=== PATIENT | male | born 1940 | race Caucasian/White ===

== ENCOUNTER → 2016-11-16 | Outpatient (CLI) | payer MEDICARE, OTHER ==
[~2016-11-16] MED LIST: AMLO5TAB2 PO; ATOR1TAB19 PO; CARV3.12 PO; CARV6.25 PO; CEFD300CAP PO; COLA100C PO; DRIS50002 PO; FINA5TAB2 PO; FLOM5CAP PO; GLYB5TA PO; JANU100T PO; LEVA250T PO; LISI-538 PO; MILKSUS PO; NORC5TAB PO; OMEP40CA2 PO; SENO8.6T2 PO; TRIA37.5 PO; TYLE325T5 PO; VITA200028 PO
== END ==
LOC: M LAB 16:29
PROVIDERS: ATTEND Nurse Practitioner Family
DX: E11.9 Type 2 diabetes mellitus without complications (principal)

== ENCOUNTER → 2016-11-16 | Outpatient (CLI) | payer MEDICARE, OTHER ==
--- NOTE | 2016-11-16 17:16 | REP ---
CT head without contrast: History: Normal pressure hydrocephalus. Comparison: 12/06/2015 Areas of decreased attenuation are present in the periventricular white matter. This represents small vessel ischemic disease. There is no intraparenchymal hemorrhage, mass or midline shift. A shunt is present in the left lateral ventricle. There is dilatation of the ventricular system consistent with mild hydrocephalus that is slightly decreased compared to the previous study. The cortical sulci are dilated consistent with mild volume loss. There is no extracerebral collection. Minimal mucosal thickening is present in the right ethmoid and the left sphenoid sinuses. IMPRESSION: 1. Small vessel ischemic disease. 2. Mild hydrocephalus is present that is slightly decreased compared to the previous study. A shunt is present in the left lateral ventricle. 3. Mild volume loss. Signed by Benito Sullivan MD 11/16/2016 05:26 P
== END ==
LOC: M RAD 16:43
PROVIDERS: ATTEND Psychiatry & Neurology Neurology
DX: I73.9 Peripheral vascular disease, unspecified (principal); G91.2 (Idiopathic) normal pressure hydrocephalus; R26.81 Unsteadiness on feet; E11.9 Type 2 diabetes mellitus without complications

== ENCOUNTER → 2017-04-27 | Outpatient (CLI) | payer MEDICARE, OTHER ==
[~2017-04-27] MED LIST changes: +ARIC1TAB2 PO; +ASPI325T PO; +CHLO25TA PO; +CLOP75TA2 PO; -COLA100C PO; +COLA100C5 PO; +ECOT81TA5 PO; +JARD1TAB3 PO; +LANTINJ4 SQ; +LEVA1TAB PO; -LEVA250T PO; +MEMA1TAB2 PO; +NORC1TAB4 PO; -NORC5TAB PO; -SENO8.6T2 PO; +SENO8.6T5 PO; +SPIR25TA2 PO
[2017-04-27 15:54] LABS: CALCIUM LEVEL 9.4 MG/DL (8.8-10.2); CREATININE FOR GFR 2.51 MG/DL (0.70-1.30); GLOMERULAR FILTRATION RATE 26.8 (>42); POTASSIUM SERUM 3.7 MEQ/L (3.5-5.1)
== END ==
LOC: M LAB 14:42
PROVIDERS: ATTEND Nurse Practitioner Family
DX: I11.9 Hypertensive heart disease without heart failure (principal)

== ENCOUNTER → 2017-04-27 | Outpatient (CLI) | payer MEDICARE, OTHER | LOC: M LAB 14:46 | PROVIDERS: ATTEND Nurse Practitioner Family | DX: E11.9 Type 2 diabetes mellitus without complications (principal) ==

== ENCOUNTER 2017-05-11 14:15 | Observation (INO) | payer MEDICARE, OTHER ==
[~2017-05-11] VITALS: Ht 177.8 cm; Wt 112.6 kg
[~2017-05-11 14:15] MED LIST changes: -ARIC1TAB2 PO; -ASPI325T PO; -CHLO25TA PO; -CLOP75TA2 PO; -ECOT81TA5 PO; -JARD1TAB3 PO; -LANTINJ4 SQ; -MEMA1TAB2 PO; -SPIR25TA2 PO
[2017-05-11] MEDS ORDERED: SPIR25TA2 PO (14:27)
[2017-05-11] MEDS ORDERED: JARD1TAB3 PO (14:27)
[2017-05-11] MEDS ORDERED: ARIC1TAB2 PO (14:27)
[2017-05-11] MEDS ORDERED: LANTINJ4 SQ (14:27)
[2017-05-11] MEDS ORDERED: MEMA1TAB2 PO (14:27)
[2017-05-11] MEDS ORDERED: NS 500 ML IV ONE (15:00)
--- NOTE | 2017-05-11 15:23 | REP ---
CT HEAD WITHOUT CONTRAST: HISTORY: Vertigo. COMPARISON: 11/16/2016 Areas of decreased attenuation are present in the periventricular white matter. This represents small vessel ischemic disease. There is no intraparenchymal hemorrhage, mass or midline shift. A shunt is present in the body of the left lateral ventricle. There is dilatation of the ventricular system consistent with mild hydrocephalus that is unchanged compared to the previous study. The cortical sulci are dilated consistent with mild volume loss. There is no extracerebral collection. Minimal mucosal thickening is present in the left sphenoid sinus. IMPRESSION: 1. Small vessel ischemic disease. 2. Mild hydrocephalus unchanged compared to the previous study. A shunt is present in the left lateral ventricle. 3. Mild volume loss. Signed by Benito Sullivan MD 05/11/2017 03:31 P
[2017-05-11 15:29] LABS: BASO # 0.1 K/mm3 (0.0-0.2); BASO % 0.7 % (0.0-1.0); EOS # 0.2 K/mm3 (0.0-0.50); EOS % 1.4 % (0.0-3.0); LARGE UNSTAINED CELL # 0.1 K/mm3 (0.0-0.4); MEAN CORPUSCULAR HEMOGLOBIN 28.2 pg (27.0-33.0); MEAN CORPUSCULAR HGB CONC 33.5 g/dl (32.0-36.5); MEAN CORPUSCULAR VOLUME 84.2 fl (80.0-96.0); MONO # 0.6 K/mm3 (0.0-0.8); MONO % 4.7 % (0.0-5.0); NEUTROPHILS # 9.7 K/mm3 (1.8-7.7); NEUTROPHILS % 77.2 % (36.0-66.0); PLATELET COUNT, AUTOMATED 242 k/mm3 (150-450); RED CELL DISTRIBUTION WIDTH 13.1 % (11.5-14.5); WHITE BLOOD COUNT 12.5 K/mm3 (4.0-10.0)
[2017-05-11 15:49] LABS: ALBUMIN 3.8 GM/DL (3.2-5.2); ALBUMIN/GLOBULIN RATIO 0.95 (1.00-1.93); ALKALINE PHOSPHATASE 87 U/L (45-117); ALT/SGPT 24 U/L (12-78); ANION GAP 10 MEQ/L (8-16); AST/SGOT 10 U/L (15-37); BILIRUBIN,DIRECT < 0.1 MG/DL (0.0-0.2); BILIRUBIN,TOTAL 0.4 MG/DL (0.2-1.0); BLOOD UREA NITROGEN 42 MG/DL (7-18); CALCIUM LEVEL 9.3 MG/DL (8.8-10.2); CARBON DIOXIDE LEVEL 27 MEQ/L (21-32); CHLORIDE LEVEL 103 MEQ/L (98-107); CREATININE FOR GFR 2.09 MG/DL (0.70-1.30); GLOMERULAR FILTRATION RATE 33.1 (>42); GLUCOSE, FASTING 246 MG/DL (83-110); POTASSIUM SERUM 3.7 MEQ/L (3.5-5.1); SODIUM LEVEL 140 MEQ/L (136-145); TOTAL PROTEIN 7.8 GM/DL (6.4-8.2)
--- NOTE | 2017-05-11 16:10 | REP ---
Shunt series: 05/11/2017 Comparison AP lateral skull, 02/28/2016, CT brain 05/11/2017, CT abdomen pelvis 11/03/2015. AP skull: There is a right-sided ventriculostomy catheter with tip near the midline on the right side. This is as seen on the automobile club membership sales agent view from the CT scan this afternoon. Visualized sinuses and mastoids are clear. The shunt tubing courses down the scalp along the right side of the neck. The chest shunt tubing coursing down the right side of the neck over the anterior right chest and extending over to the right upper abdomen. On this view, lungs are without acute findings. The heart is not enlarged for AP supine technique. No widened of the mediastinum or definite infiltrate or edema. Abdomen: Two supine views of the abdomen shows shunt tubing coursing overlying the right upper quadrant extending into the abdomen and curving back up from left to right ending just below the superior margin of the iliac crest on the right side. There are some degenerative changes in the spine and hips. Gas pattern nonspecific. Impression: 1. Intact CAMPAIGN MARKETING MANAGER shunt from the shunt tip in the lateral ventricles through the annie hole, along the neck and right chest wall and into the abdomen as described. Signed by Rafiq Ford MD 05/11/2017 07:08 P
[2017-05-11] MEDS ORDERED: GLUCAGON FOR INJ 1 MG VIAL (J1610) SC PRN (17:00)
[2017-05-11] MEDS ORDERED: DEXTROSE 50% 50 ML SYRINGE IV PRN (17:00)
[2017-05-11] MEDS ORDERED: GLUCOSE 4 GM CHEW TABLET PO PRN (17:00)
[2017-05-11] MEDS ORDERED: ASPI325T PO (17:17)
[2017-05-11] MEDS ORDERED: CHLO25TA PO (17:17)
--- NOTE | 2017-05-11 20:40 | REPUSA ---
CLINICAL HISTORY: TIA. TECHNIQUE: Realtime sonographic images were obtained in multiple projections. COMMENTS: Realtime examination demonstrates mild echogenic plaque at the bifurcation on the right and proximal right internal carotid artery. Mild echogenic plaque is also documented at the bifurcation on the left and proximal left internal ca rotid artery. Hemodynamic measurement shows no evidence of hemodynamically significant stenoses. The right ICA systolic/diastolic velocities are 93/23 cm/sec. The left ICA systolic/diastolic velocit ies are 78/15 cm/sec. The right IC/CC ratio is 1.0, the left IC/CC ratio is 0.73. External carotid arteries are unremarkable. Vertebral arteries are visualized and have normal antegra de flow. IMPRESSION: 1. Mild echogenic plaque formation at both carotid bifurcations with extension into the ICAs with est imated 0-39% stenosis. 2. No evidence of hemodynamically significant stenosis. Thank you for your kind referral of this patient.
--- NOTE | 2017-05-11 20:55 | REP ---
MRA BRAIN WITHOUT CONTRAST: HISTORY: Infarction. 3D time of flight MR angiography was performed at the level of the [place]. The examination was limited secondary to motion. There is no aneurysm or arteriovenous malformation. Mild atherosclerotic disease involves the cavernous and supraclinoid internal arteries, middle cerebral artery trifurcations and posterior cerebral arteries. There is origin of the posterior cerebral arteries. The basal artery is hyoplastic. Major intracranial vessels are patent. IMPRESSION: 1. There is no aneurysm or arteriovenous malformation. 2. Atherosclerotic disease as described above. Signed by Benito Sullivan MD 05/12/2017 08:22 A
--- NOTE | 2017-05-11 20:56 | REP ---
SKULL, FIVE VIEWS: HISTORY: Ventricular shunt. A ventricular shunt is present with the tip in the region of the bodies of the lateral ventricles. There is no shunt discontinuity. There is no skull lesion. IMPRESSION: There is no shunt discontinuity. Signed by Benito Sullivan MD 05/12/2017 08:07 A
[2017-05-11 21:16] VITALS: BP 173/74
--- NOTE | 2017-05-11 21:26 | REP ---
MR BRAIN WITHOUT CONTRAST: HISTORY: Vertigo. COMPARISON: 02/28/2016 The examination is limited secondary to artifact from a ventricular shunt. Artifact partially obscures the right frontal and parietal lobes. Areas of increased signal intensity on T2 weighted images are present in the periventricular and subcortical white matter. This represents small vessel ischemic disease. There is no intraparenchymal hemorrhage, infarct or mass. A shunt is present in the body of left lateral ventricle. There is dilatation of the ventricular system consistent with mild hydrocephalus. The cortical sulci is dilated consistent with mild volume loss. There are small chronic subdural fluid collections measuring 2.5 mm in width over the cerebral hemispheres. There is no midline shift. Mucosal thickening is present in the left sphenoid sinus. IMPRESSION: 1. Limited examination demonstrating no definite acute infarction. 2. Small vessel ischemic disease. 3. Mild volume loss. 4. Mild hydrocephalus unchanged compared to the previous study. 5. There are small 2.5 mm chronic subdural fluid collections over the cerebral hemispheres. Signed by Benito Sullivan MD 05/12/2017 08:12 A
[2017-05-11] MEDS: HumaLOG INSULIN (NovoLOG) PER UNIT SC SCH ×2 (21:30→21:40)
[2017-05-11] MEDS: LEVEMIR (INSULIN DETEMIR) 1 UNITS/0.01ML SQ SCH (21:41)
[2017-05-11] MEDS: FINASTERIDE 5 MG TAB PO SCH (21:45)
[2017-05-11] MEDS: ATORVASTATIN 10 MG TAB PO SCH (21:45)
[2017-05-11 22:00] VITALS: BP 168/80
[2017-05-12] VITALS (7 sets, daily range): BP systolic 135–172; BP diastolic 65–82
[2017-05-12 05:13] LABS: MEAN CORPUSCULAR HEMOGLOBIN 28.1 pg (27.0-33.0); MEAN CORPUSCULAR HGB CONC 33.4 g/dl (32.0-36.5); MEAN CORPUSCULAR VOLUME 84.1 fl (80.0-96.0); RED CELL DISTRIBUTION WIDTH 13.2 % (11.5-14.5)
[2017-05-12 05:39] LABS: CALCIUM LEVEL 9.1 MG/DL (8.8-10.2); CREATININE FOR GFR 1.83 MG/DL (0.70-1.30); GLOMERULAR FILTRATION RATE 38.6 (>42); POTASSIUM SERUM 3.1 MEQ/L (3.5-5.1)
[2017-05-12] MEDS ORDERED: POTASSIUM CHLORIDE 10 MEQ SR TABLET PO ONE (07:30)
[2017-05-12] MEDS: HumaLOG INSULIN (NovoLOG) PER UNIT SC SCH ×4 (08:31→21:35)
[2017-05-12] MEDS: LEVEMIR (INSULIN DETEMIR) 1 UNITS/0.01ML SQ SCH ×2 (08:31→21:35)
[2017-05-12] MEDS: MEMANTINE 5MG TABLET (NAMENDA) PO SCH ×2 (08:32→21:36)
[2017-05-12] MEDS: TAMSULOSIN 0.4 MG CAP PO SCH (08:33)
[2017-05-12] MEDS: amLODIPine 5 MG TAB PO SCH (08:33)
[2017-05-12] MEDS: CARVedilol 6.25 MG TAB PO SCH ×2 (08:33→21:37)
[2017-05-12] MEDS ORDERED: ASPIRIN 325 MG TAB PO SCH (09:00)
--- NOTE | 2017-05-12 09:08 | HPE ---
DATE OF ADMISSION: 05/11/2017 CHIEF COMPLAINT: 77-year-old gentleman complaining of vertigo. HISTORY OF PRESENT ILLNESS: This is a 77-year-old gentleman with significant history of ventriculoperitoneal (TASSEL SNIPPER) shunt due to history of dementia, chronic kidney disease, diabetes, benign prostatic hypertrophy (BPH), hyperlipidemia, hypertension and (GERD) gastroesophageal reflux disease who presents complaining of dizziness and visual blurriness that started around 12 pm today. The patient states that he has some nausea associated with this as well. The patient's symptoms resolved after coming to the emergency room. The patient denies any prodromal illness such as fever, chills, cough, sputum production, abdominal pain, diarrhea or dysuria. The patient also denies any precipitating factor that might have contributed to this as well such as chest pain, dizziness. The patient denies any change in habit. As per family, the patient had been doing well and was his regular self when all of a sudden, he developed some dizziness. The patient takes aspirin once a day and took his regular home regimen today. There was conversation with his body art technician who recommended holding his spironolactone, which did not go into effect due to the patient's history of dizziness and coming to the emergency room today. The patient was evaluated in the emergency room, had CT of the head which did not show any significant finding for any acute process but did show small vessel ischemic disease. Mild hydrocephalus unchanged compared to the previous study. A shunt is present in the left lateral ventricle. Mild volume loss. The patient also had a shunt study, which did not show any acute process. Dr. Alberto, the neurologist, was consulted who recommended MRI of the brain, but do to the patient's TASSEL SNIPPER shunt, Dr. Jackson, neural surgeon was consulted by the emergency room who recommended getting the shunt study. After conversation between the neurology and neurosurgery, it was planed for the patient to have an x-ray of his head to confirm the vent setting that was found on the previous record and proceed to MRI of the brain. Dr. Alberto recommended changing anticoagulant therapy and blood pressure medication adjustment accordingly to the MRI finding. The patient is resting comfortably in the emergency room without any complaints at this time. The patient states that his symptoms of dizziness and blurry vision has improved and almost resolved and back to his baseline. Confirmed by family members who are at the bedside. REVIEW OF SYSTEMS: 10-point review of system is negative other than those described in the history of present illness (HPI). PAST MEDICAL HISTORY: Significant for : Chronic kidney disease. Diabetes. Benign prostatic hypertrophy (BPH). Hyperlipidemia. Hypertension. Gastroesophageal reflux disease (GERD). PAST SURGICAL HISTORY: Included TASSEL SNIPPER shunt. ALLERGIES: The patient is allergic to ASPIRIN, bee venom, PENICILLIN - causes anaphylactic reaction. His medications from home are as follows: - amlodipine 5 mg daily - aspirin 325 by mouth daily, which he took today - atorvastatin 10 mg by mouth nightly - carvedilol 6.25 mg by mouth twice a day - chlorthalidone 25 mg by mouth daily - Aricept 10 mg nightly - Jardiance 25 mg by mouth daily - finasteride 5 mg by mouth nightly - Lantus 35 units subcu twice a day - loratadine 10 mg by mouth twice a day - spironolactone 12.5 mg by mouth daily - Flomax 0.4 mg by mouth daily - vitamin D 50,000 units by mouth weekly on Wednesday PHYSICAL EXAMINATION: VITAL SIGNS: Temperature 98.9, heart rate 84, respiratory rate 16, blood pressure 168/88, saturating 97% in room air. HEENT: Normocephalic. No trauma. Inspection of the eyes, nose, and throat is within normal. Pupils equal, round, and reactive to light and accommodation (PERRLA). Mucosa is moist. Neck is supple. No tracheal deviation. CARDIAC: S1, S2, regular rate and rhythm. Pulses present. LUNGS: Equal air entry. Did not hear any wheezes, rales, or rhonchi. ABDOMEN: Soft, nontender. Bowel sounds present. LOWER EXTREMITIES: No significant pitting edema. Capillary refill present in all four extremities. Skins is intact, warm to touch, afebrile. Patient is currently awake, alert, oriented times three. Cranial nerves grossly intact. Motor and sensory are intact. Normal mood and affect for current situation and family at the bedside. The patient did have complaint of dizziness and visual disturbance, which is blurriness of his vision associated with his vertigo symptoms initially. But at this point, the patient states that all of these symptoms have resolved. The patient is alert, awake, oriented, able to answer multiple questions without difficulty. Perform multiple takes without difficulty. Had normal gait. Normal visual field. At this time facial palsy is none. Upper and lowers remain no motor drift. No limb ataxia noted. Sensory is intact. Language: No aphasia. No dysarthria. Normal extension and inattention. DIAGNOSTIC STUDIES: The patient had shunt imaging, and as per radiology, showed intact TASSEL SNIPPER shunt from the shunt tip in the lateral ventricle through the bur hole along the neck and right chest wall and into the abdomen as described in the finding on the computer. Please refer to the shunt imaging for further detail. CT of the head, as per radiology shows small vessel ischemic disease. Mild hydrocephalus unchanged compared to the previous study. A shunt is present in the left lateral ventricle. Mild volume loss. Diagnostic studies that the patient has had: WBC 12.5, hemoglobin and hematocrit 17.8 and 33.1, platelet count is within normal. Complete metabolic profile is within normal except for creatinine of 2.09, BUN 42, glucose is 246, AST 10. Cardiac enzyme times two has been negative but CK did go from 3.3 to 3.7. Again troponin times two has been negative still. TSH is within normal. ASSESSMENT/PLAN: This is a pleasant 77-year-old gentleman with significant past medical history of chronic kidney disease, diabetes, BPH, hyperlipidemia, hypertension, GERD who has a history of TASSEL SNIPPER shunt secondary due to dementia history, who presented complaining of vertigo and blurry vision that started around 12 pm, resolved after being in the emergency room past the 3-4 hour window kiet. PROBLEMS: 1. Vertigo and visual disturbances suspected as transient ischemic attack (TIA) and to rule out central pathology. The patient will be placed on telemetry. Will get serial cardiac enzyme, echocardiogram and carotid Doppler. Dr. Alberto, the neurologist was consulted who recommends MRI and depending on the result, will adjust the anticoagulant therapy. In addition, adjust the blood pressure medicine accordingly. If the patient has an ischemic finding, stronger anticoagulant therapy including Plavix will be considered and will allow for permissive hypertension. But if the MRI is negative, please refer to Dr. Alberto's note for further recommendation and for blood pressure control as well. I have spoken to Dr. Jackson, the neurosurgeon, who requested TASSEL SNIPPER shunt study. But after speaking with Dr. Alberto directly, Dr. Alberto and Dr. Jackson did come up with a plan of getting an x-ray and followup MRI. Will defer further management of the TASSEL SNIPPER shunt and evaluation for TIA, CVA to neurosurgery and neurology respectively. Continue statin. 2. Diabetes: Fingerstick monitoring insulin coverage. 3. Chronic kidney disease. Will defer fluid and adjustment of blood pressure medicine to Dr. Alberto. At this time, will await MRI finding. Put a hold on renal toxic medication for now if possible. But creatinine seems to be stable at this time. Continue to monitor. 4. Benign prostatic hypertrophy: Resume Proscar, but will hold Flomax. 5. Hyperlipidemia: Resume statin. 6. Hypertension: Will defer to neurology. 7. History of gastroesophageal reflux disease (GERD): Currently not on any medication. Will hold off as necessary and treat symptomatically. If patient is to go on stronger anticoagulant therapy, GI treatment to be also considered as well. Will hold off until the MRI result and recommendation of the specialist. 8. Deep venous thrombosis prophylaxis.
--- NOTE | 2017-05-12 11:38 | IPNPDOC ---
Text Note Date of Service The patient was seen on 05/12/17. NOTE Subjective: Patient seen and examined at bedside. Patient is feeling well. Still have left sided lower extremity numbness from before. Admits to loss of peripheral vision since shun was placed in. Denies any further spinning sensation, dizziness, change of vision, weakness on one side of his body that is new, or any other change of senations. Denies any chest pain, sob, abdominal pain, nausea, vomiting, diarrhea, and constipation, blood in urine or stool. Denies any other current new complaints. Objective: Vitals: (See below) General: Elderly male sitting comfortably in chair, AAOx3, not in apparent distress, with head elevated at 30 degrees HEENT: Normal cephalic atraumatic, Extraocular motion intact, pupil equal round and reactive to light, ~mucosal membrane moist, neck supple, no neck lymphadenopathy Cardio: RRR, Normal S1, S2, No murmur/rubs/gallops Pulm: Clear to auscultations bilaterally, no wheezing, rales, or rhonchi. Abdomen: Obese, + bowel sounds, soft, none tender, none distended, no peritoneal signs, no ecchymosis, no masses that were palpable Ext: No edema, clubbing, or cynosis Skin: Warm and dry, purplish plaque on bilateral shins Neuro: Cranial Nerve 2 through 12 intact, No focal neurological deficit Labs ( See below) Most significantly: Images/Procedures: 05/11/17: Shunt Study: Intact ONLINE AFFILIATE MARKETING MANAGER shunt. Head CT without contrast: No acute findings. Brain MRI/MRA: No acute infarction. Small 2.5 mm chronic subdural fluid collection over cerebral hemispheres. No aneurysm or AV malformation. Skull X-Ray: No shunt discontinuity Vascular US of b/l carotid: Mild echogenic plaque formation at both bifurcation extension into ICA 0 to 39% stenosis. Assessment and Plan: 1. Vertigo with visual disturbances suspect TIA -c/s neurology, recommended to continue ASA 325 mg daily -c/s neurosurgery, stated no issues with ONLINE AFFILIATE MARKETING MANAGER shunt -Continue neurocheck q 4 hours -Cardiac telemetry -Follow up Echo result -PT/OT 2. Polycythemia -Ordered EPO, and DENIS mutation 3. Diabetes -Levemir 35 u sub bid -ISS, Finger sticks 4. CKD -At baseline 5. BPH -Continue Flomax, Proscar 6. HLD -Lipitor 7. HTN -Norvasc 5 mg daily, Coreg 6.25 mg bid, -Holding chlorthalidone 25 mg PO daily -Holding Spironolactone 12.5 mg daily 8. Hx of GERD -Not on any medication at home ~ DVT prophylaxis: Heparin 5000 u sc q 8H Fluid, Electrolytes, Nutrition: Diabetic diet with low salt Code: Not discussed. Disposition: Continue to monitor patient in PCU. Continue to follow neurology recommendations. VS,Fishbone, I+O VS, Fishbone, I+O Laboratory Tests 05/11/17 15:14 Red Blood Count 6.31 H, Mean Corpuscular Volume 84.2, Mean Corpuscular Hemoglobin 28.2, Mean Corpuscular Hemoglobin Concent 33.5, Red Cell Distribution Width 13.1, Neutrophils (%) (Auto) 77.2 H, Lymphocytes (%) (Auto) 15.0 L, Monocytes (%) (Auto) 4.7, Eosinophils (%) (Auto) 1.4, Basophils (%) ( Auto) 0.7, Neutrophils # (Auto) 9.7 H, Lymphocytes # (Auto) 2.0, Monocytes # ( Auto) 0.6, Eosinophils # (Auto) 0.2, Basophils # (Auto) 0.1 05/12/17 04:57 Red Blood Count 6.26 H, Mean Corpuscular Volume 84.1, Mean Corpuscular Hemoglobin 28.1, Mean Corpuscular Hemoglobin Concent 33.4, Red Cell Distribution Width 13.2, Calcium Level 9.1 Vital Signs Date Time Temp Pulse Resp B/P (MAP) Pulse Ox O2 Delivery O2 Flow Rate FiO2 05/12/17 08:33 78 140/80 05/12/17 08:00 97.2 20 96 Room Air I&O- Last 24 Hours up to 6 AM 05/12/17 06:00 Intake Total 40 ml Output Total 575 ml Balance -535 ml GME ATTESTATION GME ATTESTATION My preceptor for this patient encounter was physically present in the building during the encounter and was fully available. As needed, all aspects of the patient interview, examination, medical decision making process, and medical care plan development were reviewed and approved by the preceptor. Preceptor is aware and concurs with the plan as stated in the body of this note and will attest to such by his/her cosignature. ATTENDING NOTE I, Gonzalo Guardado, have both independently examined this patient as well as reviewed the documentation. I have discussed in detail with the resident the findings and plan of treatment as documented in the residents documentation. I will continue to follow the patient and offer further guidance to the patients care as necessary during this hospital stay. MAGY BAILEY DO May 12, 2017 11:38 GONZALO GUARDADO MD May 15, 2017 17:31
[2017-05-12] MEDS: HEPARIN SOD (PORCINE) 5000 UNITS/ML VIAL SQ SCH ×2 (13:26→21:35)
--- NOTE | 2017-05-12 14:05 | ECGEPIP ---
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
--- NOTE | 2017-05-12 16:02 | REP ---
AP AND LATERAL SKULL: HISTORY: Shunt setting. A shunt is present with its tip in the region of the bodies of the lateral ventricles. There is no shunt discontinuity. The shunt setting appears to be changed. IMPRESSION: There is no shunt discontinuity. The setting appears to be changed. Please consult neurosurgery to confirm the shunt setting. Signed by Benito Sullivan MD 05/12/2017 04:17 P
[2017-05-12] MEDS ORDERED: DONEPEZIL 5 MG TAB PO SCH (21:00)
[2017-05-12] MEDS: FINASTERIDE 5 MG TAB PO SCH (21:36)
[2017-05-12] MEDS: ATORVASTATIN 10 MG TAB PO SCH (21:37)
--- NOTE | 2017-05-12 21:57 | CR ---
DATE OF CONSULTATION: 05/12/2017 REASON FOR CONSULTATION: Assess for acute stroke. Mj Wright is a 77-year-old gentleman with past medical history significant for normal pressure hydrocephalus status post COUNCIL [employer] AGING DIRECTOR shunt placement, doing well until earlier today at noontime when he suddenly developed vertigo. The patient had an episode of vertigo. His blood pressure was elevated at 176/78, with a blood sugar of 202 when checked at his friend's house. The patient described vision loss as well. The patient's symptoms resolved by the time he took the aspirin. Head CT did not show any acute stroke. Emergency team did contact neurosurgery regional owner operator truck driver Dr. Jackson, who was consulted regarding whether the patient to have an MRI to assess for stroke. ER staff as advised to avoid an MRI and only obtain a head CT. After I was contacted and hearing the case, I did recommend the patient to receive an MRI to assess for any acute stroke given the sudden onset of the symptoms including vision loss suggesting central causes. The patient does take 325 mg of aspirin every day. He had taken it in the morning. MRI of the brain so far has been completed. It did not reveal any acute stroke. The patient continued to have right beating nystagmus in the emergency department though denied any visual field deficits. The patient's symptoms continued to improve. X-rays were completed of the skull prior to the MRI and after the MRI to assess for positioning of the shunt settings and it was read that the post MRI of the shunt settings have changed. Neurosurgery has already been contacted to be involved in the case to reprogram the patient's shunt. The patient denies any weakness or numbness throughout the body other than baseline symptoms. His gait is wide-based and he walks with use of the cane. He denies any dysarthria, aphasia or any nausea at the present time. He did experience mild nausea earlier in the day. PAST MEDICAL HISTORY: As per HPI. ALLERGIES: PENICILLIN; hives. CURRENT MEDICATIONS: - Carvedilol 6.25 mg by mouth twice a day - triamterene 37.5 mg by mouth daily - Januvia 100 mg daily - atorvastatin 10 mg by mouth at bedtime - finasteride 5 mg by mouth at bedtime - tamsulosin 0.4 mg one to two tablet daily - amlodipine 5 mg daily - vitamin D 1.25 mg by mouth weekly - glyburide 5 mg by mouth daily - omeprazole 40 mg by mouth every day - Aricept 10 mg at bedtime - Namenda 10 mg by mouth twice a day - aspirin 325 mg daily ALLERGIES: PENICILLIN; hives. REVIEW OF SYSTEMS: 14-point review of systems obtained and is negative except as per HPI. SOCIAL HISTORY: The patient denies any current use of tobacco, alcohol or illicit drugs. FAMILY HISTORY: Noncontributory. PHYSICAL EXAMINATION: Blood pressure is 168/88, pulse rate 84, respiratory rate is 16, temperature is 98.9 degrees Fahrenheit, 97% oxygen saturation on room air. The patient is alert, oriented to person, place and time. Speech language comprehension, and repetition are intact. Pupils are 3 mm round and reactive to light. Extraocular movements reveal right-sided nystagmus. Sensation V1, V2, V3 is intact to light touch. No facial asymmetry activation. Palate elevates symmetrical. Tongue is midline. Hearing is subjectively equal to finger rub. There is no pronator drift. Strength is 5/5 including bilateral deltoids, biceps, triceps, handgrip, iliopsoas, quadriceps and tibialis. Deep tendon reflexes are decreased throughout. Romberg testing is negative. Coordination: Normal [id number] without any signs of ataxia, dysmetria, visual field are full to confrontation. Sensory is intact to light touch in all four extremities. ASSESSMENT: 77-year-old right-handed male with history of dementia as well as normal pressure hydrocephalus status post COUNCIL ON AGING DIRECTOR shunt with sudden onset of vertigo and vision loss. The patient is suspected to have a TIA in the setting of normal MRI. The patient will be started on Plavix 75 mg by mouth daily with aspirin 81 mg by mouth daily x5 days then discontinuation of aspirin, continue on Plavix 75 mg daily. After the patient's MRI the patient will have reprogramming of the shunt by a neurosurgeon, Dr. Jackson. The patient will require PT/OT while in the hospital. The patient may require outpatient vestibular rehabilitation if his symptoms persist, although the patient is feeling much better throughout the hospital stay. The patient can followup with the [facility] neurology outpatient clinic as scheduled in 4-6 weeks.
[2017-05-13] VITALS: BP 141/84
[2017-05-13 04:00] VITALS: BP 172/78
[2017-05-13 05:34] LABS: MEAN CORPUSCULAR HEMOGLOBIN 28.6 pg (27.0-33.0); MEAN CORPUSCULAR HGB CONC 34.4 g/dl (32.0-36.5); MEAN CORPUSCULAR VOLUME 82.9 fl (80.0-96.0); RED CELL DISTRIBUTION WIDTH 13.3 % (11.5-14.5); WHITE BLOOD COUNT 11.6 K/mm3 (4.0-10.0)
[2017-05-13 05:48] LABS: CALCIUM LEVEL 9.3 MG/DL (8.8-10.2); CREATININE FOR GFR 1.85 MG/DL (0.70-1.30); GLOMERULAR FILTRATION RATE 38.1 (>42); POTASSIUM SERUM 3.6 MEQ/L (3.5-5.1)
[2017-05-13] MEDS: HEPARIN SOD (PORCINE) 5000 UNITS/ML VIAL SQ SCH ×2 (06:30→14:00)
[2017-05-13] MEDS: HumaLOG INSULIN (NovoLOG) PER UNIT SC SCH ×2 (07:30→11:56)
[2017-05-13 08:00] VITALS: BP 141/65
[2017-05-13 08:07] LABS: ERYTHROPOIETIN 4.4 mIU/mL (2.6-18.5)
[2017-05-13] MEDS ORDERED: ASPIRIN 81 MG ENTERIC TAB PO SCH ×2 (09:00→10:34)
[2017-05-13] MEDS ORDERED: ASPIRIN 325 MG TAB PO SCH (09:00)
[2017-05-13] MEDS ORDERED: CLOPIDOGREL 75 MG TAB PO SCH (09:00)
[2017-05-13] MEDS ORDERED: CLOP75TA2 PO (09:01)
[2017-05-13] MEDS ORDERED: ECOT81TA5 PO (09:01)
[2017-05-13] MEDS: LEVEMIR (INSULIN DETEMIR) 1 UNITS/0.01ML SQ SCH (10:00)
[2017-05-13] MEDS: CARVedilol 6.25 MG TAB PO SCH (10:00)
[2017-05-13] MEDS: MEMANTINE 5MG TABLET (NAMENDA) PO SCH (10:01)
[2017-05-13] MEDS: TAMSULOSIN 0.4 MG CAP PO SCH (10:01)
[2017-05-13] MEDS: amLODIPine 5 MG TAB PO SCH (10:03)
--- NOTE | 2017-05-13 12:27 | DSES ---
DATE OF ADMISSION: 05/11/2017 DATE OF DISCHARGE: 05/13/2017 Time patient was seen was this morning at 8:13. ADMISSION DIAGNOSES: 1. Vertigo and visual disturbances suspected for transient ischemic attack (TIA). Also rule out central pathology. 2. Diabetic. 3. Chronic kidney disease. 4. Benign prostatic hypertrophy (BPH). 5. Hyperlipidemia. 6. Hypertension. 7. History of gastroesophageal reflux disease. DISCHARGE DIAGNOSES: Including 1. Vertigo and visual disturbances suspected for transient ischemic attack (TIA) versus ventriculoperitoneal (HIGHWAY MAINTENANCE SUPERVISOR) shunt malfunctioning versus normal pressure hydrocephalus. 2. Polycythemia. 3. Insulins dependent type 2 diabetes. 4. Chronic kidney disease. 5. Benign prostatic hypertrophy (BPH). 6. Hyperlipidemia, 7. Hypertension. 8. Gastroesophageal reflux disease (GERD). CONSULTANTS: Dr. Alberto from neurology and Dr. Jackson from neurosurgery. PROCEDURES AND IMAGING: On 05/11/2017, the patient had a shunt study which showed intact HIGHWAY MAINTENANCE SUPERVISOR shunt from the shunt tip in the lateral ventricle through the bur hole along the neck and right chest wall into the abdomen as described. Also CT of the head without contrast showed small vessel ischemic disease, mild hydrocephalus unchanged compared to previous study. A shunt is present in the left lateral ventricle. Mild volume loss. An MRI of the brain without contrast showed a limited examination demonstrating no definite acute infarction. Small vessel ischemic disease, mild volume loss, mild hydrocephalus unchanged compared to previous study. There are small 2.5 mm chronic subdural fluid collections over the cerebral hemispheres. The skull x-ray shows no shunt discontinuity. Doppler duplex of the carotids shows mild echogenic plaque formation at both carotid bifurcation with extension into the ICA with estimated 0-39% stenosis. No evidence of hemodynamic significant stenosis. MRA of the brain shows no aneurysm or arteriovenous malformation. Atherosclerotic disease was noted however. On 05/12/2017, the patient had a repeat skull x-ray that showed no shunt discontinuity. The setting appears to be changed for the shunt. Labs that are pending including JAK2 mutation. HISTORY OF PRESENT ILLNESS: 77-year-old gentleman with significant history of HIGHWAY MAINTENANCE SUPERVISOR shunt due to history of dementia from hydrocephalus, chronic kidney disease, diabetes, BPH, hyperlipidemia, hypertension, gastroesophageal reflux disease, complaining of dizziness and visual blurriness that started around 12 pm on the day of admission. The patient stated he has been feeling some nausea. His symptoms resolved after coming to the emergency room. He denied any prodromal illness such as fever, chills, coughs, sputum production, abdominal pain, diarrhea, dysuria. The patient also denied any precipitating factor that might have contributed to this as well as chest pain, dizziness. The patient denies any change in habits. As per family, the patient had been doing well and was his regular self when all of a sudden, the patient developed some dizziness. The patient takes aspirin once a day and took his regular home regimen today. There was conversation with his cancer center director who recommended holding spironolactone, which did not go into effect due to patient's history of dizziness coming to the emergency room today. The patient was evaluated in the emergency room. Had a CT of the head which did not show any significant acute findings. Mild hydrocephalus was unchanged. Shunt was present in the left lateral ventricle. The patient also had a shunt study which did not show any acute process. Dr Alberto, the neurologist was consulted who recommended MRI of the brain. Dr. Jackson, neurosurgeon was also consulted. Recommended a shunt study. After conversation between neurology and neurosurgery, it was planned for patient to have an x-ray of the head done to confirm the shunt setting that was found in the report of a previous MRI of the brain. Dr. Alberto recommended change anticoagulant therapy and blood pressure medication adjustment according to MRI finding. The patient was resting comfortably in the emergency room without any complaint at the time the admitting physician saw him. The patient stated his symptoms of dizziness and blurriness was improved at that time and almost resolved and back to his baseline. Also confirmed by a family member who was at the bedside. HOSPITAL COURSE: As stated in the history of present illness (HPI), Dr. Alberto and Dr. Jackson were consulted and recommended a shunt study and MRI of the brain which did not produce significant difference compared to the previous studies. Over the next 2 says, the patient's condition remained the same. The patient was back to baseline. The patient did not feel any additional change of sensations or any weakness or any dizziness. However, Dr. Alberto recommended statin to be changed by Dr. Jackson before the patient goes home. Echocardiogram was done on the day of discharge which should be followed up as an outpatient and the patient should continue aspirin for 5 more days and take it along with Plavix 75 mg by mouth daily. The patient also expressed that he does not want to stay in the hospital any longer. Discharged to home with services. DISCHARGE CONDITION: Stable Discharge medications including new medication: - aspirin 81 mg one tablet by mouth daily for 4 more days - Plavix 75 mg one tablet by mouth daily Continue home medications including: - amlodipine 5 mg by mouth daily - atorvastatin 10 mg one tablet by mouth nightly - carvedilol 6.25 mg one tablet by mouth twice a day - chlorthalidone 25 mg by mouth daily - donepezil 10 mg by mouth nightly - Jardiance 25 mg one tablet by mouth daily - finasteride 5 mg one tablet by mouth nightly - Lantus insulin 35 unit subcutaneously twice a day - memantine hydrochloride 10 mg one tablet by mouth twice a day - spironolactone 12.5 mg one tablet by mouth daily - tamsulosin 0.4 mg one tablet by mouth daily - vitamin D 50,000 units by mouth weekly Stopping medications include aspirin 325 mg one tablet by mouth daily FOLLOWUP: The patient should followup with patient's primary care provider, Anel Chan on 05/19/2017 and neurology, Dr. Alberto on 05/15/2017. Also neurosurgery, Dr. Jackson within 1 month. Additional instructions: If the patient experiences additional dizziness that has been persistent or any weakness on one side of his body, or any other change in sensations, the patient should call primary care provider or go to the emergency room. The patient has been discussed with the attending doctor, Dr. Starks. My preceptor for this patient encounter was Dr. Gonzalo Starks. The preceptor was physically present in the building during the encounter and was fully available. As needed, all aspects of the patient interview, examination, medical decision making process, and medical care plan development were reviewed and approved by the preceptor. The preceptor is aware and concurs with the plan as stated in the body of this note and will attest to such by his/her cosignature. Edited: [facility] 05/14/2017 1601 I, Gonzalo Starks, have both independently examined this patient as well as reviewed the documentation. I have discussed in detail with the resident the findings and plan of treatment as documented in the residents documentation. I will continue to follow the patient and offer further guidance to the patients care as necessary during this hospital stay. LORENZA
--- NOTE | 2017-05-13 19:48 | ECHO ---
DATE OF PROCEDURE: 05/13/2017 AGE: 77 GENDER: Male HEIGHT: 70 inches. WEIGHT: 255 pounds. BODY SURFACE AREA 2.32 m2. INPATIENT: ICU room 3206 REFERRING PHYSICIAN: Dr. Erin Lerma INDICATION: Transient ischemic attack (TIA)? Cardiac source of embolic material. MEASUREMENTS: 2-D Measurements: RV - 4.2 cm LV - 4.2 cm Septum - 1.4 cm Posterior wall - 1.4 cm Aortic root - 3.0 cm LA - 4.5 cm LVEF - 75% Doppler Measurements: AV - 2.0 m/s LVOT - 1.2 m/s LVOT diameter - 2.3 cm MV-E 94, A - 160, E/A ratio 0.6 Early mitral deceleration time 327 ms E prime 5.8, A prime 10, E/E prime ratio 16.4 PV - 1.0 m/s Pulmonary artery acceleration time - 106 ms RVSP - 36 mmHg IVC - 1.7 cm COMMENTS: Normal sinus rhythm with first-degree AV block and right bundle branch block. Mild to moderately dilated left atrium but normal left ventricular size. Right heart chamber sizes were upper limits of normal. Left ventricle (LV) wall thickness was mild to moderately increased symmetrically. On real-time imaging from the parasternal and apical projections wall motion was symmetrical and hyperkinetic. Severe mitral annular calcification with slightly thickened mitral leaflet edges but adequate cusp separation and leaflet excursion and no posterior systolic buckling. Three equal size aortic cusps with mildly thickened cusp edges but adequate cusp separation. Normal aortic root size. No obvious pedunculated mass. No mural thrombus. No pericardial effusion. Color flow Doppler study taken from the parasternal and apical projection showed trace aortic, mild mitral and mild tricuspid insufficiency. Guided continuous wave Doppler of his aortic valve and pulsed Doppler study of his LV outflow tract showed a slightly increased peak systolic velocity but increased LV outflow tract velocity as well with mean gradient of only 9 mmHg and dimensionless index of 0.6 - against any degree of LV outflow tract obstruction. Pulsed and continuous wave Doppler of his LV inflow tract taken from the apical four-chamber projection showed normal diastolic filling velocities against mitral stenosis. There was more prominent late diastolic / atrial dependent filling pattern. His early mitral deceleration time was prolonged. Tissue Doppler of his mitral annulus also confirmed degree of LV diastolic dysfunction. Estimated mean left atrial pressure using pulsed and tissue Doppler of his mitral annulus was at least mildly increased. Pulsed and continuous wave Doppler of his pulmonary trunk showed a normal peak systolic velocity against RV outflow tract obstruction. His pulmonary artery acceleration time was mildly abbreviated consistent with a mildly elevated pulmonary vascular resistance. Guided continuous wave Doppler of his tricuspid valve allowed our estimation of his right ventricular systolic pressure (at least mildly increased). Normal IVC size with reduced respiratory collapse suggestive a slightly elevated central venous pressure of 10 - 15 mmHg. CONCLUSIONS: Moderate aortic valvular sclerosis with trace insufficiency. Could not visualize a pedunculated vegetation but a small sessile vegetation could not be ruled out. Severe mitral annular calcification without inflow tract obstruction and only mild insufficiency. Moderate concentric left ventricle hypertrophy with hyperkinetic wall motion. Mild to moderately dilated left atrium with Doppler evidence of an impairment of LV diastolic function and at least mildly elevated mean left atrial pressure. Right heart chamber sizes upper limits of normal with normal wall motion but Doppler evidence of least mild pulmonary hypertension. Normal IVC size was slightly reduced respiratory collapse. If a cardiac source of embolic material is seriously suspect we would recommend complete blood count, sedimentation rate and two sets of blood cultures by at least 12 hours along with a transesophageal echocardiogram.
[2017-05-24 09:37] LABS: JAK2 MUTATIONS FOR PATH SENDOU See Pathology Report
== END 2017-05-13 15:11 | disposition home or self-care (01) ==
LOC: M ED 14:15 → M ED INP 19:03 → M ICU 20:57
PROVIDERS: ADMIT Internal Medicine; ATTEND Internal Medicine
DX: G45.9 Transient cerebral ischemic attack, unspecified (principal); R42 Dizziness and giddiness; D75.1 Secondary polycythemia; E11.9 Type 2 diabetes mellitus without complications; Z79.4 Long term (current) use of insulin; N18.9 Chronic kidney disease, unspecified; N40.0 Benign prostatic hyperplasia without lower urinary tract symptoms; E78.4 Other hyperlipidemia; I10 Essential (primary) hypertension; K21.9 Gastro-esophageal reflux disease without esophagitis; Z79.02 Long term (current) use of antithrombotics/antiplatelets; Z79.899 Other long term (current) drug therapy; Z88.0 Allergy status to penicillin; Z98.2 Presence of cerebrospinal fluid drainage device; Z91.030 Bee allergy status
CPT/HCPCS: 36415; 70250; 70260; 70450; 70544; 70551; 75809; 80048; 80076; 82140; 82550; 82553; 82668; 84443; 84484; 85025; 85027; 88300; 93005; 93041; 93306; 93880; 94760; 97161; 99285; G0378; G8978; G8979; G8980

== ENCOUNTER → 2017-05-27 | Outpatient (REF) | payer MEDICARE ==
[~2017-05-27] MED LIST changes: +ARIC1TAB2 PO; +ASPI325T PO; +CHLO25TA PO; +CLOP75TA2 PO; +ECOT81TA5 PO; +JARD1TAB3 PO; +LANTINJ4 SQ; +MEMA1TAB2 PO; +SPIR25TA2 PO
[2017-05-27 14:13] LABS: MEAN CORPUSCULAR VOLUME 82.5 fl (80.0-96.0); RED CELL DISTRIBUTION WIDTH 13.3 % (11.5-14.5); WHITE BLOOD COUNT 11.2 K/mm3 (4.0-10.0)
[2017-05-27 14:28] LABS: CALCIUM LEVEL 9.1 MG/DL (8.8-10.2); CREATININE FOR GFR 1.95 MG/DL (0.70-1.30); GLOMERULAR FILTRATION RATE 35.9 (>42); POTASSIUM SERUM 3.5 MEQ/L (3.5-5.1)
== END ==
LOC: M LAB REF 13:59
PROVIDERS: ATTEND Nurse Practitioner Family
DX: I12.9 Hypertensive chronic kidney disease with stage 1 through stage 4 chronic kidney disease, or unspecified chronic kidney disease (principal); N18.9 Chronic kidney disease, unspecified; Z86.73 Personal history of transient ischemic attack (TIA), and cerebral infarction without residual deficits

== ENCOUNTER → 2017-07-26 | Outpatient (CLI) | payer MEDICARE ==
[2017-07-26 16:01] LABS: MEAN CORPUSCULAR HEMOGLOBIN 27.5 pg (27.0-33.0); MEAN CORPUSCULAR VOLUME 83.1 fl (80.0-96.0); RED CELL DISTRIBUTION WIDTH 14.6 % (11.5-14.5); WHITE BLOOD COUNT 9.9 10^3/uL (4.0-10.0)
[2017-07-26 18:08] LABS: BLOOD UREA NITROGEN 44 MG/DL (7-18); CARBON DIOXIDE LEVEL 27 MEQ/L (21-32); CHLORIDE LEVEL 104 MEQ/L (98-107); CREATININE FOR GFR 1.98 MG/DL (0.70-1.30); GLUCOSE, FASTING 142 MG/DL (83-110); PHOSPHORUS LEVEL 3.4 MG/DL (2.5-4.9); POTASSIUM SERUM 3.8 MEQ/L (3.5-5.1); SODIUM LEVEL 141 MEQ/L (136-145)
[2017-07-26 18:23] LABS: ALBUMIN 3.8 GM/DL (3.2-5.2)
[2017-07-26 22:17] LABS: ANION GAP 10 MEQ/L (8-16)
== END ==
LOC: M LAB 15:21
PROVIDERS: ATTEND Nurse Practitioner Family
DX: I11.9 Hypertensive heart disease without heart failure (principal)

== ENCOUNTER → 2017-07-26 | Outpatient (CLI) | payer MEDICARE ==
[2017-07-26 16:02] LABS: BASO # 0.1 10^3/uL (0.0-0.2); BASO % 0.9 % (0.0-1.0); EOS # 0.3 10^3/uL (0.0-0.50); EOS % 3.3 % (0.0-3.0); IMMATURE GRANULOCYTE % 0.4 % (0-0); LYMPH # 2.2 10^3/uL (1.5-4.5); LYMPH % 22.3 % (24.0-44.0); MEAN CORPUSCULAR HEMOGLOBIN 27.3 pg (27.0-33.0); MEAN CORPUSCULAR HGB CONC 32.7 g/dl (32.0-36.5); MEAN CORPUSCULAR VOLUME 83.3 fl (80.0-96.0); MONO % 10.1 % (0.0-5.0); NEUTROPHILS # 6.2 10^3/uL (1.8-7.7); RED CELL DISTRIBUTION WIDTH 14.6 % (11.5-14.5); WHITE BLOOD COUNT 9.9 10^3/uL (4.0-10.0)
[2017-07-26 18:09] LABS: ALKALINE PHOSPHATASE 76 U/L (45-117); ALT/SGPT 28 U/L (12-78); AST/SGOT 11 U/L (15-37); BILIRUBIN,TOTAL 0.4 MG/DL (0.2-1.0); BLOOD UREA NITROGEN 44 MG/DL (7-18); CALCIUM LEVEL 8.8 MG/DL (8.8-10.2); CARBON DIOXIDE LEVEL 27 MEQ/L (21-32); CHLORIDE LEVEL 105 MEQ/L (98-107); CHOLESTEROL LEVEL 225 MG/DL (<200); CREATININE FOR GFR 1.99 MG/DL (0.70-1.30); GLUCOSE, FASTING 135 MG/DL (83-110); GLUCOSE,RANDOM 135 MG/DL (LESS THAN 200); POTASSIUM SERUM 3.8 MEQ/L (3.5-5.1); SODIUM LEVEL 141 MEQ/L (136-145); TOTAL PROTEIN 7.5 GM/DL (6.4-8.2); TRIGLYCERIDES LEVEL 187 MG/DL (<150)
[2017-07-26 18:22] LABS: ALBUMIN 3.9 GM/DL (3.2-5.2); ALBUMIN/GLOBULIN RATIO 1.08 (1.00-1.93)
[2017-07-26 22:16] LABS: ANION GAP 9 MEQ/L (8-16)
[2017-07-29 14:20] LABS: F8 ACTIVITY FOR F8 PANEL 73 % (57-163); F8 ACTIVITY vWB FOR F8 PANEL 53 % (50-200); F8 ANTIGEN FOR F8 PANEL 118 % (50-200); INTERPRETATION: Note (.)
== END ==
LOC: M LAB 15:18
PROVIDERS: ATTEND Physician Assistant Medical
DX: G45.9 Transient cerebral ischemic attack, unspecified (principal); I11.9 Hypertensive heart disease without heart failure; E55.9 Vitamin D deficiency, unspecified; I25.10 Atherosclerotic heart disease of native coronary artery without angina pectoris; E11.9 Type 2 diabetes mellitus without complications

== ENCOUNTER → 2017-09-13 | Outpatient (REF) | payer MEDICARE | LOC: M LAB REF 14:03 | PROVIDERS: ATTEND Internal Medicine Medical Oncology | DX: D75.1 Secondary polycythemia (principal) ==

== ENCOUNTER → 2017-10-21 | Outpatient (CLI) | payer MEDICARE ==
[2017-10-21 16:07] LABS: BASO # 0.2 10^3/uL (0.0-0.2); BASO % 1.1 % (0.0-1.0); EOS # 0.4 10^3/uL (0.0-0.50); EOS % 2.7 % (0.0-3.0); HEMATOCRIT 55.3 % (42.0-52.0); HEMOGLOBIN 18.2 g/dl (14.0-18.0); IMMATURE GRANULOCYTE # 0.1 10^3/uL (0-0); IMMATURE GRANULOCYTE % 0.5 % (0-0); LYMPH # 2.8 10^3/uL (1.5-4.5); LYMPH % 21.4 % (24.0-44.0); MEAN CORPUSCULAR HEMOGLOBIN 27.1 pg (27.0-33.0); MEAN CORPUSCULAR HGB CONC 32.9 g/dl (32.0-36.5); MEAN CORPUSCULAR VOLUME 82.4 fl (80.0-96.0); MONO # 1.2 10^3/uL (0.0-0.8); MONO % 9.3 % (0.0-5.0); NEUTROPHILS # 8.5 10^3/uL (1.8-7.7); PLATELET COUNT, AUTOMATED 304 10^3/uL (150-450); RED BLOOD COUNT 6.71 10^6/uL (4.30-6.10); RED CELL DISTRIBUTION WIDTH 14.6 % (11.5-14.5); WHITE BLOOD COUNT 13.1 10^3/uL (4.0-10.0)
[2017-10-21 16:15] LABS: SUSPECT SAMPLE POS FLAG
[2017-10-21 18:14] LABS: TOTAL 25(OH) VITAMIN D 38.7 NG/ML (30.0-100.0)
[2017-10-21 18:20] LABS: ESTIMATED AVERAGE GLUCOSE 183 MG/DL (60-110)
[2017-10-21 18:38] LABS: ALBUMIN/GLOBULIN RATIO 1.08 (1.00-1.93); ALKALINE PHOSPHATASE 96 U/L (45-117); ALT/SGPT 29 U/L (12-78); ANION GAP 7 MEQ/L (8-16); AST/SGOT 16 U/L (7-37); BILIRUBIN,TOTAL 0.6 MG/DL (0.2-1.0); BLOOD UREA NITROGEN 29 MG/DL (7-18); CALCIUM LEVEL 9.6 MG/DL (8.8-10.2); CARBON DIOXIDE LEVEL 31 MEQ/L (21-32); CHLORIDE LEVEL 103 MEQ/L (98-107); CHOLESTEROL LEVEL 178 MG/DL (<200); CHOLESTEROL RISK RATIO 4.944 (<5); CREATININE FOR GFR 1.85 MG/DL (0.70-1.30); GLOMERULAR FILTRATION RATE 38.1 (>42); GLUCOSE, FASTING 102 MG/DL (83-110); HDL CHOLESTEROL 36 MG/DL (>40); LDL CHOLESTEROL 92.6 MG/DL (<100); NON-HDL-C 142 MG/DL; POTASSIUM SERUM 3.8 MEQ/L (3.5-5.1); SODIUM LEVEL 141 MEQ/L (136-145); TOTAL PROTEIN 7.7 GM/DL (6.4-8.2); TRIGLYCERIDES LEVEL 247 MG/DL (<150)
[2017-10-26 14:11] LABS: PROTEIN C FUNCTIONAL ACTIVITY 129 % (73-180)
[2017-10-26 14:11] LABS: F8 ACTIVITY FOR F8 PANEL 136 % (57-163); F8 ACTIVITY vWB FOR F8 PANEL 120 % (50-200); F8 ANTIGEN FOR F8 PANEL 202 % (50-200); INTERPRETATION: Note (.); PROTEIN S FUNCTIONAL ACTIVITY 100 % (63-140)
== END ==
LOC: M LAB 15:23
DX: G45.9 Transient cerebral ischemic attack, unspecified (principal); E11.9 Type 2 diabetes mellitus without complications
CPT/HCPCS: 84443

== ENCOUNTER → 2017-12-28 | Outpatient (CLI) | payer MEDICARE ==
[2017-12-28 11:46] LABS: BASO # 0.1 10^3/uL (0.0-0.2); BASO % 1.1 % (0.0-1.0); EOS # 0.3 10^3/uL (0.0-0.50); EOS % 2.7 % (0.0-3.0); HEMATOCRIT 55.2 % (42.0-52.0); HEMOGLOBIN 18.4 g/dl (14.0-18.0); IMMATURE GRANULOCYTE % 0.5 % (0-3.0); LYMPH # 2.3 10^3/uL (1.5-4.5); LYMPH % 22.2 % (24.0-44.0); MEAN CORPUSCULAR HEMOGLOBIN 27.4 pg (27.0-33.0); MEAN CORPUSCULAR HGB CONC 33.3 g/dl (32.0-36.5); MEAN CORPUSCULAR VOLUME 82.3 fl (80.0-96.0); MONO % 9.7 % (0.0-5.0); NEUTROPHILS # 6.7 10^3/uL (1.8-7.7); NEUTROPHILS % 63.8 % (36.0-66.0); PLATELET COUNT, AUTOMATED 255 10^3/uL (150-450); RED BLOOD COUNT 6.71 10^6/uL (4.30-6.10); RED CELL DISTRIBUTION WIDTH 14.6 % (11.5-14.5); WHITE BLOOD COUNT 10.6 10^3/uL (4.0-10.0)
[2017-12-28 11:47] LABS: ADD MANUAL DIFFER NO; DIFF SLIDE NUMBER 203; SUSPECT SAMPLE POS FLAG
[2017-12-28 12:25] LABS: ALBUMIN 3.7 GM/DL (3.2-5.2); ALBUMIN/GLOBULIN RATIO 0.93 (1.00-1.93); ALKALINE PHOSPHATASE 79 U/L (45-117); ALT/SGPT 31 U/L (12-78); ANION GAP 10 MEQ/L (8-16); AST/SGOT 18 U/L (7-37); BILIRUBIN,TOTAL 0.7 MG/DL (0.2-1.0); BLOOD UREA NITROGEN 45 MG/DL (7-18); CALCIUM LEVEL 9.5 MG/DL (8.8-10.2); CARBON DIOXIDE LEVEL 30 MEQ/L (21-32); CHLORIDE LEVEL 104 MEQ/L (98-107); CREATININE FOR GFR 2.03 MG/DL (0.70-1.30); FREE T4 1.01 NG/DL (0.76-1.46); GLOMERULAR FILTRATION RATE 34.3 (>42); GLUCOSE, FASTING 122 MG/DL (70-100); POTASSIUM SERUM 4.2 MEQ/L (3.5-5.1); SODIUM LEVEL 144 MEQ/L (136-145); TOTAL PROTEIN 7.7 GM/DL (6.4-8.2)
[2017-12-28 12:42] LABS: ESTIMATED AVERAGE GLUCOSE 192 MG/DL (60-110); HEMOGLOBIN A1c 8.3 %
== END ==
LOC: M ADAMS 09:48
DX: N18.9 Chronic kidney disease, unspecified (principal); E11.69 Type 2 diabetes mellitus with other specified complication; E66.9 Obesity, unspecified
CPT/HCPCS: 84443

== ENCOUNTER → 2018-03-15 | Outpatient (REF) | payer MEDICARE ==
[2018-03-15 14:09] LABS: ESTIMATED AVERAGE GLUCOSE 180 MG/DL (60-110); HEMOGLOBIN A1c 7.9 %
== END ==
LOC: M LABDRWAD 09:20
DX: E11.69 Type 2 diabetes mellitus with other specified complication (principal)
CPT/HCPCS: 83036

== ENCOUNTER → 2018-08-11 | Outpatient (REF) | payer MEDICARE ==
[2018-08-11 13:55] LABS: ESTIMATED AVERAGE GLUCOSE 148 MG/DL (60-110); HEMOGLOBIN A1c 6.8 %
== END ==
LOC: M SFHCADAM 09:05
DX: E11.69 Type 2 diabetes mellitus with other specified complication (principal)
CPT/HCPCS: 83036

== ENCOUNTER → 2018-10-06 | Outpatient (CLI) | payer MEDICARE ==
[~2018-10-06] MED LIST changes: -AMLO5TAB2 PO; +AMLO5TAB6 PO; -DRIS50002 PO; +DRIS50003 PO; +FLOM0.4C39 PO; -FLOM5CAP PO; -LEVA1TAB PO; +LEVA250T13 PO; +MILK120011 PO; -MILKSUS PO; +SPIR-10 PO; -SPIR25TA2 PO
--- NOTE | 2018-10-06 13:14 | REP ---
BILATERAL LOWER EXTREMITY DUPLEX DOPPLER VENOUS ULTRASOUND WITH EVALUATION FOR VENOUS REFLUX: Real-time compression and duplex Doppler interrogation of the bilateral lower extremity deep venous systems is performed. Bilaterally, common femoral, superficial femoral and popliteal veins are full compressible with transducer pressure and demonstrate normal spontaneous and phasic flow without evidence of deep venous thrombosis. Evaluation for venous reflux is performed bilaterally. There is no evidence of reflux in any of the deep veins of the right lower extremity. There is no reflux in any portion of the right greater saphenous vein which measures 5 mm in diameter throughout its course from the saphenofemoral junction to the knee. There is no reflux in the lesser saphenous vein which measures 3 mm. There is also no evidence of reflux in any of the deep veins of the left lower extremity. There is no reflux in any portion of the left greater saphenous vein which measures 4 mm in diameter and no reflux in the lesser saphenous vein which measures 3 mm. IMPRESSION: No evidence of venous reflux bilaterally. Electronically Signed by Carlos Alves MD 10/06/2018 01:37 P
== END ==
LOC: M RAD 10:23
PROVIDERS: ATTEND Family Medicine
DX: R60.9 Edema, unspecified (principal)

== ENCOUNTER 2018-11-11 13:21 | Inpatient (IN) | payer MEDICARE ==
[2018-11-11] VITALS (14 sets, daily range): BP systolic 116–177; BP diastolic 57–110
[~2018-11-11] VITALS: Ht 177.8 cm; Wt 118.6 kg
[2018-11-11 14:09] LABS: BASO # 0.1 10^3/uL (0.0-0.2); BASO % 0.3 % (0.0-1.0); EOS # 0.2 10^3/uL (0.0-0.50); EOS % 0.9 % (0.0-3.0); HEMATOCRIT 45.9 % (42.0-52.0); HEMOGLOBIN 15.1 g/dl (13.5-17.5); LYMPH # 1.6 10^3/uL (1.5-4.5); LYMPH % 9.9 % (24.0-44.0); MEAN CORPUSCULAR HEMOGLOBIN 27.3 pg (27.0-33.0); MEAN CORPUSCULAR HGB CONC 32.9 g/dl (32.0-36.5); MEAN CORPUSCULAR VOLUME 82.9 fl (80.0-96.0); MONO # 1.9 10^3/uL (0.0-0.8); MONO % 11.3 % (0.0-5.0); NEUTROPHILS # 12.6 10^3/uL (1.8-7.7); NEUTROPHILS % 76.8 % (36.0-66.0); PLATELET COUNT, AUTOMATED 262 10^3/uL (150-450); RED BLOOD COUNT 5.54 10^6/uL (4.30-6.10); WHITE BLOOD COUNT 16.4 10^3/uL (4.0-10.0)
[2018-11-11 14:20] LABS: INR 1.07
--- NOTE | 2018-11-11 14:24 | REP ---
Clinical: Trauma. Comparison: 05/11/2017 . Findings: A ventriculoperitoneal shunt is identified via the right frontal approach extending into the lateral ventricle. The bilateral ventricles appear dilated but symmetric and stable compared to prior examination. Age-related atrophy and microvascular ischemic changes are appreciated. Alves-white differentiation is maintained. There is no evidence for acute intracranial hemorrhage, mass/mass effect, pathology or infarction. No extra-axial fluid collection. Calvarium is without acute injury. Sinuses are clear/stable with right maxillary mucocele identified. Impression: No acute intracranial hemorrhage, infarction, or mass/mass effect. Ventriculoperitoneal shunt and bilateral ventricles remain stable. Electronically Signed by Calvin Catherine MD 11/11/2018 02:16 P
--- NOTE | 2018-11-11 14:25 | REP ---
Clinical: Chest pain . Comparison: 11/03/2015 . Findings: The mediastinum and cardiac silhouette are stable and within normal limits for portable technique. The lung ramirez are clear without acute consolidation, effusion, or pneumothorax. Skeletal structures are intact. Impression: No acute cardiopulmonary process appreciated. Electronically Signed by Calvin Catherine MD 11/11/2018 02:17 P
[2018-11-11 14:40] LABS: ALBUMIN 3.4 GM/DL (3.2-5.2); BILIRUBIN,DIRECT 0.2 MG/DL (0.0-0.2); BILIRUBIN,TOTAL 0.6 MG/DL (0.2-1.0); CALCIUM LEVEL 8.2 MG/DL (8.8-10.2); CREATININE FOR GFR 6.58 MG/DL (0.70-1.30); FREE T4 1.11 NG/DL (0.76-1.46); GLOMERULAR FILTRATION RATE 8.8 (>42); MAGNESIUM LEVEL 3.1 MG/DL (1.8-2.4); MB/CK RELATIVE INDEX 5.36 (< OR =4); POTASSIUM SERUM 5.6 MEQ/L (3.5-5.1); THYROID STIMULATING HORMONE 2.46 uIU/ML (0.358-3.740); TROPONIN I 0.06 NG/ML (< 0.10)
[2018-11-11] MEDS ORDERED: ADACEL/BOOSTRIX VACCINE (DIPHTH/PERTUSS/ACELL/TETANUS)0.5ML SYR (90715) IM ONE (14:45)
[2018-11-11] MEDS ORDERED: CALCIUM CHLORIDE 10% 1 GM/10 ML SYR IV STA (14:50)
[2018-11-11] MEDS ORDERED: SODIUM BICARBONATE 8.4% INJ 50 ML SYRINGE IV STA (14:55)
[2018-11-11] MEDS ORDERED: DEXTROSE 50% 50 ML SYRINGE IV STA (14:55)
[2018-11-11] MEDS ORDERED: NS 1,000 ML IV ONE (15:00)
[2018-11-11] MEDS ORDERED: HumuLIN R (REGULAR) INSULIN (NovoLIN R) **100U/ML** PER UNIT IV ONE (15:00)
[2018-11-11 15:15] LABS: PHOSPHORUS LEVEL 8.8 MG/DL (2.5-4.9)
[2018-11-11] MEDS ORDERED: AMLO10TA5 PO (15:24)
[2018-11-11] MEDS ORDERED: ASPI1TAB PO (15:24)
[2018-11-11] MEDS ORDERED: ATOR40TA75 PO (15:24)
[2018-11-11 15:30] LABS: OSMOLALITY URINE 371 MOSM/KG (500-800)
[2018-11-11] MEDS ORDERED: LISI10TA4 PO (15:31)
[2018-11-11] MEDS ORDERED: AMIL25TA PO (15:31)
[2018-11-11] MEDS ORDERED: POTA10TA67 PO (15:31)
[2018-11-11 15:56] LABS: POTASSIUM RANDOM URINE 37.3 MEQ/L
--- NOTE | 2018-11-11 16:07 | CR ---
DATE OF CONSULTATION: 11/11/2018 REFERRING PHYSICIAN: Dr. Shayy Peralta REASON FOR CONSULTATION: Complete heart block. HISTORY OF PRESENT ILLNESS: Mr. Mj Wright Jr., is a pleasant 78-year-old man with hypercholesterolemia, obesity, type 2 diabetes, dementia, and systemic hypertension who was brought to the emergency room today because of recurrent brief episodes of unresponsiveness and some recent falls. He was found to be hyperkalemic and to have sinus rhythm with complete heart block with a right bundle branch block type morphology. It also showed hyperacute T waves consistent with hyperkalemia. It also shows a left anterior fascicular block. Patient was a poor historian because of dementia. He reports dyspnea with low levels of activity. No chest pain or chest discomfort. He is aware that he has had recent falls. He is not sure if he has actually blacked out or not. No palpitations. No claudication. ADVERSE DRUG REACTIONS: Bee venom, PENICILLINS. MEDICATIONS PRIOR TO ADMISSION: - amlodipine 10 mg daily - carvedilol 6.25 mg twice a day - chlorthalidone 25 mg daily - Jardiance 25 mg daily - tamsulosin 0.4 mg times two tablets daily - finasteride 5 mg at bedtime - amiloride one tablet daily - donepezil 10 mg at bedtime - memantine 10 mg times two daily - atorvastatin 40 mg at bedtime - potassium chloride sprinkle two tablets daily - Lantus SoloStar insulin 60-80 units daily - aspirin 325 mg daily OTHER PAST MEDICAL AND SURGICAL HISTORY: 1. Systemic hypertension. 2. Chronic kidney disease (followed by Dr. Madison Peterson) 3. Dementia. 4. Polycythemia. 5. Type 2 diabetes. 6. History of transient ischemic attacks (TIA) May 2017. 7. Normal pressure hydrocephalus status post shunt. 8. Peripheral edema. PAST SURGICAL HISTORY: 1. Ventriculoperitoneal (FLATBED OWNER OPERATOR) shunt for hydrocephalus. 2. Bilateral cataract surgeries (June 2017 and July 2017). SOCIAL HISTORY: Prior smoker; quit in 1975. No alcohol. 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 REVIEW OF SYSTEMS: As per history of present illness (HPI) above. Difficult to acquire review of systems due to dementia (patient is a poor historian). PHYSICAL EXAMINATION: A pleasant, morbidly obese man who is not in any respiratory or psychologic distress. Blood pressure (BP) 141/57 supine, pulse 40 (complete heart block), respiratory rate 20, oxygen saturation 98% on the bedside monitor. No conjunctival pallor, scleral icterus, or xanthomas. Edentulous. Oral mucosa is moist and without pallor or cyanosis. Jugular venous pulsations were at 3 cm. Trachea midline. No palpable thyroid. No clubbing, nailbed stenosis, or splinter hemorrhages. No skin lesions, skin pallor, or icterus. Oriented to person and place but not to time. Mood and affect were normal. Curvature of spine normal. Gait not appropriate to test at this time. Gross motor strength and tone appeared normal. No muscle atrophy, fasciculations, or tremors. Respiratory expansion effort was good. No crackles or wheezes. No palpable apex beat. No parasternal lifts, heaves, thrills, or palpable heart sounds. First heart sound was variable intensity. Normal S2. No S3 or S4 or murmurs. No pericardial friction rubs. Carotids were normal in volume and contour and without bruits. No palpable abdominal aorta but difficult to palpate due to abdominal obesity. No abdominal bruits. Femoral pulses difficult to palpable due to obesity. Pedal pulses normal. Bilateral pitting edema of 5 mm was present at mid and distal tibial levels bilaterally. No varicose veins. Abdomen was obese, soft, nontender with normal bowel sounds. No hepatosplenomegaly or other organomegaly. Liver span difficult to assess due to abdominal obesity. Stool for occult blood not presently indicated. INVESTIGATIONS: Electrocardiogram 11/11/2018 at 1447 hours shows underling sinus rhythm with complete heart block and right bundle branch block with left anterior fascicular block and tall T waves (consider hyperkalemia). QRS duration 149 msec. I have independently visualized the patient's portable anterior-posterior (AP) sitting chest x-ray acquired 11/11/2018. It shows cardiomegaly despite the portable technique. Mild pulmonary vascular redistribution. Some fluid in the right minor fissure. No apparent pleural effusions. No alveolar edema. Suboptimal inspiration. Laboratory work 11/11/2018 was reviewed. WBC 16.4, hemoglobin 15.1, hematocrit 45.9, platelets 262. PT/INR 1.07. Sodium 128, potassium 5.6, chloride 98, CO2 of 12, anion gap 18, BUN 144, creatinine 6.57, estimated GFR 8.8, glucose 99, calcium 8.2, phosphorus pending, magnesium 3.1. Bilirubin normal, direct bilirubin normal, AST normal, ALT normal, alkaline phosphatase normal, CPK 267, CPK-MB 14.0, percent CPK-MB 5.36, troponin I 0.06, NT-proBNP 9834, total protein 7.0, albumin 3.4. Lipase normal. TSH 2.460, free T4 of 1.11. ASSESSMENT AND RECOMMENDATIONS: 1. Complete heart block. This patient has a few reversible conditions that may resolve the complete heart block, but only time will tell once these have been reversed. The reversible factors that may contribute to this patient's complete heart block include carvedilol, Aricept, and hyperkalemia. The hyperkalemia is in the process of being corrected. He does have right bundle branch block with left anterior fascicular block. I suspect he may well require a permanent pacemaker, but I think it is quite reasonable to correct the situation with the acute renal failure and hyperkalemia and to stop the Aricept and beta barbi and continue to observe him on telemetry as long as he remains hemodynamically stable. In case he does need a pacemaker, I will also recommend to hold the Plavix for now. 2. Right bundle branch block with left anterior fascicular block. Discussion as per complete heart block above. 3. Systemic hypertension. As mentioned above, I recommend holding the beta barbi because of the complete heart block. Decision regarding hemodialysis will be made by nephrology. He does have events of total body sodium overload. Recommend holding amlodipine for now. 4. Hypercholesterolemia. Recommend a low-fat, low-cholesterol diet and continue his usual dose of statin therapy. 5. Heart failure, unspecified. Patient appears to be fluid overloaded. He has vascular congestion on his chest x-ray. I will leave it to nephrology to decide on diuretics versus hemodialysis. I will order an echocardiogram Doppler.
[2018-11-11] MEDS ORDERED: SODIUM BICARBONATE 100 MEQ in D5W 1,000 ML IV SCH (16:30)
[2018-11-11] MEDS ORDERED: ISOVUE-300 61% 50ML VIAL (Q9967) As Ordered ONE (16:34)
[2018-11-11] MEDS ORDERED: MUPIROCIN 2% OINT 22 GM TUBE As Ordered ONE (16:34)
[2018-11-11] MEDS ORDERED: LIDOCAINE 1% SDV INJ 30 ML VIAL As Ordered ONE (16:34)
[2018-11-11] MEDS ORDERED: VANCOMYCIN 1000 MG/20 ML VIAL (J3370) As Ordered ONE ×2 (16:35→16:57)
[2018-11-11] MEDS ORDERED: NS 1,000 ML IV SCH (16:36)
[2018-11-11] MEDS ORDERED: ONDANSETRON 4MG/2ML VIAL (J2405) As Ordered ONE (16:38)
[2018-11-11] MEDS ORDERED: dexameTHASONE 4 MG/ML 1ML VIAL (J1100) As Ordered ONE (16:38)
[2018-11-11] MEDS ORDERED: LIDOCAINE 2% INJ 100 MG/5 ML SDV (FOR ANES.) As Ordered ONE (16:38)
[2018-11-11] MEDS ORDERED: MIDAZOLAM INJ 2 MG/2 ML VIAL (J2250) As Ordered ONE (16:39)
[2018-11-11] MEDS ORDERED: PROPOFOL 200 MG/20 ML VIAL As Ordered ONE (16:39)
[2018-11-11] MEDS ORDERED: fentaNYL 100 MCG/2 ML INJECTION (J3010) As Ordered ONE (16:39)
--- NOTE | 2018-11-11 18:05 | HPE ---
DATE OF ADMISSION: 11/11/2018 This is a 78-year-old male with a past medical history of dementia, status-post FOOD SAFETY DIRECTOR shunt, chronic kidney disease 3A, history of diabetes, benign prostatic hypertrophy, hyperlipidemia, hypertension, GERD who presents to the emergency room after having recurrence of syncopal events over the last couple of days. The patient was found to be in 3rd degree AV block and went into asystole with approximately 6 seconds and minor seizure activity. Then he spontaneously went into first degree AV block at approximately 80 beats per minute and he is awake, alert and oriented times one. He denies any chest pain or shortness of breath. No palpitations. Dr. He our dispatcher refinery was consulted by the ER attending and he saw the patient at bedside and will be taking the patient for emergent pacemaker placement. History taken of the patient was mildly difficult because of his underlying dementia. PAST MEDICAL HISTORY: Chronic kidney disease stage 3A, diabetes, hypertension, hyperlipidemia, BPH, GERD, dementia, status-post FOOD SAFETY DIRECTOR shunt. ALLERGIES: Aspirin and penicillin. FAMILY HISTORY: Noncontributory. SOCIAL HISTORY: Patient denies tobacco, alcohol or illicit drugs. MEDICATIONS AT HOME: Amiloride 2.5 mg orally daily, amlodipine 10 mg orally daily, aspirin 81 mg orally daily, atorvastatin 40 mg orally at bedtime, Coreg 6.25 mg orally twice daily, chlorthalidone 25 mg orally daily, donepezil 10 mg orally at bedtime, Jardiance 25 mg orally daily, finasteride 5 mg orally at bedtime, and insulin glargine 46 units subcu twice a day, lisinopril 10 mg orally daily, memantine 10 mg orally twice daily, potassium chloride 10 mEq orally twice daily, tamsulosin 0.4 mg orally twice daily. REVIEW OF SYSTEMS: Negative for all 10 major systems except for what has been mentioned in the HPI. VITALS: Blood pressure 128/59, heart rate 40 and regular, respiratory rate 18, Oxygen saturation is 97% on room air. Head is atraumatic normocephalic. Neck is supple. No JVD. Lungs are clear to auscultation. S1, S2 audible. No murmurs appreciated. Abdomen soft and positive bowel sounds and no pedal edema. Neurological examination, patient is awake and oriented times one. LABS: Sodium 128, potassium 5.6, chloride 98, CO2 12, anion gap 18, BUN 144, creatinine 6.58, glucose 99, troponin 0.06, TSH 2.46, WBC 16.4, hemoglobin 15.1, hematocrit 45.9, platelets are 262,000. Urinalysis is positive for UTI. IMPRESSION: 1. Syncope. 2. Third degree AV block. 3. Acute kidney injury. 4. Hyponatremia. 5. UTI. PLAN: Patient is to be admitted to the intensive care unit, prior to the intensive care unit he is being taken to the operating room for pacemaker placement by Dr. He. I am going to stop his Coreg for now and we will defer this to cardiology discretion when to either restart or change it after the pacemaker is placed. As far as his KOBE is concerned, it could be multifactorial. Patient is on multiple diuretics and because of his dementia it is difficult to ascertain if he has been taking adequate by mouth intake. He appears dry. We will continue IV fluid NS at 100 an hour and I am holding his Amiloride, chlorthalidone, and lisinopril as well as his potassium chloride. Patient's hyponatremia is likely hypovolemic. We will continue IV normal saline at 100 an hour. We will sodium trends and I will start the patient on IV Rocephin for his UTI and we will follow culture and sensitivity. We will continue following his care in the intensive care unit. TOTAL CRITICAL CARE TIME: 45 minutes.
--- NOTE | 2018-11-11 19:02 | REP ---
Clinical: Pacemaker placement. Technique: Intraoperative fluoroscopic imaging. Findings: Seven intraoperative fluoroscopic images demonstrate satisfactory dual lead pacemaker placement with leads overlying the right atrium and right ventricle. Total fluoroscopic time 7 minutes 15 seconds. Impression: Status post dual lead pacemaker in satisfactory position. Electronically Signed by Calvin Catherine MD 11/11/2018 06:53 P
--- NOTE | 2018-11-11 19:47 | REP ---
Clinical: Status post pacemaker. Comparison: 11/11/2018 at 01:45 p.m. Findings: Mediastinum and cardiac silhouette are stable. Pacemaker identified in satisfactory position. Pulmonary vascular congestion and interstitial edema cannot be excluded. No obvious effusion. No pneumothorax. Skeletal structures are intact. The ventriculoperitoneal shunt along the right side of the neck and chest identified. Impression: Pulmonary vascular congestion cannot be excluded. No effusion. No pneumothorax. Electronically Signed by Calvin Catherine MD 11/11/2018 07:39 P
[2018-11-11] MEDS ORDERED: cefTRIAXone SOD 1 GM in D5W MINI-BAG PLUS 50 ML IV SCH (20:00)
[2018-11-11] MEDS ORDERED: ACETAMINOPHEN TAB 650MG DOSE (2X325MG) PO PRN (20:15)
[2018-11-11] MEDS ORDERED: fentaNYL 100 MCG/2 ML INJECTION (J3010) IV PRN (20:15)
[2018-11-11] MEDS ORDERED: HYDROMORPHONE HCL 0.5 MG/ 0.5 ML SYRINGE (J1170 PER 1) IV PRN (20:15)
[2018-11-11] MEDS ORDERED: ONDANSETRON 4MG/2ML VIAL (J2405) IV PRN (20:15)
[2018-11-11 20:19] LABS: VENOUS BASE EXCESS -10.1 (-2.0-2.0); VENOUS HCO3 15.6 MEQ/L (23.0-27.0); VENOUS O2 SATURATION 99.1 % (60.0-80.0); VENOUS PARTIAL PRESSURE CO2 34.6 mmHg (38.0-50.0); VENOUS PARTIAL PRESSURE O2 182.1 mmHg (30.0-50.0); VENOUS PH 7.273 UNITS (7.330-7.430); VENOUS STANDARD HCO3 16.6 MEQ/L; VENOUS TOTAL CO2 16.7 MEQ/L (24.0-28.0)
--- NOTE | 2018-11-11 20:19 | RO ---
DATE OF PROCEDURE: 11/11/2018 PREOPERATIVE DIAGNOSIS: Complete heart block. POSTOPERATIVE DIAGNOSIS: Complete heart block. FINDINGS: Complete heart block. PROCEDURE PERFORMED: Implantation of a [employer] medical dual chamber pacemaker. SURGEON: Henry eH MD PRODUCTION LINE OPERATOR: None. ANESTHESIA: Lidocaine 1% local/monitored anesthetic care. SPECIMENS: None. ESTIMATED BLOOD LOSS: Less than 10 mL. No blood products replaced. No drains. No complications. PROCEDURE DESCRIPTION: Patient was prepped and draped over the left pectoral region. 3M Ioban film was applied. Lidocaine 1% was used for local anesthetic. I used a micropuncture needle by percutaneous technique over the left pectoral region aiming below the clavicle and towards the suprasternal notch and was successful at getting venous access. This was then guidewire exchanged for a guidewire that came with one of the 8-Montserratian sheaths. Next, the incision approximately 2.5-3 inches in length was made 1 cm below the skin entrance of the guidewire using a PEAK PlasmaBlade. The PEAK PlasmaBlade was used to get through the fatty layer and through the fibrous Gillian's fascia. The pacemaker pocket was then formed in a caudal direction using blunt dissection using two fingers to separate the prepectoral fascia from the pectoral fascia. Next, the guidewire was pulled through the skin into the incision site. Next, several attempts were made to get in to the left subclavian vein using micropuncture needle placed at the level of the pectoral muscle and more lateral to the guidewire entry site of the first guidewire at the level of the pectoral muscle. This was difficult and ultimately unsuccessful even with a single contrast injection (20 mL of a mixture of 3 parts contrast to 1 part normal saline). The subclavian venogram was of very poor quality and was not helpful. I then decided to switch the technique to a shared guidewire technique. The second guidewire was placed down the 8-Montserratian sheath along with the first guidewire. The guidewires were obtained and the 8-Montserratian sheath was removed. Next, the introducer was placed back in to the 8-Montserratian sheath then placed over one of the guidewires and advanced into the left subclavian vein. Next, the ventricular lead was placed into the 8-Montserratian sheath and advanced into the right ventricle near the apex and was secured with a total of 11 turns. This position was found to be electrically and anatomically satisfactory and no diaphragm stimulation occurred with 10 volts high output pacing. Next, another 8-Montserratian sheath with introducer was placed over the other guidewire and advanced into the vein. This was used for vein access for the right atrial lead. The atrial lead was placed in to right atria appendage where it was secured with a total of 10 turns. This position was found to be electrically and anatomically satisfactory. No diaphragm stimulation could be palpated on either side with 10 volts of high output pacing. Both the atrial and ventricular leads were secured to the pectoral muscle using the supply tie-down sleeve using two individual sutures consisting of #0 Ethibond to secure the pectoral muscle for each of the tie-down sleeves. Another #0 Ethibond suture was placed to the pectoral muscle to serve as the tie-down for the pacemaker pulse generator. I took a mean size Tyrx envelope and cut it into four pieces which were placed in to the pacemaker pocket. The terminal pins of the ventricular and the atrial leads were placed into their respective ports in the header of the pacemaker pulse generator and each one was secured by tightening the setscrews with the hex screwdriver. The pacemaker pulse generator was place into the pacemaker pocket along with the extra lead material which was coiled beneath it. Pacemaker on top, excess lead material below. The pacemaker pulse generator was then secured to the pectoral muscle with the previously placed #0 Ethibond suture. The deep layer was closed using continuous suture consisting of #2-0 Vicryl. A few additional #3-0 Vicryls were used to approximate the more superficial layer. The skin was closed using marco antonio. Patient tolerated the procedure well without any immediate complications. The pacemaker pulse generator implanted was a [employer] [facility], model #SP2253 with serial #[id number]. The right ventricle lead implanted was a [employer], model #YTK0600C/58 serial #[id number]. Final testing in the operating room for the right ventricle lead showed a capture threshold of 0.6 volts at 0.4 ms with R wave amplitude of 9.7 mV and lead impedance of 638 ohms with these measurements in bipolar configuration. The right atrial lead implanted was a [employer], model #UHN4927B/52 with serial #[id number]. Final testing in bipolar configuration in the operating room for the right atrial lead showed capture threshold of 0.8 volts at 0.4 ms with P wave amplitude of 3.58 mV and lead impedance of 474 ohms.
[2018-11-11 20:50] LABS: ALBUMIN 3.2 GM/DL (3.2-5.2); CALCIUM LEVEL 8.1 MG/DL (8.8-10.2); CREATININE FOR GFR 5.92 MG/DL (0.70-1.30); GLOMERULAR FILTRATION RATE 9.9 (>42); POTASSIUM SERUM 4.8 MEQ/L (3.5-5.1)
[2018-11-11] MEDS ORDERED: DONEPEZIL 5 MG TAB PO SCH (21:00)
[2018-11-11] MEDS ORDERED: GLUCOSE 4 GM CHEW TABLET PO PRN (21:15)
[2018-11-11] MEDS ORDERED: DEXTROSE 50% 50 ML SYRINGE IV PRN (21:15)
[2018-11-11] MEDS ORDERED: GLUCAGON FOR INJ 1 MG VIAL (J1610) SC PRN (21:15)
[2018-11-11] MEDS: TAMSULOSIN 0.4 MG CAP PO SCH (21:22)
[2018-11-11] MEDS: FINASTERIDE 5 MG TAB PO SCH (21:22)
[2018-11-11] MEDS: ATORVASTATIN 20 MG TAB PO SCH (21:22)
[2018-11-11] MEDS: HumaLOG INSULIN (NovoLOG) PER UNIT SC SCH (21:45)
[2018-11-11] MEDS ORDERED: SLF 3 ML SYR IV PRN (22:00)
--- NOTE | 2018-11-11 22:00 | ECHO ---
DATE OF PROCEDURE: 11/11/2018 REFERRING PHYSICIAN: Henry He MD INDICATION: Heart failure, unspecified. HEIGHT: 70 inches WEIGHT: 128 kg 2D MEASUREMENTS: Aortic annulus: 2.0 cm Left atrium: 5.1 cm Aortic root: 3.1 cm Ventricular septum: 1.20 cm Posterior wall: 1.18 cm Left ventricle diastole: 5.4 cm Inferior vena cava: 2.3 cm (more than 50% respiratory variation). DOPPLER MEASUREMENTS: Aortic valve velocity: 231 cm/s LVOT velocity: 161 cm/s LVOT VTI: 31.4 cm Trace mitral regurgitation. Mitral E velocity: 168 cm/s Mitral A velocity: 176 cm/s Very mild tricuspid regurgitation. Estimated right ventricle systolic pressure: 35-40 mmHg assuming a right atrial pressure of 5-10 mmHg. MITRAL ANNULAR TISSUE DOPPLER: E prime septal: 6.5 cm/s E prime lateral: 6.2 cm/s DESCRIPTION: Rhythm was sinus with first degree AV block and right bundle branch block morphology. This was a moderately technically difficult echocardiogram. This was a 2D, M-mode, color flow Doppler and pulse wave Doppler examination that included mitral annular tissue Doppler. CONCLUSIONS: 1. Left ventricle wall thickness and aorta upper limits of normal. No regional wall motion abnormalities of the left ventricle. Hyperdynamic left ventricle (LV) systolic function. Left ventricular ejection fraction (LVEF) 70-75% by visual estimate. Grade 1 LV diastolic dysfunction (impaired relaxation filling pattern). 2. Moderate left atrial dilatation. 3. Moderate mitral annular calcification. Trace mitral regurgitation. No mitral stenosis. 4. Mild aortic valve sclerosis of a three-cuspid aortic valve. No aortic regurgitation. 5. No pericardial effusion. 6. Suggestive of mild elevation of estimated right ventricle systolic pressure (35-40 mmHg). Normal right ventricle size and systolic function. 7. Moderately technically difficult echocardiogram.
[2018-11-11] MEDS: SLF 3 ML SYR IV SCH (22:28)
[2018-11-11] MEDS ORDERED: ACETAMINOPH W/CODEINE #3 TAB UD PO PRN (22:30)
[2018-11-12] VITALS (19 sets, daily range): BP systolic 106–164; BP diastolic 53–77
[2018-11-12 04:58] LABS: CALCIUM LEVEL 8.7 MG/DL (8.8-10.2); CREATININE FOR GFR 5.14 MG/DL (0.70-1.30); GLOMERULAR FILTRATION RATE 11.7 (>42); POTASSIUM SERUM 5.6 MEQ/L (3.5-5.1)
[2018-11-12 05:24] LABS: BASO % 0.2 % (0.0-1.0); EOS % 0.2 % (0.0-3.0); HEMATOCRIT 47.9 % (42.0-52.0); LYMPH # 0.5 10^3/uL (1.5-4.5); LYMPH % 4.4 % (24.0-44.0); MEAN CORPUSCULAR HEMOGLOBIN 27.3 pg (27.0-33.0); MEAN CORPUSCULAR HGB CONC 33.4 g/dl (32.0-36.5); MEAN CORPUSCULAR VOLUME 81.7 fl (80.0-96.0); MONO # 0.4 10^3/uL (0.0-0.8); MONO % 2.9 % (0.0-5.0); NEUTROPHILS # 11.4 10^3/uL (1.8-7.7); NEUTROPHILS % 92.1 % (36.0-66.0); PLATELET COUNT, AUTOMATED 268 10^3/uL (150-450); RED BLOOD COUNT 5.86 10^6/uL (4.30-6.10); WHITE BLOOD COUNT 12.4 10^3/uL (4.0-10.0)
[2018-11-12] MEDS: SLF 3 ML SYR IV SCH ×3 (06:08→21:09)
[2018-11-12] MEDS: HumaLOG INSULIN (NovoLOG) PER UNIT SC SCH ×4 (07:30→21:00)
--- NOTE | 2018-11-12 08:43 | ECGEPIP ---
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
[2018-11-12] MEDS: ASPIRIN 81 MG ENTERIC TAB PO SCH (09:00)
[2018-11-12] MEDS: amLODIPine 10 MG TAB PO SCH (09:05)
[2018-11-12] MEDS: TAMSULOSIN 0.4 MG CAP PO SCH ×2 (09:05→21:04)
--- NOTE | 2018-11-12 09:06 | REP ---
Clinical: Acute renal failure. Technique: Axial noncontrast images from the lung bases to the pubic symphysis coronal and sagittal re-formations. Comparison: 11/11/2015. Findings: Kidneys demonstrate stable moderate hydroureteronephrosis without evidence for nephroureterolithiasis or obstructing ureteral calculi. Stable bilateral hypodensities consistent with cysts measuring 2.4 cm on the left and 1.8 cm on the right. Mild chronic perinephric stranding is appreciated. Graf catheter identified in collapsed bladder. The prostate gland is incompletely evaluated. Liver, spleen, pancreas, gallbladder, and bilateral adrenal glands are normal / stable for noncontrast evaluation. The enteric system is without obstruction or acute inflammatory process. Sigmoid diverticula noted without acute diverticulitis. Pelvis demonstrates Graf catheter in collapsed bladder. Prostate gland is grossly unremarkable. No ascites. No free air. No adenopathy. Abdominal aorta without aneurysm. Musculoskeletal structures demonstrate degenerative changes without focal osseous abnormality. Lung bases demonstrate minimal posterior basilar dependent changes. Impression: 1. Chronic moderate hydronephrosis noted bilaterally without nephroureterolithiasis or obstructing calculus. Stable bilateral renal cysts. 2. Sigmoid diverticula without acute diverticulitis. 3. No further acute abdominopelvic pathology appreciated. Electronically Signed by Calvin Catherine MD 11/12/2018 08:57 A
--- NOTE | 2018-11-12 09:46 | IPNPDOC ---
Subjective Date Seen The patient was seen on 11/12/18. Subjective Chief Complaint/HPI Patient was examined at bedside. He stated that he is feeling much better compared to yesterday. Stated that nothing is bothering him. Denies any chest pain, palpitation, SOB, nausea, vomiting, lightheadedness, dizziness, fever, chills, or weakness. He reported that he has chronic urinary incontinence and wears a pull-up at home. Reported that no dysuria or frequency noted at home. General: Denies: Chills Constitutional: Denies: Chills, Fever Pulmonary: Denies: Dyspnea Cardiovascular: Denies: Chest Pain, Palpitations Gastrointestinal: Denies: Nausea, Vomiting, Abdominal Pain, Diarrhea, Constipation Genitourinary: Reports: Incontinence; Denies: Dysuria Psych: Reports: Mood Normal Objective Physical Examination General Exam: Positive: Alert, Cooperative, No Acute Distress Eye Exam: Positive: Conjunctiva & lids normal, EOMI; Negative: Sclera icteric ENT Exam: Positive: Atraumatic, Mucous membr. moist/pink Neck Exam: Positive: Supple; Negative: JVD Chest Exam: Positive: Clear to auscultation, Normal air movement; Negative: Rales, Rhonchi, Wheezing Heart Exam: Positive: Rate Normal, Regular Rhythm, Other (Pacemaker sound aus) Abdomen Exam: Positive: Normal bowel sounds, Soft; Negative: Tenderness Extremity Exam: Negative: Edema, Swelling Skin Exam: Positive: Nl turgor and temperature, Other skin issue (b/l lower extrermity appears to be mildly dry) Neuro Exam: Positive: Normal Speech, Strength at 5/5 X4 ext, Cranial Nerves 3- 12 NL Psych Exam: Positive: Mental status NL, Mood NL, Memory Intact, Oriented x 3, Other (Memory and mental status grossly intact) Other physical findings burns catheter in place Assessment /Plan Problems (1) Third degree AV block Status: Acute Problem Specific Plan: Consult Specialist Problem Text: Third degree AV block. Asystole for 6 sec. several syncope episode as well as minor seizure episode likely 2/2 to ischemic from third degree Av block. S/p pacemaker placement. Now RRR. Pt asymptomatic. Cont to monitor pt on tele (2) Acute kidney injury superimposed on CKD Status: Acute Response to Treatment: Improving Problem Specific Plan: Monitor Clinically, Repeat Labs Problem Text: PMH of CKD. Creatinine 5.14 today with baseline creat at 2, improving. Hyponatremia resolved. Hyperkalemia at 5.6 with hyperphosphoretemia at 8.0. Pt has PMH of nonspecific urinary incontinence. Based on what patient describes, likely overflow incontinence 2/2 BPH. Cont Finasteride and Flomax. CT abd showed b/l chronic moderate hydronephrosis likely 2/2 to urinary retention. Cont burns catheter. Pt tolerating PO oral fluid well thus will not start IVF at this time as part of KOBE may be contributed to renal ischemia from AV block. Nephrology is following, and we appreciate their input. Cont to follow up renal profile. Cont I&O (3) Diabetes mellitus Status: Chronic Problem Text: PMH of DM type 2. Hold home medication Jardiance and insulin Glargine. Insulin sliding scale. Pt had few episodes of hypoglycemia with trough to the 40s. Most recent POC 90s. Hypoglycemia protocol. Consider starting D5 if pt continues to have episodes of hypoglycemia. POC as scheduled; cont to monitor pt (4) Hypertension Status: Chronic Response to Treatment: Stable Problem Text: Most recent recorded BMP 1202/80s, stable. Hold home nephrotoxic BP meds. Cont Norvasc, vital signs as scheduled (5) BPH (benign prostatic hyperplasia) Status: Chronic Problem Specific Plan: Monitor Clinically Problem Text: BPH on Tamsulosin and Finasterid. Cont to monitor pt. Urinary retention; pt stated that he has uncontrolled urination at home and wears a pull-up at home. Stated that he has not been able to urinate since admission. CT abdomen showed b/l chronic mod hydronephrosis. Cont to monitor (6) Hyperkalemia Status: Acute Problem Specific Plan: Consult Specialist, Repeat Labs Problem Text: K elevated at 5.6. Likely 2/2 to KOBE on CKD. Pt's phsphorous also elevated. Pt tolerating PO oral fluid well thus will not start IVF at this time as part of KOBE may be contributed to renal ischemia from AV block. Cont to monitor and f/u with renal profile. Nephrology is following (7) Hydrocephalus in adult Status: Chronic Response to Treatment: Stable Problem Text: PMH of hydrocephalus. Sp LEAD GENERATION SPECIALIST shunt. Stable (8) UTI (urinary tract infection) Status: Acute Problem Specific Plan: Monitor Clinically Problem Text: Pt denies dysuria or urgency when he was still able to initiate urination. Urine Cx pending. On IV Rocephin 1g. Leukocytosis w/o fever. Cont to monitor and may change abx treatment based on urine cx Plan/VTE VTE Prophylaxis Ordered?: Yes (TEDS and SCD) Plan/Urinary Catheter Urinary Catheter: Place Burns Plan Diet: Continue Current Activity: Continue Current Therapy: PT Diagnostics: Check Labs, Repeat Labs in AM, Obtain Cultures VS, I&O, 24H, Fishbone Vital Signs/I&O Vital Signs Date Time Temp Pulse Resp B/P (MAP) Pulse Ox O2 Delivery O2 Flow Rate FiO2 11/12/18 09:05 83 128/61 11/12/18 04:00 99.0 22 96 3.0 11/11/18 20:25 Nasal Cannula I&O- Last 24 Hours up to 6 AM 11/12/18 06:00 Intake Total 1100 ml Output Total 5385 ml Balance -4285 ml Laboratory Data 24H LABS Laboratory Tests 2 11/11/18 13:33: Immature Granulocyte % (Auto) 0.8, White Blood Count 16.4H, Red Blood Count 5.54, Hemoglobin 15.1, Hematocrit 45.9, Mean Corpuscular Volume 82.9, Mean Corpuscular Hemoglobin 27.3, Mean Corpuscular Hemoglobin Concent 32.9, Red Cell Distribution Width 14.9H, Platelet Count 262, Neutrophils (%) (Auto) 76.8H, Lymphocytes (%) (Auto) 9.9L, Monocytes (%) (Auto) 11.3H, Eosinophils (%) (Auto) 0.9, Basophils (%) (Auto) 0.3, Neutrophils # (Auto) 12.6H, Lymphocytes # (Auto) 1.6, Monocytes # (Auto) 1.9H, Eosinophils # (Auto) 0.2, Basophils # (Auto) 0.1, Nucleated Red Blood Cells % (auto) 0.0, Prothrombin Time 14.0, Prothromb Time International Ratio 1.07, Anion Gap 18H, Glomerular Filtration Rate 8.8L, Osmolality 320H, Calcium Level 8.2L, Phosphorus Level 8.8H, Magnesium Level 3.1H, Aspartate Amino Transf (AST/SGOT) 22, Alanine Aminotransferase (ALT/SGPT) 50, Alkaline Phosphatase 80, Total Bilirubin 0.6, Direct Bilirubin 0.2, Total Creatine Kinase 267, Creatine Kinase MB 14.0H, Creatine Kinase MB Relative Index 5.36H, Troponin I 0.06, JL-Jst-M-Type Natriuretic Peptide 9834H, Total Protein 7.0, Albumin 3.4, Albumin/Globulin Ratio 0.94L, Lipase 102, Thyroid Stimulating Hormone (TSH) 2.460, Free Thyroxine 1.11 11/11/18 13:34: Bedside Glucose (Misc Panel) 100 11/11/18 15:21: Urine Color YELLOW, Urine Appearance HAZY, Urine pH 5.0, Urine Specific [place] 1.013, Urine Protein NEGATIVE, Urine Glucose (UA) 1+H, Urine Ketones NEGATIVE, Urine Blood 1+H, Urine Nitrite NEGATIVE, Urine Bilirubin NEGATIVE, Urine Urobilinogen 0.2, Urine Leukocyte Esterase 3+H, Urine WBC (Auto) 16H, Urine RBC (Auto) 8H, Urine Hyaline Casts (Auto) 0, Urine Bacteria (Auto) 1+H, Urine Squamous Epithelial Cells 0, Urine Sperm (Auto) , Urine Random Osmolality 371L, Urine Random Creatinine 234.0, Urine Random Sodium 47, Urine Random Potassium 37.3 11/11/18 20:10: Anion Gap 14, Glomerular Filtration Rate 9.9L, Calcium Level 8.1L, Phosphorus Level 8.0H, Albumin 3.2, Blood Gas Bicarbonate Standard 16.6, Venous Blood pH 7.273L, Venous Blood Partial Pressure CO2 34.6L, Venous Blood Partial Pressure O2 182.1H, Venous Blood Total Carbon Dioxide 16.7L, Venous Blood HCO3 15.6L, Venous Blood Oxygen Saturation 99.1H, Venous Blood Base Excess -10.1L, Blood Urea Nitrogen 137H, Creatinine 5.92H, Sodium Level 133L, Potassium Level 4.8, Chloride Level 102, Carbon Dioxide Level 17L 11/11/18 21:00: Bedside Glucose (Misc Panel) 51L 11/11/18 22:19: Bedside Glucose (Misc Panel) 63L 11/11/18 23:56: Bedside Glucose (Misc Panel) 92 11/12/18 04:05: Immature Granulocyte % (Auto) 0.2, White Blood Count 12.4H, Red Blood Count 5.86, Hemoglobin 16.0, Hematocrit 47.9, Mean Corpuscular Volume 81.7, Mean Corpuscular Hemoglobin 27.3, Mean Corpuscular Hemoglobin Concent 33.4, Red Cell Distribution Width 14.8H, Platelet Count 268, Neutrophils (%) (Auto) 92.1H, Lymphocytes (%) (Auto) 4.4L, Monocytes (%) (Auto) 2.9, Eosinophils (%) (Auto) 0.2, Basophils (%) (Auto) 0.2, Neutrophils # (Auto) 11.4H, Lymphocytes # (Auto) 0.5L, Monocytes # (Auto) 0.4, Eosinophils # (Auto) 0.0, Basophils # (Auto) 0.0, Nucleated Red Blood Cells % (auto) 0.0, Anion Gap 13, Glomerular Filtration Rate 11.7L, Blood Urea Nitrogen 130H, Creatinine 5.14H, Sodium Level 137, Potassium Level 5.6H, Chloride Level 108H, Carbon Dioxide Level 16L, Calcium Level 8.7L CBC/BMP Laboratory Tests 11/11/18 13:33 Red Blood Count 5.54, Mean Corpuscular Volume 82.9, Mean Corpuscular Hemoglobin 27.3, Mean Corpuscular Hemoglobin Concent 32.9, Red Cell Distribution Width 14.9 H, Neutrophils (%) (Auto) 76.8 H, Lymphocytes (%) (Auto) 9.9 L, Monocytes (%) (Auto) 11.3 H, Eosinophils (%) (Auto) 0.9, Basophils (%) (Auto) 0.3, Neutrophils # (Auto) 12.6 H, Lymphocytes # (Auto) 1.6, Monocytes # (Auto) 1.9 H, Eosinophils # (Auto) 0.2, Basophils # (Auto) 0.1 11/11/18 20:10 Anion Gap 14 11/12/18 04:05 Red Blood Count 5.86, Mean Corpuscular Volume 81.7, Mean Corpuscular Hemoglobin 27.3, Mean Corpuscular Hemoglobin Concent 33.4, Red Cell Distribution Width 14.8 H, Neutrophils (%) (Auto) 92.1 H, Lymphocytes (%) (Auto) 4.4 L, Monocytes (%) (Auto) 2.9, Eosinophils (%) (Auto) 0.2, Basophils (%) (Auto) 0.2, Neutrophils # (Auto) 11.4 H, Lymphocytes # (Auto) 0.5 L, Monocytes # (Auto) 0.4, Eosinophils # (Auto) 0.0, Basophils # (Auto) 0.0, Calcium Level 8.7 L Microbiology Microbiology 11/11/18 Urine Culture, Received Pending JOE GORE DO Nov 12, 2018 09:46
--- NOTE | 2018-11-12 12:37 | REP ---
Clinical: Pacemaker placement . Comparison: 11/11/2018 . Technique: PA and lateral. Findings: Mediastinum and cardiac silhouette are normal. Dual lead pacemaker in stable satisfactory position. The lung ramirez are clear and without acute consolidation, effusion, or pneumothorax. The skeletal structures are intact and normal. Impression: 1. No acute cardiopulmonary process. Electronically Signed by Calvin Catherine MD 11/12/2018 12:29 P
[2018-11-12] MEDS: NS 0.45% 1,000 ML IV SCH (14:10)
--- NOTE | 2018-11-12 17:44 | ECGEPIP ---
Stationary ECG Study 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
[2018-11-12] MEDS: FINASTERIDE 5 MG TAB PO SCH (21:04)
[2018-11-12] MEDS: ATORVASTATIN 20 MG TAB PO SCH (21:04)
[2018-11-13] VITALS (8 sets, daily range): BP systolic 109–145; BP diastolic 53–72
[2018-11-13] MEDS: NS 0.45% 1,000 ML IV SCH ×3 (00:23→23:39)
[2018-11-13 05:00] LABS: HEMATOCRIT 42.3 % (42.0-52.0); HEMOGLOBIN 14.2 g/dl (13.5-17.5); MEAN CORPUSCULAR HEMOGLOBIN 27.5 pg (27.0-33.0); MEAN CORPUSCULAR HGB CONC 33.6 g/dl (32.0-36.5); MEAN CORPUSCULAR VOLUME 81.8 fl (80.0-96.0); PLATELET COUNT, AUTOMATED 249 10^3/uL (150-450); RED BLOOD COUNT 5.17 10^6/uL (4.30-6.10); WHITE BLOOD COUNT 15.1 10^3/uL (4.0-10.0)
[2018-11-13 05:19] LABS: ALBUMIN 2.9 GM/DL (3.2-5.2); CALCIUM LEVEL 8.3 MG/DL (8.8-10.2); CREATININE FOR GFR 3.99 MG/DL (0.70-1.30); GLOMERULAR FILTRATION RATE 15.7 (>42); PHOSPHORUS LEVEL 4.6 MG/DL (2.5-4.9); POTASSIUM SERUM 4.8 MEQ/L (3.5-5.1)
[2018-11-13] MEDS: SLF 3 ML SYR IV SCH ×3 (06:00→21:18)
[2018-11-13] MEDS: HumaLOG INSULIN (NovoLOG) PER UNIT SC SCH ×4 (07:30→20:37)
--- NOTE | 2018-11-13 08:37 | CR ---
DATE OF CONSULTATION: 11/12/2018 REQUESTING PHYSICIAN: Dr. Henry He. REASON FOR CONSULTATION: Management of acute kidney injury superimposed on chronic kidney disease and hypokalemia. CHIEF COMPLAINT: Recurrent syncopal episodes. HISTORY OF PRESENT ILLNESS: Mr. Mj Wright is a 78-year-old man with a past medical history of chronic kidney disease stage III with a baseline creatinine of around 2 as per previously labs. History of hypertension, diabetes mellitus type 2, multiple other comorbidities as mentioned below. He presented to the hospital yesterday with recurrent syncopal episodes and falls at home. He was found to be in third degree AV block yesterday. Patient also had acute renal failure on arrival with a creatinine of 6.5 with hypokalemia and potassium of 5.8. His case was initially discussed by the emergency room physician with the nephrology service yesterday. The decision was made to start the patient on IV bicarbonate fluid. The patient was emergently taken to the operating room (OR) for placement of a pacemaker. He got the left anterior chest wall pacemaker placed by cardiology. The nephrology service was called for further help in the management of this patient with acute renal failure superimposed on chronic kidney disease stage III. I saw and evaluated the patient this morning. The patient reports that he is feeling much better today. He also got a Graf catheter placed because of chronic urinary retention. He is in a polyuric phase at this point. He has made more than 3 liters of urine yesterday. His renal function is improving. PAST MEDICAL HISTORY: Chronic kidney disease stage III. Diabetes mellitus type 2. Hypertension. Hyperlipidemia. Benign prostate hypertrophy (BPH). Chronic urinary retention and hydronephrosis. History of dementia. Status post ventriculoperitoneal (HOT POND OPERATOR) shunt placement in the past. PAST SURGICAL HISTORY: History of HOT POND OPERATOR shunt placement in the past. Pacemaker placement, which was done yesterday. ALLERGIES: Patient is allergic to PENICILLIN and bee venom. FAMILY HISTORY: No significant family history of end-stage renal disease requiring hemodialysis. SOCIAL HISTORY: Patient is a former smoker. He denies any illicit drug abuse or alcohol abuse. REVIEW OF SYSTEMS: CONSTITUTIONAL: Patient reports that he was feeling very weak and tired before arrival but he feels better. EYES: He denies any blurry vision, double vision. ENT: Denies any dysphagia or odynophagia. CARDIOVASCULAR: He came in with third degree heart block but he denies any chest pain at this time. RESPIRATORY: He denies any shortness of breath, cough. GI: He denies any nausea or vomiting. GENITOURINARY: He reports chronic urinary retention and BPH. MUSCULOSKELETAL: He denies any muscle aches or pains. 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 PSYCH: He denies any depression or anxiety. SKIN: He denies any rashes. He does report some ulcerations in the lower extremity. HEMATOLOGICAL/ONCOLOGICAL: He denies any easy bleeding or bruising. ENDOCRINE: He reports history of type 2 diabetes. All other review of systems is negative. PHYSICAL EXAMINATION: GENERAL: Patient is awake, alert, oriented times three. VITAL SIGNS: Temperature is 99.1 degrees Fahrenheit, blood pressure 127/51, pulse 83, respiratory rate of 22, saturating 96%. HEAD/NECK: Extraocular muscles intact. Pupils equal, round, and reactive to light. Mucous membranes are moist. Neck is supple. There is no jugular venous distention (JVD). CARDIOVASCULAR: S1, S2, regular rate. Trace edema of the bilateral lower extremities. RESPIRATORY: Chest is clear to auscultation bilaterally. Bilaterally good air entry. No rales or rhonchi. ABDOMEN: Soft, obese. Positive bowel sounds. Nontender. No organomegaly. GENITOURINARY: Patient has an indwelling Graf catheter. At this point, urine in the bag is light yellow. MUSCULOSKELETAL: Chronic venous stasis changes of the bilateral lower extremities with trace edema. CENTRAL NERVOUS SYSTEM (LOG YARD DERRICK OPERATOR): No focal deficit. Power is 5/5 in bilateral upper extremities. PSYCHOLOGICAL: Normal mood and affect. LAB REVIEW: CBC showed WBC 12.4, hemoglobin 16, platelets 268. Urinalysis done in arrival showed 1+ glucose, 3+ leukocyte esterase, 16 WBC, 1+ bacteria. ABG done on arrival showed pH 7.27, pCO2 34, pO2 183, bicarbonate 15.6. BMP done on arrival showed sodium 128, potassium 5.6, chloride 98, bicarbonate 12, BUN 144, creatinine 6.5, calcium 8.2, phosphorus 8.8, magnesium 3.1. TSH 2.4, free T4 is 1.1. BMP done this morning shows sodium 137, potassium 5.6, chloride 108, bicarbonate 16, BUN 130, creatinine 5.1, calcium 8.7. Microbiology: Urine culture done on arrival is negative. Imaging: Chest x-ray done this morning showed no acute cardiopulmonary process. CT scan of the abdomen and pelvis was done without contrast on arrival which showed chronic moderate hydronephrosis noted bilaterally without nephroureterolithiasis or obstructing calculus. CURRENT INPATIENT MEDICATIONS: The patient's medications included IV Rocephin daily which was stopped this morning. I started him on half normal saline at 100 mL/h. He is on Tylenol as needed. He is on amlodipine 10 mg by mouth daily, aspirin 81 mg daily, Lipitor 40 mg nightly, Aricept 10 mg nightly has been stopped now. Finasteride 5 mg by mouth nightly. He is on insulin sliding scale. Flomax 0.4 mg by mouth twice a day. HOME MEDICATIONS: Include - amiloride 2.5 mg by mouth daily - amlodipine 10 mg daily - aspirin 81 mg daily - Lipitor 40 mg nightly - Coreg 6.25 mg twice a day - chlorthalidone 25 mg by mouth daily - Aricept 10 mg nightly - Jardiance 25 mg by mouth daily - finasteride 5 mg nightly - Lantus 48 units subcutaneously twice a day - lisinopril 10 mg daily - memantine 10 mg by mouth twice a day - potassium chloride 10 mg by mouth twice a day - Flomax 0.4 mg by mouth twice a day ASSESSMENT: 78-year-old male with acute kidney disease superimposed on chronic kidney disease stage III, third degree heart block, status post pacemaker, metabolic acidosis and hyperkalemia. PLAN: 1. Acute renal failure superimposed on chronic kidney disease stage III: It is secondary to multiple etiologies including use of diuretics and krissy inhibitor at home and complete heart block on arrival. However, patient is being hydrated at this point. Patient also had chronic bilateral hydronephrosis, which also might be contributing. He has a Graf catheter at this time. Patient is polyuric phase. I have started him on half normal saline at 100 mL/h. Patient is also able to hydrate himself. Continue to monitor improvement of renal function. Creatinines are slowly trending down. No need for renal placement therapy at this point. 2. Hyperkalemia: It is secondary to acute renal failure and use of amiloride and potassium chloride at home. Potassium level is improving. IV fluid hydration and delivery of sodium to the distal nephron is also expected to improve his potassium level. 3. Anion gap metabolic acidosis: This is secondary to acute renal failure. Patient was given IV bicarbonate. Currently his bicarbonate level is improving. No need of IV bicarbonate administration at this point. Metabolic acidosis is expected to improve with improvement in the renal function. 4. Third degree heart block: Patient got the pacemaker placement yesterday. Beta barbi and Aricept have been stopped by cardiology. 5. Hypertension: Blood pressure is acceptable at this point. Continue amlodipine 10 mg daily, Coreg has been stopped because of heart block. However, his heart is paced. I will restart if his blood pressures go up. 6. Chronic bilateral hydronephrosis: Patient has a Graf catheter at this point. He is in polyuria at this point. Continue current dose of Flomax. Restart the Proscar as well. IV antibiotics have been stopped because there is no evidence of urinary tract infection. 7. Diabetes mellitus type 2: Stop Jardiance at this point because of acute renal failure. Okay to continue insulin sliding scale. Patient can restart a long-acting insulin once he starts eating. Thank you for involving me in the care of this patient. I shall be happy to follow the patient along with you tomorrow morning. Total critical care time spent in the management of this patient in the intensive care unit (ICU) this morning was 1 hour. LORENZA
[2018-11-13] MEDS: ASPIRIN 81 MG ENTERIC TAB PO SCH (09:18)
[2018-11-13] MEDS: amLODIPine 10 MG TAB PO SCH (09:18)
[2018-11-13] MEDS: TAMSULOSIN 0.4 MG CAP PO SCH ×2 (09:19→20:45)
--- NOTE | 2018-11-13 20:22 | IPN ---
DATE: 11/13/2018 Mj is seen in intensive care unit (ICU). He is feeling well. His pacemaker is in and his renal function is improving. No chest pain. No shortness of breath. Discussed advanced directives today (see below). PHYSICAL EXAMINATION: Afebrile. 145/60. LUNGS: Clear. HEART: Regular rhythm. Chest wall is a little tender over the pacemaker. ABDOMEN: Soft, nontender. EXTREMITIES: No peripheral edema. LABORATORIES: BUN 4.8, creatinine is down to 3.99, white count is 15.1, hemoglobin 14.2. Blood sugars are under 200. Urine culture is negative. IMPRESSION: 1. Status post pacemaker, per cardiology. 2. Benign prostatic hypertrophy (BPH). On finasteride and tamsulosin, which he will continue. 3. Acute kidney failure superimposed on chronic kidney disease. Renal function is improving. Treatment as per nephrology. 4. Hypertension. Blood pressure is under adequate control on current amlodipine. 5. Diabetes. Jardiance and Glargine are on hold. He is currently on sliding scale of insulin. Note typographical error in nephrology's note where it was indicated that he would "discontinue" the Jardiance. 6. Question of urinary tract infection (UTI). Urine culture is negative. Ceftriaxone was discontinued. ADVANCED DIRECTIVES: Discussed advanced directives with the patient. He wants DO NOT RESUSCITATE, DO NOT INTUBATE status and no tube feedings. Antibiotic and IV fluids are acceptable. I asked to have a copy of this, which he signed, faxed to our office.
[2018-11-13] MEDS: FINASTERIDE 5 MG TAB PO SCH (20:45)
[2018-11-13] MEDS: ATORVASTATIN 20 MG TAB PO SCH (20:45)
[2018-11-13] MEDS: HEPARIN SOD (PORCINE) 5000 UNITS/ML VIAL SQ SCH (20:46)
[2018-11-13] MEDS ORDERED: CARVedilol 3.125 MG TAB PO SCH (21:00)
[2018-11-14] VITALS: BP 132/62
[2018-11-14 04:00] VITALS: BP 134/82
[2018-11-14] MEDS: SLF 3 ML SYR IV SCH ×3 (05:05→21:22)
[2018-11-14 06:23] LABS: HEMATOCRIT 43.2 % (42.0-52.0); HEMOGLOBIN 14.3 g/dl (13.5-17.5); MEAN CORPUSCULAR HEMOGLOBIN 27.4 pg (27.0-33.0); MEAN CORPUSCULAR HGB CONC 33.1 g/dl (32.0-36.5); MEAN CORPUSCULAR VOLUME 82.9 fl (80.0-96.0); PLATELET COUNT, AUTOMATED 243 10^3/uL (150-450); RED BLOOD COUNT 5.21 10^6/uL (4.30-6.10); WHITE BLOOD COUNT 13.5 10^3/uL (4.0-10.0)
[2018-11-14 07:04] LABS: ALBUMIN 2.9 GM/DL (3.2-5.2); CALCIUM LEVEL 8.2 MG/DL (8.8-10.2); CREATININE FOR GFR 2.77 MG/DL (0.70-1.30); GLOMERULAR FILTRATION RATE 23.9 (>42); PHOSPHORUS LEVEL 3.5 MG/DL (2.5-4.9); POTASSIUM SERUM 4.7 MEQ/L (3.5-5.1)
[2018-11-14 08:00] VITALS: BP 119/58
[2018-11-14] MEDS: ASPIRIN 81 MG ENTERIC TAB PO SCH (08:53)
[2018-11-14] MEDS: TAMSULOSIN 0.4 MG CAP PO SCH ×2 (08:53→21:07)
[2018-11-14] MEDS: HumaLOG INSULIN (NovoLOG) PER UNIT SC SCH ×4 (08:53→21:00)
[2018-11-14] MEDS: amLODIPine 10 MG TAB PO SCH (08:53)
[2018-11-14] MEDS: HEPARIN SOD (PORCINE) 5000 UNITS/ML VIAL SQ SCH ×2 (08:54→21:08)
[2018-11-14 12:00] VITALS: BP 136/59
--- NOTE | 2018-11-14 12:36 | IPN ---
DATE OF SERVICE: 11/13/2018 Mr. Mj Wright was seen earlier this afternoon. He was sitting in the chair in no acute distress at rest in intensive care unit (ICU)/critical care unit (CCU). He was initially admitted on 11/11/2018 with recurrent syncope and while in the emergency room (ER), he was found to be in a complete heart block and had an episode of asystole associated with seizures. A permanent pacemaker was implanted by Dr. He on 11/11/2018. Since then, the patient has been asymptomatic without any dizziness or syncope or near syncope. On presentation, he also was found to have deterioration of his kidney function with a BUN and creatinine of 144 and 6.58 respectively, serum potassium was 5.6. Today, his BUN is 116 with a creatinine of 3.99 and serum potassium is 4.8. He denies any chest pain or shortness of breath, palpitations. There is no report of orthopnea or bleeding. There is no report of cough or hematemesis. There is no nausea, vomiting, diarrhea, melena or hematemesis. There is no focal manifestation. He does complain of bruises and joint and muscle pain from his recurrent falls at home. On physical examination, the patient is alert and oriented, in no acute distress at rest and his vital signs revealed a blood pressure of 145/60 and earlier today, it was 132/61 with a pulse that varied between 77 and 85, respirations 18 to 20 and his maximum temperature is 99.6 degrees Fahrenheit last night with an oxygen saturation of 98% on room air. He has a negative fluid balance of 2 liters for 11/12/2018. So far today, he is in a negative fluid balance of 1.5 liters. HEENT: Examination of the head: Atraumatic. Neck is supple. LUNGS: The lungs are clear bilaterally on auscultation. HEART: The heart examination revealed a regular heart sound without gallops. The point of maximal impulse (PMI) is not displaced. There is no rub. There is a systolic murmur grade 1/6 at the base of the heart and some minimal radiation to the neck was noted. ABDOMEN: The abdomen is soft. EXTREMITIES: The extremities revealed trace ankle edema. NEUROLOGICAL: The neurological examination grossly was negative for focal deficits. LABORATORIES: A BMP done today revealed a sodium of 141, potassium 4.1, chloride 112, CO2 19, BUN 116, creatinine 3.99, GFR 15.7, fasting glucose 99 and calcium 8.3. A CBC revealed a white blood cell (WBC) of 15.1, hemoglobin 14.2, hematocrit 42.3 and platelets 249,000. Urinalysis on admission revealed a glucose of +1 as well as +3 leukocyte esterase and 16 WBCs and +1 bacteria. Urine culture revealed no growth. Chest x-ray on 11/12/2018 after his pacemaker implant revealed no manifestation of pneumothorax. No cardiomegaly. No pleural effusion or manifestation of heart failure. Abdominal and pelvic CT on 11/12/2018 revealed chronic moderate hydronephrosis bilaterally without nephrolithiasis. There is a stable bilateral renal cyst, sigmoid diverticula without diverticulitis. Telemetry was reviewed and revealed normal sinus rhythm. IMPRESSION: 1. Symptomatic complete heart block and an episode of asystole in this 78-year-old male with multiple risk factors. A dual-chamber [employer] permanent pacemaker was implanted on 11/11/2018 and the patient has been asymptomatic. Dr. eH was supposed to check the device yesterday but according to nursing staff, he has not been here to check it. He does not state any issues and the site of the implant did not reveal any bleeding and no significant swelling noted. His device will be checked tomorrow, 11/14/2018. He will be restarted on his beta-barbi but at a smaller dose. We will continue to monitor him in the intensive care unit (ICU)/critical care unit (CCU) until we check the device. The deterioration in his kidney function as well as the hyperkalemia and his medications may be a contributing factor to this event. 2. Acute on chronic kidney disease and this is improving with intravenous (IV) fluids. 3. History of hypertension. This is being addressed. 4. History of diabetes mellitus. He is being monitored. 5. Hyperlipidemia, on a statin. 6. History of dementia and ventriculoperitoneal (SPECIAL SERVICE OFFICER) shunt implanted. 7. History of chronic kidney disease. 8. History of benign prostatic hyperplasia (BPH). 9. Status post hyponatremia. 10. Status post hyperkalemia. It was a pleasure to participate in the care of Mr. Barker Wiliam Wright Jr. for his underlying cardiac condition. He appears to be stable and I will continue current management. He was restarted on a small dose of his carvedilol and also on deep vein thrombosis (DVT) prophylaxis with subcutaneous heparin. Tomorrow, he will be seen by Dr. Henry He.
--- NOTE | 2018-11-14 14:17 | IPN ---
DATE: 11/13/2018 SUBJECTIVE: The patient was seen and examined in the bedside this morning. The patient is afebrile and hemodynamically stable. His blood pressures are controlled. He is making a good amount of urine. He is actually in polyuric phase. Renal function is slowly improving. OBJECTIVE: VITAL SIGNS: Temperature 99.2 degrees Fahrenheit, blood pressure 145/60, pulse is 81, respiratory rate of 21, saturating 98% on room air. Intake and output: Urine output recorded as 4.7 liters yesterday, 3.6 liters so far today since overnight. Weight on the bed scale is 126.5 kg. PHYSICAL EXAMINATION: GENERAL: The patient is awake, alert and oriented times three. Obese, lying in bed, no apparent distress. HEAD AND NECK EXAM: Extraocular muscles are intact. Pupils are equal, round and reactive to light. Mucous membranes are moist. NECK: Supple. There is no jugular venous distention (JVD). CARDIOVASCULAR: S1, S2. Regular rate. Left sided pacemaker is noted, which had been done the day before yesterday. No edema of the bilateral lower extremities. RESPIRATORY: Chest is clear to auscultation bilaterally. Bilateral equal air entry. No rales or rhonchi. ABDOMEN: Soft, obese. Positive bowel sounds. Nontender. No organomegaly. GENITOURINARY: The patient has an indwelling Graf catheter at this time. MUSCULOSKELETAL: No clubbing or cyanosis. Pulses are 2+. CENTRAL NERVOUS SYSTEM (HANDBAG OPERATOR): No focal deficits. Power is 5/5 in all extremities. PSYCHIATRIC: Normal mood and affect. LABORATORY REVIEW: CBC showed a WBC of 15.1, hemoglobin is 14.2, platelets are 249. BMP showed sodium 141, potassium 4.8, chloride 112, bicarbonate 19, BUN 116, creatinine is 3.9, calcium 8.3, phosphorous is 4.6, albumin 2.9. CURRENT INPATIENT MEDICATIONS: The patient's medications were all reviewed by me. He was on half normal saline at 100 mL an hour, which yesterday morning I restarted his IV fluids because the patient is having more than a gallon of urine output in a day. His carvedilol was stopped. No other change in the medication today as compared with yesterday. ASSESSMENT AND PLAN: 1. Acute kidney injury superimposed on chronic kidney disease stage III. The patient was using diuretics and PRAVIN inhibitor at home. He came in with complete heart block and he also has a history of chronic urinary retention and bilateral hydronephrosis. The patient has an indwelling Graf catheter at this point. He is having polyuria at this point. Renal function is slowly improving. Continue the IV fluid hydration with half normal saline. No urgent need for renal replacement therapy. 2. Hyperkalemia. The patient's potassium is slowly improving with IV fluid hydration. 3. Anion gap metabolic acidosis. It is secondary to renal failure. His bicarbonate level is improving slowly with improvement in renal function. No need of IV bicarbonate administration. 4. Hypertension. Blood pressure is acceptable. Continue current dose of amlodipine 10 mg daily. Carvedilol was stopped on admission because of third degree heart block. 5. Chronic bilateral hydronephrosis. The patient has a Graf catheter at this point. Continue Flomax and Proscar. I will continue the Graf catheter at this point until the patient's polyuria improves. 6. Third degree heart block. The patient got the pacemaker placed by cardiology. Rest of the management as per cardiology recommendations. 7. Diabetes mellitus type 2. Jardiance was stopped on admission because of renal failure. Okay to continue sliding scale. Rest of the management is as per primary team.
--- NOTE | 2018-11-14 14:49 | NUR ---
Pt seen for bedside swallow evaluation d/t Pt report of difficulty swallowing on 11/12/18. Pt does not recall reporting this. Swallow function is adequate. No overt s/s of aspiration/penetration/difficulty chewing. Please continue regular solids and liquids. Follow up 1x Addendum: 11/15/18 at 1450 by SOFIA GOLDMAN [facility] Amended: Links added.
--- NOTE | 2018-11-14 15:18 | REP ---
Right knee: Four views. History: Knee pain. Findings: Four views of the right knee demonstrate nonarticular spurring on the superior pole patella at the quadriceps tendon insertion. There is also mild articular spurring on the superior pole of the patella. Bones, joints, and soft tissues are otherwise unremarkable. No erosive change or fracture is seen. Impression: Patellar spurring. No acute bony abnormality. Electronically Signed by Tyrese Yoon MD 11/14/2018 05:52 P
--- NOTE | 2018-11-14 15:19 | REP ---
LUMBAR SPINE, FIVE VIEWS: HISTORY: Knee pain. There is no acute fracture or subluxation. The lumbar intervertebral discs are decreased in height consistent with disc degeneration. Osteophyte are present throughout the lumbar spine. There is narrowing of the L4-5 and L5-S1 facet joints. IMPRESSION:Degenerative change as described above. Electronically Signed by Benito Sullivan MD 11/14/2018 03:22 P
[2018-11-14 16:00] VITALS: BP 159/72
--- NOTE | 2018-11-14 18:23 | IPNPDOC ---
Subjective Date Seen The patient was seen on 11/14/18. Subjective Chief Complaint/HPI heart block Events since last encounter Patient notes he has been walking with walker. Denies shortness of breath, chest pain. Notes some continued back and right knee pain, affecting his ability to ambulate effectively. Denies fevers, chills. Constitutional: Denies: Chills, Fever ENT: Denies: Head Aches Pulmonary: Denies: Dyspnea, Cough Cardiovascular: Denies: Chest Pain Gastrointestinal: Denies: Nausea, Vomiting, Abdominal Pain Objective Physical Examination General Exam: Positive: Alert, Cooperative, No Acute Distress Eye Exam: Positive: Conjunctiva & lids normal, EOMI; Negative: Sclera icteric ENT Exam: Positive: Atraumatic, Mucous membr. moist/pink Neck Exam: Positive: Supple; Negative: JVD Chest Exam: Positive: Clear to auscultation, Normal air movement; Negative: Rales, Rhonchi, Wheezing Heart Exam: Positive: Rate Normal, Regular Rhythm Abdomen Exam: Positive: Normal bowel sounds, Soft; Negative: Tenderness Extremity Exam: Negative: Edema, Swelling Skin Exam: Positive: Nl turgor and temperature, Other skin issue (b/l lower extrermity appears to be mildly dry) Neuro Exam: Positive: Normal Speech, Strength at 5/5 X4 ext Psych Exam: Positive: Mental status NL, Mood NL, Memory Intact, Oriented x 3 Assessment /Plan Problems (1) Third degree AV block Status: Acute Problem Specific Plan: Consult Specialist Problem Text: 2/4 Pacemaker placed. Patient asymptomatic at this time. Continue to hold potential bradycardia medications. Will need cardiac rehab. Continue to work with PT at this time. 11/12/18 Third degree AV block. Asystole for 6 sec. several syncope episode as well as minor seizure episode likely 2/2 to ischemic from third degree Av block. S/p pacemaker placement. Now RRR. Pt asymptomatic. Cont to monitor pt on tele (2) Acute kidney injury superimposed on CKD Status: Acute Response to Treatment: Improving Problem Specific Plan: Monitor Clinically, Repeat Labs Problem Text: 2/4 Nephrology consulted at this time. Appreciate their assistance in management of this patient. Creatinine continues to trend down. Patient continues to urinate with burns catheter. Repeat lab tomorrow. 2/2 PMH of CKD. Creatinine 5.14 today with baseline creat at 2, improving. Hyponatremia resolved. Hyperkalemia at 5.6 with hyperphosphoretemia at 8.0. Pt has PMH of nonspecific urinary incontinence. Based on what patient describes, likely overflow incontinence 2/2 BPH. Cont Finasteride and Flomax. CT abd showed b/l chronic moderate hydronephrosis likely 2/2 to urinary retention. Cont burns catheter. Pt tolerating PO oral fluid well thus will not start IVF at this time as part of KOBE may be contributed to renal ischemia from AV block. Nephrology is following, and we appreciate their input. Cont to follow up renal profile. Cont I&O (3) Low back pain Problem Text: Patient has had some low back pain since falls prior to admission. Has some discomfort to palpation, has been improving since admission. Ordering lumbosacral radiograph to evaluate for possible fracture. (4) Right knee pain Problem Text: Developed some pain after falls prior to admission. Ordering radiograph to evaluate for possible fracture. (5) Diabetes mellitus Status: Chronic Problem Text: 2/4 Continue insulin with sliding scale at this time. Monitor glucose. 2/2 PMH of DM type 2. Hold home medication Jardiance and insulin Glargine. Insulin sliding scale. Pt had few episodes of hypoglycemia with trough to the 40s. Most recent POC 90s. Hypoglycemia protocol. Consider starting D5 if pt continues to have episodes of hypoglycemia. POC as scheduled; cont to monitor pt (6) Hypertension Status: Chronic Response to Treatment: Stable Problem Text: Continue norvasc 10 mg daily. Hold renal affecting medications for decreased renal function. Monitor BP. (7) BPH (benign prostatic hyperplasia) Status: Chronic Problem Specific Plan: Monitor Clinically Problem Text: BPH on Tamsulosin and Finasterid. Cont to monitor pt. Urinary retention; pt stated that he has uncontrolled urination at home and wears a pull-up at home. Stated that he has not been able to urinate since admission. CT abdomen showed b/l chronic mod hydronephrosis. Cont to monitor (8) Hydrocephalus in adult Status: Chronic Response to Treatment: Stable Problem Text: PMH of hydrocephalus. Sp HOSE TESTER shunt. Stable (9) UTI (urinary tract infection) Status: Acute Problem Specific Plan: Monitor Clinically Problem Text: Urine culture negative. (10) Hyperkalemia Status: Resolved Problem Specific Plan: Consult Specialist, Repeat Labs Problem Text: Repeat lab tomorrow. Plan/VTE VTE Prophylaxis Ordered?: Yes (TEDS and SCD) Plan/Urinary Catheter Urinary Catheter: Place Burns Plan Diet: Continue Current Activity: Continue Current Therapy: PT Diagnostics: Check Labs, Repeat Labs in AM, Obtain Cultures VS, I&O, 24H, Fishbone Vital Signs/I&O Vital Signs Date Time Temp Pulse Resp B/P (MAP) Pulse Ox O2 Delivery O2 Flow Rate FiO2 11/14/18 16:00 97.9 78 20 159/72 (101) 98 11/12/18 04:00 3.0 11/11/18 20:25 Nasal Cannula I&O- Last 24 Hours up to 6 AM 11/14/18 06:00 Intake Total 1200 ml Output Total 5095 ml Balance -3895 ml Laboratory Data 24H LABS Laboratory Tests 2 11/13/18 18:08: Bedside Glucose (Misc Panel) 149H 11/13/18 20:37: Bedside Glucose (Misc Panel) 216H 11/14/18 06:03: Nucleated Red Blood Cells % (auto) 0.0, Blood Urea Nitrogen 88H, Creatinine 2.77H, Sodium Level 142, Potassium Level 4.7, Chloride Level 114H, Carbon Dioxide Level 19L, Anion Gap 9, Glomerular Filtration Rate 23.9L, Calcium Level 8.2L, Phosphorus Level 3.5#, Albumin 2.9L 11/14/18 12:02: Bedside Glucose (Misc Panel) 159H 11/14/18 16:16: Bedside Glucose (Misc Panel) 136H CBC/BMP Laboratory Tests 11/14/18 06:03 Red Blood Count 5.21, Mean Corpuscular Volume 82.9, Mean Corpuscular Hemoglobin 27.4, Mean Corpuscular Hemoglobin Concent 33.1, Red Cell Distribution Width 15.6 H, Anion Gap 9 Microbiology Microbiology 11/11/18 Urine Culture - Final, Complete GME ATTESTATION GME ATTESTATION My faculty preceptor for this patient encounter was physically present during the encounter and was fully available. All aspects of the patient interview, examination, medical decision making process, and medical care plan development were reviewed and approved by the faculty preceptor. The faculty preceptor is aware and concurs with the plan as stated in the body of this note and will attest to such by his/her cosignature. FAIZAN COLLAZO DO Nov 14, 2018 17:25
[2018-11-14 20:00] VITALS: BP 124/64
[2018-11-14] MEDS: ATORVASTATIN 20 MG TAB PO SCH (21:07)
[2018-11-14] MEDS: FINASTERIDE 5 MG TAB PO SCH (21:07)
[2018-11-15] VITALS (7 sets, daily range): BP systolic 135–162; BP diastolic 61–83
[2018-11-15] MEDS: SLF 3 ML SYR IV SCH ×3 (05:02→21:02)
[2018-11-15 06:02] LABS: HEMATOCRIT 43.8 % (42.0-52.0); HEMOGLOBIN 14.6 g/dl (13.5-17.5); MEAN CORPUSCULAR HEMOGLOBIN 27.7 pg (27.0-33.0); MEAN CORPUSCULAR HGB CONC 33.3 g/dl (32.0-36.5); MEAN CORPUSCULAR VOLUME 83.1 fl (80.0-96.0); PLATELET COUNT, AUTOMATED 248 10^3/uL (150-450); RED BLOOD COUNT 5.27 10^6/uL (4.30-6.10); WHITE BLOOD COUNT 12.6 10^3/uL (4.0-10.0)
[2018-11-15 06:24] LABS: ALBUMIN 3.1 GM/DL (3.2-5.2); CALCIUM LEVEL 8.7 MG/DL (8.8-10.2); CREATININE FOR GFR 2.33 MG/DL (0.70-1.30); GLOMERULAR FILTRATION RATE 29.1 (>42); PHOSPHORUS LEVEL 3.3 MG/DL (2.5-4.9); POTASSIUM SERUM 4.4 MEQ/L (3.5-5.1)
--- NOTE | 2018-11-15 08:24 | IPN ---
DATE OF SERVICE: 11/14/2018 SUBJECTIVE: The patient was seen and examined in the bedside today morning. At the bedside he has been transferred out of intensive care unit (ICU). He is afebrile. Hemodynamically stable. He still has a very good urine output. Renal function continues to improve. Creatinine is down to 2.7 now. OBJECTIVE: VITAL SIGNS: Temperature 98.3 degrees Fahrenheit, blood pressure 136/59, pulse is 92, respiratory rate of 20, saturating 96% on room air. Intake and output: Urine output recorded yesterday is 4 liters, urine output so far today since overnight is 4.7 liters. Weight in the bed scale is 123.5 kg. PHYSICAL EXAMINATION: GENERAL: The patient is awake, alert and oriented times three. Obese, sitting up in the bed, no apparent distress. HEAD AND NECK EXAM: Extraocular muscles are intact. Pupils are equal, round and reactive to light. Mucous membranes are moist. NECK: Supple. There is no jugular venous distention (JVD). CARDIOVASCULAR: S1, S2. Regular rate. Left sided pacemaker is noted. RESPIRATORY: Chest is clear to auscultation bilaterally. Bilateral equal air entry. No rales or rhonchi. ABDOMEN: Soft, obese. Positive bowel sounds. Nontender. No organomegaly. GENITOURINARY: The patient has an indwelling Graf catheter. Urine in the bag is clear. MUSCULOSKELETAL: No clubbing or cyanosis. Pulses are 2+. CENTRAL NERVOUS SYSTEM (SEED DISTRICT SALES MANAGER): No focal deficits. Power is 5/5 in all extremities. PSYCHIATRIC: Normal mood and affect. LABORATORY REVIEW: CBC showed a WBC of 13.5, hemoglobin is 14.3, platelets are 243. BMP showed sodium 142, potassium 4.7, chloride 114, bicarbonate 19, BUN 88, creatinine is 2.7, was 3.9 yesterday, calcium 8.2, phosphorous is 3.5, albumin is 2.9. CURRENT INPATIENT MEDICATIONS: The patient's medications were all reviewed by me. IV fluids have been stopped now. No other change in the medications today as compared with yesterday. ASSESSMENT AND PLAN: 1. Acute kidney injury superimposed on chronic kidney disease stage 3. Patient's renal function continues to improve. IV fluids have been stopped today now. Give patient free access to water. Patient is still in polyuric phase. Renal function continues to improve. 2. Anion gap metabolic acidosis. Patient's renal function is improving. Bicarbonate level is improving. No need of oral or IV bicarbonate administration at this time. 3. Hypertension. Blood pressure is acceptable. Continue current dose of amlodipine. 4. Chronic bilateral hydronephrosis. Continue Proscar and Flomax. Continue the Graf catheter at this point. Patient will need to followup at urology as outpatient for voiding trial. 5. Diabetes mellitus type 2. Continue insulin sliding scale. Avoid use of Jardiance at this time because of renal failure. 6. Third degree heart block, status post pacemaker placement. Coreg and Aricept were held on admission. Rest of the management is as per cardiology team.
[2018-11-15] MEDS: HumaLOG INSULIN (NovoLOG) PER UNIT SC SCH ×4 (08:41→21:00)
[2018-11-15] MEDS: ASPIRIN 81 MG ENTERIC TAB PO SCH (08:42)
[2018-11-15] MEDS: HEPARIN SOD (PORCINE) 5000 UNITS/ML VIAL SQ SCH ×2 (08:42→21:02)
[2018-11-15] MEDS: amLODIPine 10 MG TAB PO SCH (08:42)
[2018-11-15] MEDS: TAMSULOSIN 0.4 MG CAP PO SCH ×2 (08:42→21:02)
--- NOTE | 2018-11-15 12:25 | IPNPDOC ---
Subjective Date Seen The patient was seen on 11/15/18. Subjective Chief Complaint/HPI No complaints. Ambulated with Pt in hallway without dyspnea or CP Constitutional: Denies: Chills, Fever Pulmonary: Denies: Dyspnea, Cough Gastrointestinal: Denies: Nausea, Vomiting, Abdominal Pain, Diarrhea, Constipation Genitourinary: Reports: Other Symptoms (burns in opplace with clear yellow urine) Objective Physical Examination General Exam: Positive: Alert, No Acute Distress Eye Exam: Negative: Sclera icteric Neck Exam: Negative: JVD Chest Exam: Positive: Clear to auscultation, Normal air movement; Negative: Rales, Rhonchi, Wheezing Heart Exam: Positive: Rate Normal, Regular Rhythm Abdomen Exam: Positive: Normal bowel sounds, Soft; Negative: Tenderness Extremity Exam: Negative: Edema, Swelling Skin Exam: Positive: Other skin issue (b/l lower extrermity appears to be mildly dry) Neuro Exam: Positive: Normal Speech Psych Exam: Positive: Mental status NL, Mood NL, Memory Intact, Oriented x 3 Assessment /Plan Problems (1) Third degree AV block Status: Acute Problem Specific Plan: Consult Specialist Problem Text: 11/15 - s/p Pacemaker / Pacemaker placed. Patient asymptomatic at this time. Continue to hold potential bradycardia medications. Will need cardiac rehab. Continue to work with PT at this time. 11/12/18 Third degree AV block. Asystole for 6 sec. several syncope episode as well as minor seizure episode likely 2/2 to ischemic from third degree Av block. S/p pacemaker placement. Now RRR. Pt asymptomatic. Cont to monitor pt on tele (2) Acute kidney injury superimposed on CKD Status: Acute Response to Treatment: Improving Problem Specific Plan: Monitor Clinically, Repeat Labs Problem Text: 11/15 - improved with burns placement and holding PRAVIN and Chlort halidone 2/ Nephrology consulted at this time. Appreciate their assistance in management of this patient. Creatinine continues to trend down. Patient continues to urinate with burns catheter. Repeat lab tomorrow. 2/2 PMH of CKD. Creatinine 5.14 today with baseline creat at 2, improving. Hyponatremia resolved. Hyperkalemia at 5.6 with hyperphosphoretemia at 8.0. Pt has PMH of nonspecific urinary incontinence. Based on what patient describes, likely overflow incontinence 2/2 BPH. Cont Finasteride and Flomax. CT abd showed b/l chronic moderate hydronephrosis likely 2/2 to urinary retention. Cont burns catheter. Pt tolerating PO oral fluid well thus will not start IVF at this time as part of KOBE may be contributed to renal ischemia from AV block. Nephrology is following, and we appreciate their input. Cont to follow up renal profile. Cont I&O (3) Low back pain Problem Text: Patient has had some low back pain since falls prior to admission . Has some discomfort to palpation, has been improving since admission. Ordering lumbosacral radiograph to evaluate for possible fracture. (4) Right knee pain Problem Text: Developed some pain after falls prior to admission. Ordering radiograph to evaluate for possible fracture. (5) Diabetes mellitus Status: Chronic Problem Text: 2/4 Continue insulin with sliding scale at this time. Monitor glucose. 2/2 PMH of DM type 2. Hold home medication Jardiance and insulin Glargine. Ins ulin sliding scale. Pt had few episodes of hypoglycemia with trough to the 40s. Most recent POC 90s. Hypoglycemia protocol. Consider starting D5 if pt continues to have episodes of hypoglycemia. POC as scheduled; cont to monitor pt (6) Hypertension Status: Chronic Response to Treatment: Stable Problem Text: Continue norvasc 10 mg daily. Hold renal affecting medications for decreased renal function. Monitor BP. (7) BPH (benign prostatic hyperplasia) Status: Chronic Problem Specific Plan: Monitor Clinically Problem Text: BPH on Tamsulosin and Finasterid. Cont to monitor pt. Urinary retention; pt stated that he has uncontrolled urination at home and wears a pull-up at home. Stated that he has not been able to urinate since admission. CT abdomen showed b/l chronic mod hydronephrosis. Cont to monitor (8) Hydrocephalus in adult Status: Chronic Response to Treatment: Stable Problem Text: PMH of hydrocephalus. Sp MANAGER PROGRAMS shunt. Stable (9) UTI (urinary tract infection) Status: Acute Problem Specific Plan: Monitor Clinically Problem Text: Urine culture negative. (10) Hyperkalemia Status: Resolved Problem Specific Plan: Consult Specialist, Repeat Labs Problem Text: Repeat lab tomorrow. (11) Hydronephrosis Status: Chronic Response to Treatment: Stable Problem Text: burns placed on admission will need urology consult after discharge. Plan/VTE VTE Prophylaxis Ordered?: Yes (TEDS and SCD) Plan/Urinary Catheter Urinary Catheter: Place Burns Plan Diet: Continue Current Activity: Continue Current Therapy: PT, OT Diagnostics: Check Labs, Repeat Labs in AM, Obtain Cultures Disposition May be a candidate for ARU - I will consult today VS, I&O, 24H, [facility] Vital Signs/I&O Vital Signs Date Time Temp Pulse Resp B/P (MAP) Pulse Ox O2 Delivery O2 Flow Rate FiO2 11/15/18 08:42 81 158/74 11/15/18 08:00 98.1 20 98 11/12/18 04:00 3.0 11/11/18 20:25 Nasal Cannula I&O- Last 24 Hours up to 6 AM 11/15/18 06:00 Intake Total 1650 ml Output Total 4025 ml Balance -2375 ml Laboratory Data 24H LABS Laboratory Tests 2 11/14/18 16:16: Bedside Glucose (Misc Panel) 136H 11/14/18 21:03: Bedside Glucose (Misc Panel) 181H 11/15/18 05:45: Blood Urea Nitrogen 75H, Creatinine 2.33H, Sodium Level 143, Potassium Level 4.4, Chloride Level 114H, Carbon Dioxide Level 21, Anion Gap 8, Glomerular Filtration Rate 29.1L, Calcium Level 8.7L, Phosphorus Level 3.3, Albumin 3.1L 11/15/18 05:46: Nucleated Red Blood Cells % (auto) 0.0 CBC/BMP Laboratory Tests 11/15/18 05:45 Anion Gap 8 11/15/18 05:46 Red Blood Count 5.27, Mean Corpuscular Volume 83.1, Mean Corpuscular Hemoglobin 27.7, Mean Corpuscular Hemoglobin Concent 33.3, Red Cell Distribution Width 15.5 H Microbiology Microbiology 11/11/18 Urine Culture - Final, Complete VESTA MARMOLEJO PA-C Nov 15, 2018 12:25 Espinoza Woods MD Nov 15, 2018 14:51
[2018-11-15] MEDS: ATORVASTATIN 20 MG TAB PO SCH (21:02)
[2018-11-15] MEDS: FINASTERIDE 5 MG TAB PO SCH (21:02)
[2018-11-16 04:00] VITALS: BP 136/62
[2018-11-16] MEDS: SLF 3 ML SYR IV SCH ×3 (05:07→20:05)
[2018-11-16 06:11] LABS: HEMATOCRIT 48.1 % (42.0-52.0); HEMOGLOBIN 15.7 g/dl (13.5-17.5); MEAN CORPUSCULAR HEMOGLOBIN 27.5 pg (27.0-33.0); MEAN CORPUSCULAR HGB CONC 32.6 g/dl (32.0-36.5); MEAN CORPUSCULAR VOLUME 84.4 fl (80.0-96.0); PLATELET COUNT, AUTOMATED 245 10^3/uL (150-450); WHITE BLOOD COUNT 13.9 10^3/uL (4.0-10.0)
[2018-11-16 06:35] LABS: ALBUMIN 3.3 GM/DL (3.2-5.2); CALCIUM LEVEL 8.8 MG/DL (8.8-10.2); CREATININE FOR GFR 2.24 MG/DL (0.70-1.30); GLOMERULAR FILTRATION RATE 30.5 (>42); POTASSIUM SERUM 4.5 MEQ/L (3.5-5.1)
[2018-11-16 08:00] VITALS: BP 139/74
[2018-11-16] MEDS: HumaLOG INSULIN (NovoLOG) PER UNIT SC SCH ×4 (08:07→20:05)
[2018-11-16] MEDS: HEPARIN SOD (PORCINE) 5000 UNITS/ML VIAL SQ SCH ×2 (08:08→20:05)
[2018-11-16] MEDS: TAMSULOSIN 0.4 MG CAP PO SCH ×2 (08:08→20:04)
[2018-11-16] MEDS: ASPIRIN 81 MG ENTERIC TAB PO SCH (08:08)
[2018-11-16] MEDS: amLODIPine 10 MG TAB PO SCH (08:08)
--- NOTE | 2018-11-16 08:29 | ECGEPIP ---
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
--- NOTE | 2018-11-16 09:02 | IPN ---
DATE: 11/15/2018 SUBJECTIVE: The patient was seen and examined in the bedside today morning. He is afebrile. Hemodynamically stable. Renal function continues to improve. Creatinine is down to 2.3. He is getting physical therapy, and I was told by physical therapy that he is not cleared for discharge at this point. OBJECTIVE: VITAL SIGNS: Temperature 97.2 degrees Fahrenheit, blood pressure 147/70, pulse is 81, respiratory rate of 22, saturating 97% on room air. Intake and output: Urine output recorded yesterday as 5.8 liters, urine output so far today since overnight is 2.5 liters. Weight on the bed scale is 121 kg. PHYSICAL EXAMINATION: GENERAL: The patient is awake, alert and oriented times three. Sitting up in the bed, no apparent distress. HEAD AND NECK EXAM: Extraocular muscles are intact. Pupils are equal, round and reactive to light. Mucous membranes are moist. NECK: Supple. There is no jugular venous distention (JVD). CARDIOVASCULAR: S1, S2. Regular rate. Left sided pacemaker. Trace edema of the bilateral lower extremities. RESPIRATORY: Chest is clear to auscultation bilaterally. Bilateral equal air entry. No rales or rhonchi. ABDOMEN: Soft, obese. Positive bowel sounds. Nontender. No organomegaly. GENITOURINARY: He has an indwelling Graf catheter. MUSCULOSKELETAL: No clubbing or cyanosis. Pulses are 2+. 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 Power is 5/5 in all extremities. LABORATORY REVIEW: CBC showed a WBC of 12.6, hemoglobin is 14.6, platelets are 248. BMP showed sodium 143, potassium 4.4, chloride 114, bicarbonate 21, BUN 75, creatinine is 2.3, calcium 8.7, phosphorous is 3.3, albumin is 3.1. CURRENT INPATIENT MEDICATIONS: The patient's medications were all reviewed by me. There is no change in the medications today as compared with yesterday. ASSESSMENT AND PLAN: 1. Acute kidney injury superimposed on chronic kidney disease stage 3. Patient continues to have very good urine output. Renal function continues to improve. Creatinine is down to 2.3 on today's laboratories. Continue to encourage oral hydration. 2. Anion gap metabolic acidosis. This was secondary to renal failure. Bicarbonate level has nicely improved to 21 today. 3. Hypertension. Blood pressure is acceptable. Continue current dose of amlodipine. Avoid use of PRAVIN inhibitors or angiotensin receptor blockers. Coreg was held on admission because of third degree heart block. 4. Chronic bilateral hydronephrosis. Continue Proscar and Flomax. Continue indwelling Graf catheter. He will need to followup at urology as outpatient.
[2018-11-16 12:00] VITALS: BP 142/65
[2018-11-16] MEDS ORDERED: MIRALAX *UNIT DOSE* 17GM PACKET PO PRN (13:00)
[2018-11-16] MEDS ORDERED: BISACODYL 10 MG SUPP PR PRN (13:00)
[2018-11-16 16:00] VITALS: BP 139/65
--- NOTE | 2018-11-16 17:38 | IPNPDOC ---
Subjective Date Seen The patient was seen on 11/16/18. Subjective Chief Complaint/HPI NO new complaints Constitutional: Denies: Chills, Fever Pulmonary: Denies: Dyspnea, Cough Cardiovascular: Denies: Chest Pain, Palpitations Gastrointestinal: Denies: Nausea, Vomiting, Abdominal Pain, Diarrhea, Constipation Objective Physical Examination General Exam: Positive: Alert, No Acute Distress Eye Exam: Negative: Sclera icteric Neck Exam: Negative: JVD Chest Exam: Positive: Clear to auscultation, Normal air movement; Negative: Rales, Rhonchi, Wheezing Heart Exam: Positive: Rate Normal, Regular Rhythm Abdomen Exam: Positive: Normal bowel sounds, Soft; Negative: Tenderness Extremity Exam: Negative: Edema, Swelling Skin Exam: Positive: Other skin issue (b/l lower extrermity appears to be mildly dry) Neuro Exam: Positive: Normal Speech Psych Exam: Positive: Mental status NL, Mood NL, Memory Intact, Oriented x 3 Assessment /Plan Problems (1) Hydronephrosis Status: Chronic Response to Treatment: Stable Problem Text: burns placed on admission will need urology consult after dischar ge. (2) Third degree AV block Status: Acute Problem Specific Plan: Consult Specialist Problem Text: 11/15 - s/p Pacemaker / Pacemaker placed. Patient asymptomatic at this time. Continue to hold potential bradycardia medications. Will need cardiac rehab. Continue to work with PT at this time. 11/12/18 Third degree AV block. Asystole for 6 sec. several syncope episode as well as minor seizure episode likely / to ischemic from third degree Av block. S/p pacemaker placement. Now RRR. Pt asymptomatic. Cont to monitor pt on tele (3) Acute kidney injury superimposed on CKD Status: Acute Response to Treatment: Improving Problem Specific Plan: Monitor Clinically, Repeat Labs Problem Text: 11/16 - continues to improve - nephrology following 11/15 - improved with burns placement and holding PRAVIN and Chlorthalidone 11/14 Nephrology consulted at this time. Appreciate their assistance in management of this patient. Creatinine continues to trend down. Patient continues to urinate with burns catheter. Repeat lab tomorrow. 2 PMH of CKD. Creatinine 5.14 today with baseline creat at 2, improving. Hyponatremia resolved. Hyperkalemia at 5.6 with hyperphosphoretemia at 8.0. Pt has PMH of nonspecific urinary incontinence. Based on what patient describes, likely overflow incontinence 2/2 BPH. Cont Finasteride and Flomax. CT abd showed b/l chronic moderate hydronephrosis likely 2/2 to urinary retention. Cont burns catheter. Pt tolerating PO oral fluid well thus will not start IVF at this time as part of KOBE may be contributed to renal ischemia from AV block. Nephrology is following, and we appreciate their input. Cont to follow up renal profile. Cont I&O (4) Low back pain Problem Text: Patient has had some low back pain since falls prior to ad mission. Has some discomfort to palpation, has been improving since admission. Ordering lumbosacral radiograph to evaluate for possible fracture. (5) Right knee pain Problem Text: Developed some pain after falls prior to admission. Ordering radiograph to evaluate for possible fracture. (6) Diabetes mellitus Status: Chronic Problem Text: 2/4 Continue insulin with sliding scale at this time. Monitor glucose. 2/2 PMH of DM type 2. Hold home medication Jardiance and insulin Glargine. Insulin sliding scale. Pt had few episodes of hypoglycemia with trough to the 40s. Most recent POC 90s. Hypoglycemia protocol. Consider starting D5 if pt continues to have episodes of hypoglycemia. POC as scheduled; cont to monitor pt (7) Hypertension Status: Chronic Response to Treatment: Stable Problem Text: Continue norvasc 10 mg daily. Hold renal affecting medications for decreased renal function. Monitor BP. (8) BPH (benign prostatic hyperplasia) Status: Chronic Problem Specific Plan: Monitor Clinically Problem Text: BPH on Tamsulosin and Finasterid. Cont to monitor pt. Urinary retention; pt stated that he has uncontrolled urination at home and wears a pull-up at home. Stated that he has not been able to urinate since admission. CT abdomen showed b/l chronic mod hydronephrosis. Cont to monitor (9) Hydrocephalus in adult Status: Chronic Response to Treatment: Stable Problem Text: PMH of hydrocephalus. Sp CONTINUITY READER shunt. Stable (10) UTI (urinary tract infection) Status: Acute Problem Specific Plan: Monitor Clinically Problem Text: Urine culture negative. (11) Hyperkalemia Status: Resolved Problem Specific Plan: Consult Specialist, Repeat Labs Problem Text: Repeat lab tomorrow. Plan/VTE VTE Prophylaxis Ordered?: Yes (TEDS and SCD) Plan/Urinary Catheter Urinary Catheter: Place Burns Plan Diet: Continue Current Activity: Continue Current Therapy: PT, OT Diagnostics: Check Labs, Repeat Labs in AM, Obtain Cultures Disposition awaiting ARU eval - D/C to ARU vs home with services VS, [facility]&O[facility] Vital Signs/I&O Vital Signs Date Time Temp Pulse Resp B/P (MAP) Pulse Ox O2 Delivery O2 Flow Rate FiO2 11/16/18 16:00 97.6 89 17 139/65 (89) 96 11/12/18 04:00 3.0 11/11/18 20:25 Nasal Cannula I&O- Last 24 Hours up to 6 AM 11/16/18 06:00 Intake Total 960 ml Output Total 4100 ml Balance -3140 ml Laboratory Data 24H LABS Laboratory Tests 2 11/15/18 20:51: Bedside Glucose (Misc Panel) 156H 11/16/18 05:44: Nucleated Red Blood Cells % (auto) 0.0, Blood Urea Nitrogen 64H, Creatinine 2.24H, Sodium Level 139, Potassium Level 4.5, Chloride Level 110H, Carbon Dioxide Level 21, Anion Gap 8, Glomerular Filtration Rate 30.5L, Calcium Level 8.8, Phosphorus Level 3.0, Albumin 3.3 11/16/18 11:48: Bedside Glucose (Misc Panel) 158H 11/16/18 17:04: Bedside Glucose (Misc Panel) 170H CBC/BMP Laboratory Tests 11/16/18 05:44 Red Blood Count 5.70, Mean Corpuscular Volume 84.4, Mean Corpuscular Hemoglobin 27.5, Mean Corpuscular Hemoglobin Concent 32.6, Red Cell Distribution Width 15.1 H, Anion Gap 8 Microbiology Microbiology 11/11/18 Urine Culture - Final, Complete VESTA MARMOLEJO PA-C Nov 16, 2018 17:38
[2018-11-16 20:00] VITALS: BP 144/86
[2018-11-16] MEDS: ATORVASTATIN 20 MG TAB PO SCH (20:04)
[2018-11-16] MEDS: FINASTERIDE 5 MG TAB PO SCH (20:04)
[2018-11-17] VITALS: BP 149/76
[2018-11-17 04:00] VITALS: BP 143/93
[2018-11-17] MEDS: SLF 3 ML SYR IV SCH (05:39)
[2018-11-17 06:02] LABS: HEMATOCRIT 48.8 % (42.0-52.0); HEMOGLOBIN 15.5 g/dl (13.5-17.5); MEAN CORPUSCULAR HEMOGLOBIN 27.1 pg (27.0-33.0); MEAN CORPUSCULAR HGB CONC 31.8 g/dl (32.0-36.5); MEAN CORPUSCULAR VOLUME 85.2 fl (80.0-96.0); PLATELET COUNT, AUTOMATED 247 10^3/uL (150-450); RED BLOOD COUNT 5.73 10^6/uL (4.30-6.10); WHITE BLOOD COUNT 13.9 10^3/uL (4.0-10.0)
[2018-11-17 06:29] LABS: ALBUMIN 3.2 GM/DL (3.2-5.2); CALCIUM LEVEL 9.1 MG/DL (8.8-10.2); CREATININE FOR GFR 2.22 MG/DL (0.70-1.30); GLOMERULAR FILTRATION RATE 30.8 (>42); PHOSPHORUS LEVEL 3.1 MG/DL (2.5-4.9); POTASSIUM SERUM 4.2 MEQ/L (3.5-5.1)
[2018-11-17 08:00] VITALS: BP 139/66
[2018-11-17 09:14] VITALS: BP 139/66
[2018-11-17] MEDS: amLODIPine 10 MG TAB PO SCH (09:14)
[2018-11-17] MEDS: ASPIRIN 81 MG ENTERIC TAB PO SCH (09:14)
[2018-11-17] MEDS: TAMSULOSIN 0.4 MG CAP PO SCH (09:14)
[2018-11-17] MEDS: HumaLOG INSULIN (NovoLOG) PER UNIT SC SCH (09:15)
[2018-11-17] MEDS: HEPARIN SOD (PORCINE) 5000 UNITS/ML VIAL SQ SCH (09:15)
[2018-11-17] MEDS ORDERED: INSUHUMDS SC ×2 (10:07)
[2018-11-17] MEDS ORDERED: PEG1POW PO (10:07)
--- NOTE | 2018-11-17 10:24 | IPN ---
DATE OF SERVICE: 11/16/2018 SUBJECTIVE: The patient was seen and examined at the bedside today morning. The patient is afebrile and hemodynamically stable. He is still reporting that he is feeling weak. His renal function continues to improve. Creatinine is down to 2.2 today. OBJECTIVE: VITAL SIGNS: Temperature 97.4 degrees Fahrenheit, blood pressure 139/74, pulse is 96, respiratory rate of 18, saturating 98% on room air. INTAKE AND OUTPUT: Urine output recorded as 2.5 liters yesterday, 2.9 liters so far today since overnight. Weight on the bed scale is 120.3 kg. PHYSICAL EXAMINATION: GENERAL: The patient is awake, alert and oriented times three, sitting up in the bed, in no apparent distress. HEAD AND NECK EXAM: Extraocular muscles are intact. Pupils are equal, round and reactive to light. Mucous membranes are moist. NECK: Supple. There is no jugular venous distention (JVD). CARDIOVASCULAR: S1 and S2. Regular rate. Left sided pacemaker is noted. RESPIRATORY: Chest is clear to auscultation bilaterally. Bilateral equal air entry. No rales or rhonchi. ABDOMEN: Soft, obese. Positive bowel sounds. Nontender. MUSCULOSKELETAL: No clubbing or cyanosis. Pulses are 2+. GENITOURINARY: He has an indwelling Graf catheter. 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 Power is 5/5 in all extremities. LABORATORY REVIEW: CBC showed a WBC of 13.9, hemoglobin is 15.7. BMP showed sodium 139, potassium 4.5, chloride 110, bicarbonate 21, BUN 64, creatinine is 2.2 and it was 2.3 yesterday, calcium 8.8, phosphorous is 3. CURRENT INPATIENT MEDICATIONS: The patient's medications were all reviewed by me. There is no change in the medications today as compared with yesterday. ASSESSMENT AND PLAN: 1. Acute kidney renal failure superimposed on chronic kidney disease stage 3. Renal function continues to improve. Creatinine is down to 2.2. Volume status is optimized. 2. Hypertension. Blood pressure is controlled at this point. Continue current dose of amlodipine. Avoid use of PRAVIN inhibitors at this time. 3. Chronic bilateral hydronephrosis. Continue Proscar and Flomax at this point. Continue the indwelling Graf catheter. Voiding trial can be done after his renal function improves back to the baseline with a creatinine of 2.
--- NOTE | 2018-11-17 16:42 | DSES ---
DATE OF ADMISSION: 11/11/2018 DATE OF DISCHARGE: 11/17/2018 BRIEF HISTORY AND PHYSICAL: The patient is a 78-year-old patient of Dr. Grijalva, who was found to be in third-degree atrioventricular (AV) block and went into asystole with approximately 6 seconds and minor seizure activity, presented to the emergency room with recurrent syncopal events over the last couple of days. He spontaneously went into first-degree AV block with approximately 80 beats per minute. Was awake, alert, and oriented. Dr. He was consulted by the emergency room attending and was taken emergently for pacemaker placement. PAST MEDICAL HISTORY: Significant for: 1. Chronic kidney disease. 2. Diabetes. 3. Hypertension. 4. Hyperlipidemia. 5. BPH. 6. Gastroesophageal reflux disease. 7. Dementia. 8. Status post ventriculoperitoneal (CHEF FRENCH) shunt. PERTINENT LABORATORIES ON ADMISSION: White count 16, hemoglobin 15, platelets 262,000. Sodium 128, potassium 5.6, BUN 144, creatinine 6.58, glucose 99. Troponin 0.06. TSH 2.46. Chest x-ray showed no acute cardiopulmonary process. CT of the head showed no intracranial hemorrhage, infarct, or mass. CHEF FRENCH shunt in bilateral ventricles remained stable. CT of the abdomen and pelvis showed chronic moderate hydronephrosis bilaterally without nephro or urolithiasis or obstructing calculus. Stable bilateral renal cysts, sigmoid diverticula without acute diverticulitis. No further acute abdominal pelvic pathology appreciated. HOSPITAL COURSE: 1. The patient was admitted for complete heart block. Dr. He took him for pacemaker placement on 11/11/2018, and his recommendations are to avoid any reversible factors that may contribute to his complete heart block, including carvedilol, Aricept. His potassium was stopped due to the hyperkalemia. 2. Acute on chronic renal failure. The patient's angiotensin-converting enzyme (PRAVIN) inhibitor and chlorthalidone were held. He was given intravenous (IV) fluids. He had bilateral hydronephrosis, and so a Graf catheter was placed. His renal function has improved. At the time of discharge his BUN is 61, creatinine 2.2. His Graf catheter remains in place. We continue to encourage oral hydration, and his diuretics and PRAVIN inhibitor are on hold, and we should avoid use of PRAVIN and angiotensin receptor barbi (ARB) in the future. 3. Bilateral hydronephrosis. He remains on Proscar and Flomax as prior to admission. Graf catheter has been placed, and he will need a urologic evaluation. 4. Hypertension. His PRAVIN inhibitor and diuretics have all been held due to acute renal failure and hyperkalemia. Carvedilol was held due to third-degree heart block. His blood pressure shows fair control on amlodipine 10 mg daily. 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 5. Hyperkalemia on admission secondary to amiloride, potassium replacement, and acute renal failure with dehydration. Those were all held, including his PRAVIN inhibitor. His potassium has normalized, and he should not restart the potassium at this time. 6. Diabetes mellitus, type 2. He is normally on insulin and Jardiance, and those were all held on admission. He has been getting sliding-scale coverage. He will need to go back on his Lantus. The dose will need to be watched closely due to his renal function and adjust accordingly to achieve reasonable blood sugar control prior to discharge from the group home. 7. History of hydrocephalous. He has a CHEF FRENCH shunt. 8. Low back pain. He had multiple syncopal episodes prior to admission, so imaging, including right knee and back x-rays, were performed. He has some patellar spurring on the knee x-ray and degenerative changes on the lumbar x-rays but no fractures or compression fractures. He is on Tylenol for pain. DISPOSITION: He is stable for transfer to [facility] for subacute rehabilitation. Diet: No added salt. Activity as tolerated with a walker. He has a Graf catheter in place. MEDICATIONS: - sliding-scale insulin before meals and at bedtime - He will need his Lantus restarted and dose adjusted for blood sugar control in light of his renal insufficiency - MiraLax daily - amlodipine 10 mg daily - aspirin 81 mg daily - atorvastatin 40 mg daily - finasteride 5 mg at bedtime - memantine 10 mg twice a day - Flomax 0.4 mg twice a day His amiloride, carvedilol, chlorthalidone, Aricept, Jardiance, Lantus, lisinopril, and potassium are all on hold. Dr. He should follow his pacer and make the orders regarding staple removal and other pacer management. He has a Graf catheter and should have a urologic evaluation due to his BPH, hydronephrosis, and urinary retention, despite Proscar and Flomax. He will need his Lantus insulin restarted based on his blood sugars.
--- NOTE | 2018-11-18 08:59 | IPN ---
DATE OF SERVICE: 11/17/2018 SUBJECTIVE: Patient was seen and examined at the bedside today, morning. Patient is afebrile, hemodynamically stable. Renal function is improved to baseline. Creatinine is fluctuating at 2.2 now. Patient reports that he is getting ready to be discharged today. OBJECTIVE: VITAL SIGNS: Temperature is 98.3 degrees Fahrenheit. Blood pressure 139/66. Pulse is 90, respiratory rate of 18, saturating 97% on room air. INTAKE AND OUTPUT: Urine output recorded as 825 mL so far today, since overnight. Weight on the bed scale is 118.6 kg. PHYSICAL EXAMINATION: GENERAL: Patient is awake, alert, oriented times three, morbidly obese, sitting up in the bed, in no apparent distress. HEAD AND NECK EXAM: Extraocular muscles are intact. Pupils equally round and reactive to light. Mucous membranes are moist. NECK: Supple. There is no jugular venous distention (JVD). CARDIOVASCULAR: S1 and S2. Regular rate. Left-sided pacemaker is noted. No edema of the bilateral lower extremities. RESPIRATORY: Chest is clear to auscultation bilaterally. Bilateral equal air entry. No rales or rhonchi. ABDOMEN: Soft. Positive bowel sounds. Nontender. No organomegaly. GENITOURINARY: He has an indwelling Graf catheter. MUSCULOSKELETAL: No clubbing or cyanosis. 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 Power is 5/5 in bilateral upper extremities. LABORATORY REVIEW: CBC showed WBC 13.9, hemoglobin is 15.5, platelets are 247. BMP showed sodium 138, potassium 4.2, chloride 110, bicarbonate is 20, BUN 61, creatinine is 2.2, calcium 9.1, phosphorous is 3.1. CURRENT INPATIENT MEDICATIONS: Patient's medications were all reviewed by me. No change in the medications today as compared with yesterday. ASSESSMENT AND PLAN: 1. Acute renal failure superimposed on chronic kidney disease, stage III. Patient's renal function has improved close to the baseline. Creatinine is stable at 2.2 now. 2. Hypertension. Blood pressure is controlled. Continue current dose of amlodipine. Avoid use of angiotensin-converting enzyme (PRAVIN) inhibitors. 3. Chronic bilateral hydronephrosis. Patient has an indwelling Graf catheter. He can do the voiding trial as outpatient in urology office. Continue current dose of Proscar and Flomax. DISPOSITION: Patient is stable to be discharged from nephrology standpoint. He needs to followup with nephrology and urology as outpatient.
== END 2018-11-17 11:56 | DRG 242 ==
LOC: M ED 13:21 → EDBD 13:21 → M ED INP 16:03 → M ICU 20:38 → M PCU 11-13 17:31
PROVIDERS: ADMIT Internal Medicine Cardiovascular Disease; ATTEND Family Medicine
PROC: 02HK3JZ Insertion of Pacemaker Lead into Right Ventricle, Percutaneous Approach (ICD-10-PCS; 2018-11-11)
PROC: 02H63JZ Insertion of Pacemaker Lead into Right Atrium, Percutaneous Approach (ICD-10-PCS; 2018-11-11)
PROC: 0JH606Z Insertion of Pacemaker, Dual Chamber into Chest Subcutaneous Tissue and Fascia, Open Approach (ICD-10-PCS; principal; 2018-11-11 15:45)
DX: I44.2 Atrioventricular block, complete (principal); I46.2 Cardiac arrest due to underlying cardiac condition; E87.2 Acidosis; N17.9 Acute kidney failure, unspecified; E87.1 Hypo-osmolality and hyponatremia; N13.30 Unspecified hydronephrosis; G91.9 Hydrocephalus, unspecified; N39.0 Urinary tract infection, site not specified; N18.3 Chronic kidney disease, stage 3 (moderate); I12.9 Hypertensive chronic kidney disease with stage 1 through stage 4 chronic kidney disease, or unspecified chronic kidney disease; E87.5 Hyperkalemia; E11.9 Type 2 diabetes mellitus without complications; K21.9 Gastro-esophageal reflux disease without esophagitis; N40.0 Benign prostatic hyperplasia without lower urinary tract symptoms; F03.90 Unspecified dementia, unspecified severity, without behavioral disturbance, psychotic disturbance, mood disturbance, and anxiety; E86.0 Dehydration; Z98.2 Presence of cerebrospinal fluid drainage device; M51.86 Other intervertebral disc disorders, lumbar region; Z79.82 Long term (current) use of aspirin; Z79.899 Other long term (current) drug therapy; E78.5 Hyperlipidemia, unspecified; Z88.0 Allergy status to penicillin; Z91.038 Other insect allergy status

== ENCOUNTER → 2018-11-21 | Outpatient (REF) ==
[~2018-11-21] MED LIST changes: +AMIL25TA PO; +AMLO10TA5 PO; +ASPI1TAB PO; +ATOR40TA75 PO; +INSUHUMDS SC; +LISI10TA4 PO; +PEG1POW PO; +POTA10TA67 PO
[2018-11-21 08:20] LABS: ALBUMIN 3.4 GM/DL (3.2-5.2); CALCIUM LEVEL 9.2 MG/DL (8.8-10.2); CREATININE FOR GFR 2.26 MG/DL (0.70-1.30); GLOMERULAR FILTRATION RATE 30.2 (>42); PHOSPHORUS LEVEL 3.2 MG/DL (2.5-4.9); POTASSIUM SERUM 4.1 MEQ/L (3.5-5.1)
== END ==
LOC: SKLAB2 13:29
PROVIDERS: ATTEND Family Medicine
DX: R31.9 Hematuria, unspecified (principal); N40.1 Benign prostatic hyperplasia with lower urinary tract symptoms

== ENCOUNTER → 2018-11-28 | Outpatient (REF) ==
[2018-11-28 09:23] LABS: ALBUMIN 3.4 GM/DL (3.2-5.2); CREATININE FOR GFR 1.82 MG/DL (0.70-1.30); GLOMERULAR FILTRATION RATE 38.8 (>42); PHOSPHORUS LEVEL 2.7 MG/DL (2.5-4.9); POTASSIUM SERUM 3.9 MEQ/L (3.5-5.1)
== END ==
LOC: SKLAB2 07:00
PROVIDERS: ATTEND Family Medicine
DX: N40.1 Benign prostatic hyperplasia with lower urinary tract symptoms (principal)

== ENCOUNTER → 2018-12-05 | Outpatient (REF) ==
[2018-12-05 11:45] LABS: ALBUMIN 3.4 GM/DL (3.2-5.2); CALCIUM LEVEL 8.9 MG/DL (8.8-10.2); CREATININE FOR GFR 1.7 MG/DL (0.70-1.30); GLOMERULAR FILTRATION RATE 41.9 (>42); PHOSPHORUS LEVEL 2.6 MG/DL (2.5-4.9); POTASSIUM SERUM 4.4 MEQ/L (3.5-5.1)
== END ==
LOC: SKLAB2 09:05
PROVIDERS: ATTEND Family Medicine
DX: N40.1 Benign prostatic hyperplasia with lower urinary tract symptoms (principal)

== ENCOUNTER → 2018-12-12 | Outpatient (REF) ==
[2018-12-12 09:30] LABS: ALBUMIN 3.5 GM/DL (3.2-5.2); CALCIUM LEVEL 9.3 MG/DL (8.8-10.2); CREATININE FOR GFR 1.79 MG/DL (0.70-1.30); GLOMERULAR FILTRATION RATE 39.5 (>42); POTASSIUM SERUM 4.1 MEQ/L (3.5-5.1)
== END ==
LOC: SKLAB2 07:00
PROVIDERS: ATTEND Family Medicine
DX: N40.1 Benign prostatic hyperplasia with lower urinary tract symptoms (principal)

== ENCOUNTER → 2019-01-18 | Outpatient (CLI) | payer MEDICARE ==
[~2019-01-18] MED LIST changes: +ASPI-1 PO; -ASPI1TAB PO; -ASPI325T PO; +ASPI81TA26 PO; +CEFD300C41 PO; -CEFD300CAP PO; +GLYB-147 PO; -GLYB5TA PO; -NORC1TAB4 PO; +NORC1TAB7 PO
--- NOTE | 2019-01-18 16:56 | REP ---
URINARY BLADDER ULTRASOUND: Real-time sonographic evaluation of the urinary bladder was performed. Bladder is moderately distended measuring 11.8 x 7.0 x 6.3 cm. Total volume is 340 mL. Postvoid residual is 157 mL which is 46 percent of the original volume. Prostate is enlarged measuring 5.8 x 3.6 x 5.0 cm. There is mild diffuse thickening of the bladder wall with trabeculations. There is no definite bladder wall mass. No bladder calculus is seen. Electronically Signed by Carlos Alves MD 01/19/2019 08:34 P
== END ==
LOC: M RAD 13:34
PROVIDERS: ATTEND Family Medicine
DX: Z87.448 Personal history of other diseases of urinary system (principal); N32.89 Other specified disorders of bladder

== ENCOUNTER → 2019-02-15 | Outpatient (CLI) | payer MEDICARE ==
--- NOTE | 2019-02-15 15:51 | REP ---
RENAL AND BLADDER ULTRASOUND: Real-time sonographic evaluation of the kidneys performed. The right kidney is increased in echotexture with moderate to severe right hydronephrosis. It measures 13.9 x 11.2 x 5.9 cm. The left kidney is relatively normal in echotexture measuring 13.3 x 9.8 x 6.7 cm. There is moderate to severe left hydronephrosis as well. A cyst in the upper pole of the right kidney measures 2.3 x 1.7 x 2.4 cm. A cyst in the mid right kidney contains a septation measuring 2.1 x 1.4 x 1.7 cm. There appears to be a cyst in the upper pole of the left kidney 2 cm in diameter. Small echogenic foci in the left renal collecting system appeared to represent small calculi, largest measures 6 mm. The urinary bladder measures 13.2 x 8.2 x 6.4 cm for a total volume of 452 mL. Bladder wall is trabeculated and somewhat thickened with no discrete mass. Prostate is enlarged measuring 7.5 x 5.8 x 8.2 cm. There is a nodular contour of the superior aspect of the prostate impressing upon the base of the bladder. After attempts to void, the bladder volume increased to 463 mL. IMPRESSION: Moderate to severe bilateral hydronephrosis. Bilateral renal cysts. Subcentimeter intrarenal calculi left kidney. Enlarged prostate with diffuse trabeculation and thickening of the bladder wall. There is impression upon the base of the bladder by the enlarged nodular prostate gland. After attempts to void, bladder volume increased from about 452 mL to about 463 mL. Electronically Signed by Carlos Alves MD 02/15/2019 04:11 P
== END ==
LOC: M RAD 13:45
PROVIDERS: ATTEND Nurse Practitioner Family
DX: N13.30 Unspecified hydronephrosis (principal); Q61.02 Congenital multiple renal cysts; N40.1 Benign prostatic hyperplasia with lower urinary tract symptoms

== ENCOUNTER → 2019-03-21 | Outpatient (CLI) | payer MEDICARE ==
--- NOTE | 2019-03-21 17:21 | REP ---
Urinary tract sonography: History: Urinary retention. Comparison sonography is from February 15, 2019. Comparison CT study November 12, 2018. Sonographic findings: Scanning at the level of the urinary bladder demonstrates an empty urinary bladder containing a Graf catheter. Renal cortical echogenicity pattern is normal and renal contours are smooth bilaterally. There is quite mild bilateral hydronephrosis much improved from the prior scan. There is a cyst in the upper pole right kidney measuring 2.4 cm and another 1.5 cm in diameter. There is a cyst in the upper pole left kidney measuring 3.0 cm in greatest diameter. Right kidney measures 13.5 x 6.0 x 6.3 cm. Left renal dimensions are 13.9 x 4.5 x 5.6 cm. Impression: Mild, bilaterally improved hydronephrosis. Small bilateral renal cysts. Electronically Signed by Tyrese Yoon MD 03/21/2019 09:14 P
== END ==
LOC: M RAD 14:16
PROVIDERS: ATTEND Nurse Practitioner Family
DX: N28.1 Cyst of kidney, acquired (principal); N13.39 Other hydronephrosis

== ENCOUNTER → 2019-04-12 | Outpatient (CLI) | payer MEDICARE ==
--- NOTE | 2019-04-12 16:37 | REP ---
HISTORY: TIA. COMPARISON: Multiple, the latest 11/11/2018. 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 There is ventriculomegaly which is unchanged. The degree of sulcation is also unchanged. There are no acute extra-axial fluid collections. There is no shift of the midline structures. There is no change in the appearance of the deep cerebral white matter. There is no evidence of an acute intracranial hemorrhagic or nonhemorrhagic event. The posterior fossa is stable. There is no acute skull fracture. There is mucosal thickening in the sphenoid sinuses, status quo. IMPRESSION: No significant change from 11/11/2018. No evidence of acute intracranial pathology. Electronically Signed by David Gloria DO 04/24/2019 04:23 P
== END ==
LOC: M RAD 10:29
PROVIDERS: ATTEND Physician Assistant Medical
DX: G45.8 Other transient cerebral ischemic attacks and related syndromes (principal); F02.80 Dementia in other diseases classified elsewhere, unspecified severity, without behavioral disturbance, psychotic disturbance, mood disturbance, and anxiety; G91.2 (Idiopathic) normal pressure hydrocephalus

== ENCOUNTER → 2019-04-19 | Outpatient (REF) | payer MEDICARE ==
[~2019-04-19] MED LIST changes: +FURO40TA2 PO; +LATA0.0015 OU; +MULTCAP PO
[2019-04-19 19:53] LABS: HEMOGLOBIN A1c 7.9 %
== END ==
LOC: M SFHCADAM 15:09
PROVIDERS: ATTEND Physician Assistant Medical
DX: E11.69 Type 2 diabetes mellitus with other specified complication (principal)
CPT/HCPCS: 83036; G0463

== ENCOUNTER → 2019-05-04 | Outpatient (CLI) | payer MEDICARE ==
[~2019-05-04] MED LIST changes: -FURO40TA2 PO; -LATA0.0015 OU; -MULTCAP PO
--- NOTE | 2019-05-04 13:55 | REP ---
PA and lateral chest: Comparison is 11/12/2018. The lung ramirez are clear. The cardiac size is normal. The tahir, mediastinum, and skeletal structures are unremarkable. There is a dual-chamber pacemaker entering from left, unchanged. Impression: Negative PA and lateral chest. Electronically Signed by Carlos Boyle MD 05/04/2019 01:46 P
== END ==
LOC: M ADAMS 11:06
PROVIDERS: ATTEND Urology
DX: Z01.818 Encounter for other preprocedural examination (principal); N40.1 Benign prostatic hyperplasia with lower urinary tract symptoms; N39.0 Urinary tract infection, site not specified; Z95.0 Presence of cardiac pacemaker

== ENCOUNTER → 2019-05-04 | Outpatient (REF) | payer MEDICARE ==
[2019-05-04 14:41] LABS: HEMATOCRIT 54.1 % (42.0-52.0); HEMOGLOBIN 17.5 g/dl (13.5-17.5); MEAN CORPUSCULAR HEMOGLOBIN 27.1 pg (27.0-33.0); MEAN CORPUSCULAR HGB CONC 32.3 g/dl (32.0-36.5); MEAN CORPUSCULAR VOLUME 83.9 fl (80.0-96.0); PLATELET COUNT, AUTOMATED 247 10^3/uL (150-450); RED BLOOD COUNT 6.45 10^6/uL (4.30-6.10); WHITE BLOOD COUNT 11.8 10^3/uL (4.0-10.0)
[2019-05-04 14:57] LABS: INR 0.98; PROTHROMBIN TIME 12.7 SECONDS (11.8-14.0)
[2019-05-04 14:58] LABS: PARTIAL THROMBOPLASTIN TIME 27.5 SECONDS (25.0-38.4)
[2019-05-04 15:01] LABS: CALCIUM LEVEL 9.8 MG/DL (8.8-10.2); CREATININE FOR GFR 1.94 MG/DL (0.70-1.30); GLOMERULAR FILTRATION RATE 35.9 (>42); POTASSIUM SERUM 4.2 MEQ/L (3.5-5.1)
== END ==
LOC: M LABSMT 11:04 → M SFHCADAM 11:36
PROVIDERS: ATTEND Urology
DX: Z01.818 Encounter for other preprocedural examination (principal); N40.1 Benign prostatic hyperplasia with lower urinary tract symptoms; N39.0 Urinary tract infection, site not specified

== ENCOUNTER → 2019-05-18 | Outpatient (CLI) | payer MEDICARE ==
[~2019-05-18] MED LIST changes: +FURO40TA2 PO; +LATA0.0015 OU; +MEMA10TA19 PO; -MEMA1TAB2 PO; +MULTCAP PO; -OMEP40CA2 PO; +OMEP40CA97 PO; +SULF1TAB93 PO
--- NOTE | 2019-05-18 15:39 | REP ---
CT HEAD WITHOUT CONTRAST: HISTORY: TIA. COMPARISON: 04/12/2019 There is no intraparenchymal hemorrhage, mass or midline shift. There is mild dilatation of the ventricles that is unchanged compared to the previous study. A shunt is present in the body of the left lateral ventricle. The cortical sulci are dilated consistent with minimal __volume loss_. There is no extracerebral collection. Mucosal thickening is present in the left sphenoid sinus. IMPRESSION: 1. Minimal volume loss. 2. A shunt is present in the left lateral ventricle. There is mild dilatation of the ventricles unchanged compared to the previous study. Electronically Signed by Benito Sullivan MD 05/18/2019 04:39 P
--- NOTE | 2019-05-18 15:50 | REP ---
SHUNT SERIES, 11 VIEWS: HISTORY: Brain shunt. COMPARISON: 05/12/2017 A shunt is present with its tip in the region of the bodies of the lateral ventricles. The distal tip of the shunt is present in the left lateral abdomen. There is no definite shunt discontinuity. IMPRESSION: There is no shunt discontinuity. Electronically Signed by Benito Sullivan MD 05/18/2019 04:39 P
== END ==
LOC: M RAD 13:39
PROVIDERS: ATTEND Family Medicine
DX: Z98.2 Presence of cerebrospinal fluid drainage device (principal); Z86.73 Personal history of transient ischemic attack (TIA), and cerebral infarction without residual deficits

== ENCOUNTER → 2019-05-19 | Outpatient (REF) | payer MEDICARE ==
[~2019-05-19] MED LIST changes: -MEMA10TA19 PO; +MEMA1TAB2 PO; +OMEP40CA2 PO; -OMEP40CA97 PO; -SULF1TAB93 PO
== END ==
LOC: M SMT 13:31
PROVIDERS: ATTEND Urology
DX: Z01.818 Encounter for other preprocedural examination (principal); N40.1 Benign prostatic hyperplasia with lower urinary tract symptoms; N39.0 Urinary tract infection, site not specified

== ENCOUNTER → 2019-06-16 | Outpatient (REF) | payer MEDICARE ==
[~2019-06-16] MED LIST changes: +SULF1TAB93 PO
[2019-06-16 19:05] LABS: APPEARANCE, URINE TURBID (CLEAR); BACTERIA, URINE AUTO 3+ (NEGATIVE); BILIRUBIN, URINE AUTO NEGATIVE (NEGATIVE); BLOOD, URINE BLOOD 3+ (NEGATIVE); COLOR, URINE YELLOW (YELLOW); GLUCOSE, URINE (UA) AUTO 1+ mg/dL (NEGATIVE); KETONE, URINE AUTO NEGATIVE (NEGATIVE); LEUKOCYTE ESTERASE, URINE AUTO 3+ (NEGATIVE); NITRITE, URINE AUTO NEGATIVE (NEGATIVE); PROTEIN, URINE AUTO 2+ mg/dL (NEGATIVE); RBC, URINE AUTO TNTC /HPF (0-3); SPECIFIC GRAVITY URINE AUTO 1.015 (1.002-1.035); SQUAMOUS EPITHELIAL CELL UR AU 1 /HPF (0-6); UROBILINOGEN, URINE AUTO 0.2 mg/dL (0.0-2.0); WBC, URINE AUTO TNTC /HPF (0-3)
== END ==
LOC: M SMT 16:54
PROVIDERS: ATTEND Urology
DX: R33.9 Retention of urine, unspecified (principal)
CPT/HCPCS: 51703; 81001; 87088; 87186; G0463

== ENCOUNTER 2019-06-26 12:19 | Day surgery (SDC) | payer MEDICARE ==
[~2019-06-26] VITALS: Ht 177.8 cm; Wt 121.6 kg
[~2019-06-26 12:19] MED LIST changes: +LR 1,000 ML IV ONE; +LevoFLOXacin IV 500 MG in APPROPRIATE DILUENT 1 EA IV ONE; -SULF1TAB93 PO
[2019-06-26] MEDS ORDERED: SULF1TAB93 PO (13:01)
[2019-06-26] MEDS ORDERED: SUGAMMADEX SODIUM 500 MG/5 ML VIAL (BRIDION) As Ordered ONE (15:17)
[2019-06-26] MEDS ORDERED: METOCLOPRAMIDE INJ 10MG/2ML VIAL (J2765) As Ordered ONE (15:17)
[2019-06-26] MEDS ORDERED: MIDAZOLAM INJ 2 MG/2 ML VIAL (J2250) As Ordered ONE (15:17)
[2019-06-26] MEDS ORDERED: fentaNYL 100 MCG/2 ML INJECTION (J3010) As Ordered ONE ×3 (15:17→17:22)
[2019-06-26] MEDS ORDERED: LIDOCAINE 2% INJ 100 MG/5 ML SDV (FOR ANES.) As Ordered ONE (15:17)
[2019-06-26] MEDS ORDERED: PROPOFOL 200 MG/20 ML VIAL As Ordered ONE (15:17)
[2019-06-26] MEDS ORDERED: ONDANSETRON 4MG/2ML VIAL (J2405) As Ordered ONE (15:17)
[2019-06-26] MEDS ORDERED: dexameTHASONE 4 MG/ML 1ML VIAL (J1100) As Ordered ONE (15:17)
[2019-06-26] MEDS ORDERED: ROCURONIUM BROMIDE 50 MG/5 ML VIAL As Ordered ONE ×3 (15:17→17:16)
[2019-06-26] MEDS ORDERED: ACETAMINOPHEN 1000MG 100ML IV BTL (OFIRMEV) (J0131 PER 10MG) As Ordered ONE (15:34)
[2019-06-26] MEDS ORDERED: FUROSEMIDE 100 MG/10 ML VIAL (J1940) As Ordered ONE (17:19)
[2019-06-26] MEDS ORDERED: LR 1,000 ML IV SCH (18:15)
[2019-06-26] MEDS ORDERED: fentaNYL 100 MCG/2 ML INJECTION (J3010) IV PRN (18:15)
[2019-06-26] MEDS ORDERED: ONDANSETRON 4MG/2ML VIAL (J2405) IV PRN (18:15)
[2019-06-26] MEDS ORDERED: PERCOCET 5MG/325MG TAB PO PRN (18:15)
[2019-06-26] MEDS ORDERED: ACETAMINOPHEN TAB 650MG DOSE (2X325MG) PO PRN (18:15)
[2019-06-26 20:00] VITALS: BP 149/65
--- NOTE | 2019-06-27 12:31 | RO ---
DATE OF PROCEDURE: 06/26/2019 PREPROCEDURE DIAGNOSIS: Benign prostatic hyperplasia with urinary retention. POSTPROCEDURE DIAGNOSIS: Benign prostatic hyperplasia with urinary retention. PROCEDURE: Cystoscopy, button transurethral electrovaporization of the prostate. SURGEON: Josué Arnett MD DIRECTOR OF EDUCATION: None. ANESTHESIA: General. OPERATIVE INDICATIONS: This is a 79-year-old male with benign prostatic hyperplasia with urinary retention. He was brought to the operating room today for the above listed procedure. DESCRIPTION OF PROCEDURE: The patient was brought to the operating room where general anesthesia was induced. Prophylactic antibiotics were infused. He was then placed in the dorsal lithotomy position and prepped and draped in the usual sterile fashion. At this point, a resectoscope was inserted into the urethral meatus and advanced into the bladder using a visual digester operator. Once inside the bladder, of note, the patient had trilobar benign prostatic hyperplasia with a very large median lobe. I noted the location of both ureteral orifices, as well as the verumontanum. The ureteral orifices were not very close to the bladder neck. At this point, I began vaporizing hyperplastic tissue beginning on the median lobe and then circumferentially at the bladder neck. I vaporized hyperplastic tissue on both lateral lobes. I kept doing this until there was a clear channel established. Throughout the procedure. I made sure not to vaporize too close to the ureteral orifices or distal to the verumontanum. Once there was a clear channel, hemostasis was obtained using the coagulation current . Once satisfied with hemostasis, the resectoscope was removed and an #18 [place] Graf catheter was inserted into the bladder. The balloon was filled with 15 mL of sterile water and fluid drained light pink at the end of the procedure. The catheter was set to gravity drainage. This marked conclusion of the procedure. The patient was then taken out of dorsal lithotomy position, awakened from anesthesia and transported to the recovery room in stable condition. ESTIMATED BLOOD LOSS: 20 mL. COMPLICATIONS: None. SPECIMENS: None. PLAN: The patient will followup in the clinic in approximately 1 week for catheter removal and voiding trial. LORENZA
== END 2019-06-26 20:20 | disposition home or self-care (01) ==
LOC: M SDC 12:19
PROVIDERS: ATTEND Urology
DX: N40.1 Benign prostatic hyperplasia with lower urinary tract symptoms (principal); I10 Essential (primary) hypertension; E11.9 Type 2 diabetes mellitus without complications; E78.5 Hyperlipidemia, unspecified; Z79.4 Long term (current) use of insulin; Z91.030 Bee allergy status; Z88.0 Allergy status to penicillin; Z86.73 Personal history of transient ischemic attack (TIA), and cerebral infarction without residual deficits; Z79.82 Long term (current) use of aspirin; Z79.899 Other long term (current) drug therapy
CPT/HCPCS: 52601; J0131; J1100; J1940; J1956; J2250; J2405; J2765; J3010

== ENCOUNTER → 2019-07-18 | Outpatient (REF) | payer MEDICARE ==
[~2019-07-18] MED LIST changes: -LR 1,000 ML IV ONE; -LevoFLOXacin IV 500 MG in APPROPRIATE DILUENT 1 EA IV ONE; -OMEP40CA2 PO; +OMEP40CA97 PO; +SULF1TAB93 PO
[2019-07-18 13:55] LABS: AMORPHOUS SEDIMENT SMALL (NEGATIVE); APPEARANCE, URINE HAZY (CLEAR); BACTERIA, URINE AUTO 1+ (NEGATIVE); BILIRUBIN, URINE AUTO NEGATIVE (NEGATIVE); BLOOD, URINE BLOOD 3+ (NEGATIVE); COLOR, URINE YELLOW (YELLOW); GLUCOSE, URINE (UA) AUTO 2+ mg/dL (NEGATIVE); KETONE, URINE AUTO NEGATIVE (NEGATIVE); LEUKOCYTE ESTERASE, URINE AUTO 3+ (NEGATIVE); MUCUS, URINE SMALL (NEGATIVE); NITRITE, URINE AUTO NEGATIVE (NEGATIVE); PROTEIN, URINE AUTO 1+ mg/dL (NEGATIVE); RBC, URINE AUTO 62 /HPF (0-3); SPECIFIC GRAVITY URINE AUTO 1.009 (1.002-1.035); SQUAMOUS EPITHELIAL CELL UR AU 0 /HPF (0-6); UROBILINOGEN, URINE AUTO 0.2 mg/dL (0.0-2.0); WBC, URINE AUTO TNTC /HPF (0-3)
== END ==
LOC: M SMT 13:08
PROVIDERS: ATTEND Nurse Practitioner Family
DX: N40.1 Benign prostatic hyperplasia with lower urinary tract symptoms (principal)

== ENCOUNTER → 2019-07-19 | Outpatient (REF) | payer MEDICARE ==
[~2019-07-19] MED LIST changes: +OMEP40CA2 PO; -OMEP40CA97 PO
[2019-07-19 19:23] LABS: APPEARANCE, URINE CLOUDY (CLEAR); BACTERIA, URINE AUTO 1+ (NEGATIVE); BILIRUBIN, URINE AUTO NEGATIVE (NEGATIVE); BLOOD, URINE BLOOD 3+ (NEGATIVE); COLOR, URINE YELLOW (YELLOW); GLUCOSE, URINE (UA) AUTO 2+ mg/dL (NEGATIVE); KETONE, URINE AUTO NEGATIVE (NEGATIVE); LEUKOCYTE ESTERASE, URINE AUTO 3+ (NEGATIVE); MUCUS, URINE SMALL (NEGATIVE); NITRITE, URINE AUTO NEGATIVE (NEGATIVE); PROTEIN, URINE AUTO 1+ mg/dL (NEGATIVE); RBC, URINE AUTO 98 /HPF (0-3); SPECIFIC GRAVITY URINE AUTO 1.011 (1.002-1.035); SQUAMOUS EPITHELIAL CELL UR AU 0 /HPF (0-6); UROBILINOGEN, URINE AUTO 0.2 mg/dL (0.0-2.0); WBC, URINE AUTO TNTC /HPF (0-3)
== END ==
LOC: M SMT 16:50
PROVIDERS: ATTEND Nurse Practitioner Family
DX: R33.9 Retention of urine, unspecified (principal)

== ENCOUNTER → 2019-07-24 | Outpatient (REF) | payer MEDICARE ==
[~2019-07-24] MED LIST changes: -OMEP40CA2 PO; +OMEP40CA97 PO
[2019-07-24 18:23] LABS: APPEARANCE, URINE TURBID (CLEAR); BACTERIA, URINE AUTO NEGATIVE (NEGATIVE); BILIRUBIN, URINE AUTO NEGATIVE (NEGATIVE); BLOOD, URINE BLOOD 3+ (NEGATIVE); COLOR, URINE YELLOW (YELLOW); GLUCOSE, URINE (UA) AUTO 3+ mg/dL (NEGATIVE); KETONE, URINE AUTO NEGATIVE (NEGATIVE); LEUKOCYTE ESTERASE, URINE AUTO 3+ (NEGATIVE); MUCUS, URINE LARGE (NEGATIVE); NITRITE, URINE AUTO NEGATIVE (NEGATIVE); PROTEIN, URINE AUTO 2+ mg/dL (NEGATIVE); RBC, URINE AUTO TNTC /HPF (0-3); SPECIFIC GRAVITY URINE AUTO 1.014 (1.002-1.035); SQUAMOUS EPITHELIAL CELL UR AU 0 /HPF (0-6); UROBILINOGEN, URINE AUTO 0.2 mg/dL (0.0-2.0); WBC, URINE AUTO TNTC /HPF (0-3)
== END ==
LOC: M SMT 16:55
PROVIDERS: ATTEND Nurse Practitioner Family
DX: R32 Unspecified urinary incontinence (principal)

== ENCOUNTER → 2019-09-18 | Outpatient (REF) | payer MEDICARE ==
[~2019-09-18] MED LIST changes: +MEMA10TA19 PO; -MEMA1TAB2 PO
[2019-09-18 13:53] LABS: APPEARANCE, URINE CLOUDY (CLEAR); BACTERIA, URINE AUTO 3+ (NEGATIVE); BILIRUBIN, URINE AUTO NEGATIVE (NEGATIVE); BLOOD, URINE BLOOD 1+ (NEGATIVE); COLOR, URINE YELLOW (YELLOW); GLUCOSE, URINE (UA) AUTO 1+ mg/dL (NEGATIVE); KETONE, URINE AUTO NEGATIVE (NEGATIVE); LEUKOCYTE ESTERASE, URINE AUTO 3+ (NEGATIVE); MUCUS, URINE MODERATE (NEGATIVE); NITRITE, URINE AUTO NEGATIVE (NEGATIVE); PROTEIN, URINE AUTO 2+ mg/dL (NEGATIVE); RBC, URINE AUTO 13 /HPF (0-3); SPECIFIC GRAVITY URINE AUTO 1.016 (1.002-1.035); SQUAMOUS EPITHELIAL CELL UR AU 2 /HPF (0-6); UROBILINOGEN, URINE AUTO 0.2 mg/dL (0.0-2.0); WBC, URINE AUTO TNTC /HPF (0-3)
== END ==
LOC: M SMT 13:23
PROVIDERS: ATTEND Nurse Practitioner Family
DX: R32 Unspecified urinary incontinence (principal)
CPT/HCPCS: 51798; 81001; 87088; G0463

== ENCOUNTER → 2019-11-22 | Outpatient (REF) | payer MEDICARE ==
[2019-11-22 17:35] LABS: BASO # 0.1 10^3/uL (0.0-0.2); BASO % 0.7 % (0.0-1.0); EOS # 0.3 10^3/uL (0.0-0.5); EOS % 2.9 % (0.0-3.0); HEMATOCRIT 59.6 % (42.0-52.0); LYMPH # 2.6 10^3/uL (1.5-5.0); LYMPH % 23.4 % (24.0-44.0); MEAN CORPUSCULAR HEMOGLOBIN 26.5 pg (27.0-33.0); MEAN CORPUSCULAR HGB CONC 30.2 g/dl (32.0-36.5); MEAN CORPUSCULAR VOLUME 87.6 fl (80.0-96.0); MONO # 1.1 10^3/uL (0.0-0.8); MONO % 9.8 % (0.0-5.0); NEUTROPHILS % 62.8 % (36.0-66.0); PLATELET COUNT, AUTOMATED 225 10^3/uL (150-450); WHITE BLOOD COUNT 11.2 10^3/uL (4.0-10.0)
[2019-11-22 17:50] LABS: HEMOGLOBIN A1c 7.8 %
[2019-11-22 18:13] LABS: ALBUMIN 3.9 GM/DL (3.2-5.2); BILIRUBIN,TOTAL 0.3 MG/DL (0.2-1.0); CALCIUM LEVEL 9.6 MG/DL (8.8-10.2); CHOLESTEROL RISK RATIO 5.925 (<5); CREATININE FOR GFR 1.93 MG/DL (0.70-1.30); GLOMERULAR FILTRATION RATE 36.1 (>42); POTASSIUM SERUM 4.6 MEQ/L (3.5-5.1); THYROID STIMULATING HORMONE 2.34 uIU/ML (0.358-3.740); TOTAL PROTEIN 7.6 GM/DL (6.4-8.2)
[2019-11-22 18:36] LABS: CREATININE, URINE 79.7 MG/DL; MAU/CREAT RATIO 770.3 MCG/MG (0.0-30.0)
== END ==
LOC: M SFHCADAM 13:34
PROVIDERS: ATTEND Physician Assistant Medical
DX: I11.0 Hypertensive heart disease with heart failure (principal); I50.32 Chronic diastolic (congestive) heart failure; E11.22 Type 2 diabetes mellitus with diabetic chronic kidney disease

== ENCOUNTER → 2020-06-11 | Outpatient (REF) | payer MEDICARE ==
[~2020-06-11] MED LIST changes: -AMLO10TA5 PO; +AMLO1TAB24 PO; +AMLO1TAB25 PO; -AMLO5TAB6 PO
[2020-06-11 16:27] LABS: BILIRUBIN,TOTAL 0.5 MG/DL (0.2-1.0); CHOLESTEROL RISK RATIO 4.472 (<5); GLOMERULAR FILTRATION RATE 34.6 (>42); POTASSIUM SERUM 4.5 MEQ/L (3.5-5.1); TOTAL PROTEIN 7.8 GM/DL (6.4-8.2)
[2020-06-11 16:40] LABS: BASO # 0.1 10^3/uL (0.0-0.2); BASO % 0.7 % (0.0-1.0); EOS # 0.2 10^3/uL (0.0-0.5); EOS % 2.4 % (0.0-3.0); HEMOGLOBIN 18.2 g/dl (13.5-17.5); LYMPH # 2.1 10^3/uL (1.5-5.0); MEAN CORPUSCULAR HEMOGLOBIN 27.9 pg (27.0-33.0); MEAN CORPUSCULAR HGB CONC 31.9 g/dl (32.0-36.5); MEAN CORPUSCULAR VOLUME 87.3 fl (80.0-96.0); MONO # 0.9 10^3/uL (0.0-0.8); MONO % 9.5 % (0.0-5.0); NEUTROPHILS # 6.1 10^3/uL (1.5-8.5); NEUTROPHILS % 64.9 % (36.0-66.0); PLATELET COUNT, AUTOMATED 255 10^3/uL (150-450); RED BLOOD COUNT 6.53 10^6/uL (4.30-6.10); WHITE BLOOD COUNT 9.4 10^3/uL (4.0-10.0)
[2020-06-11 16:42] LABS: HEMOGLOBIN A1c 8.2 %
[2020-06-11 16:58] LABS: CREATININE, URINE < 13.0 MG/DL; MALB URINE SIEMENS 93.6 MG/L
== END ==
LOC: M LABDRWAD 14:22
PROVIDERS: ATTEND Physician Assistant Medical
DX: E11.22 Type 2 diabetes mellitus with diabetic chronic kidney disease (principal); N18.3 Chronic kidney disease, stage 3 (moderate)

== ENCOUNTER → 2021-03-24 | Outpatient (REF) | payer MEDICARE ==
[~2021-03-24] MED LIST changes: +BACTDSTA PO; -LISI-538 PO; +LISI10TA22 PO; -LISI10TA4 PO; +LISI20TA33 PO; -PEG1POW PO; +POLY17PO18 PO; -SULF1TAB93 PO
[2021-03-24 19:07] LABS: BILIRUBIN,TOTAL 0.6 MG/DL (0.2-1.0); CALCIUM LEVEL 9.5 MG/DL (8.8-10.2); CREATININE FOR GFR 2.07 MG/DL (0.70-1.30); GLOMERULAR FILTRATION RATE 33.1 (>42); POTASSIUM SERUM 4.5 MEQ/L (3.5-5.1)
[2021-03-24 19:08] LABS: ALBUMIN 3.8 GM/DL (3.2-5.2); CHOLESTEROL RISK RATIO 4.451 (<5); TOTAL PROTEIN 7.5 GM/DL (6.4-8.2)
== END ==
LOC: M LABDRWAD 18:23
PROVIDERS: ATTEND Physician Assistant
DX: E78.2 Mixed hyperlipidemia (principal)

== ENCOUNTER → 2021-03-28 | Outpatient (REF) | payer MEDICARE ==
[~2021-03-28] MED LIST changes: +OMEP40CA4 PO; -OMEP40CA97 PO
[2021-03-28 19:51] LABS: HEMOGLOBIN A1c 7.4 %
[2021-03-28 20:13] LABS: BASO # 0.1 10^3/uL (0.0-0.2); BASO % 0.7 % (0.0-1.0); EOS # 0.2 10^3/uL (0.0-0.5); EOS % 2.1 % (0.0-3.0); HEMATOCRIT 55.5 % (42.0-52.0); LYMPH # 2.8 10^3/uL (1.5-5.0); LYMPH % 24.4 % (24.0-44.0); MEAN CORPUSCULAR HEMOGLOBIN 28.1 pg (27.0-33.0); MEAN CORPUSCULAR HGB CONC 32.4 g/dl (32.0-36.5); MEAN CORPUSCULAR VOLUME 86.6 fl (80.0-96.0); MONO % 8.9 % (2.0-8.0); NEUTROPHILS # 7.1 10^3/uL (1.5-8.5); NEUTROPHILS % 63.3 % (36.0-66.0); PLATELET COUNT, AUTOMATED 235 10^3/uL (150-450); RED BLOOD COUNT 6.41 10^6/uL (4.30-6.10); WHITE BLOOD COUNT 11.3 10^3/uL (4.0-10.0)
[2021-03-28 20:28] LABS: CREATININE, URINE 92.8 MG/DL; MAU/CREAT RATIO 418.1 MCG/MG (0.0-30.0)
== END ==
LOC: M SFHCADAM 13:25
PROVIDERS: ATTEND Physician Assistant Medical
DX: E66.01 Morbid (severe) obesity due to excess calories (principal); E11.22 Type 2 diabetes mellitus with diabetic chronic kidney disease; N18.30 Chronic kidney disease, stage 3 unspecified

== ENCOUNTER 2021-05-22 10:02 | Inpatient (IN) | payer MEDICARE ==
[~2021-05-22] VITALS: Ht 177.8 cm; Wt 111.5 kg
[~2021-05-22 10:02] MED LIST changes: -TRAV04OPD OU; -VITMTA PO
[2021-05-22] MEDS ORDERED: ACETAMINOPHEN 325 MG TAB PO ONE ×2 (10:35→23:45)
[2021-05-22 10:53] LABS: BASO # 0.1 10^3/uL (0.0-0.2); BASO % 0.4 % (0.0-1.0); EOS % 0.1 % (0.0-3.0); HEMATOCRIT 52.6 % (42.0-52.0); LYMPH # 0.8 10^3/uL (1.5-5.0); LYMPH % 4.6 % (24.0-44.0); MEAN CORPUSCULAR HEMOGLOBIN 27.6 pg (27.0-33.0); MEAN CORPUSCULAR HGB CONC 32.3 g/dl (32.0-36.5); MEAN CORPUSCULAR VOLUME 85.4 fl (80.0-96.0); MONO # 1.2 10^3/uL (0.0-0.8); MONO % 6.6 % (2.0-8.0); NEUTROPHILS # 15.4 10^3/uL (1.5-8.5); NEUTROPHILS % 87.9 % (36.0-66.0); PLATELET COUNT, AUTOMATED 181 10^3/uL (150-450); RED BLOOD COUNT 6.16 10^6/uL (4.30-6.10); WHITE BLOOD COUNT 17.5 10^3/uL (4.0-10.0)
[2021-05-22] MEDS ORDERED: LevoFLOXacin IV 750 MG in IV 1 EA IV ONE (10:55)
[2021-05-22 11:29] LABS: ALBUMIN 3.6 GM/DL (3.2-5.2); BILIRUBIN,TOTAL 0.6 MG/DL (0.2-1.0); CALCIUM LEVEL 8.6 MG/DL (8.8-10.2); CREATININE FOR GFR 2.16 MG/DL (0.70-1.30); GLOMERULAR FILTRATION RATE 31.6 (>42); POTASSIUM SERUM 4.2 MEQ/L (3.5-5.1); TOTAL PROTEIN 6.8 GM/DL (6.4-8.2)
[2021-05-22] MEDS ORDERED: NS 1,000 ML IV SCH (12:20)
[2021-05-22] MEDS ORDERED: GLUCAGON INJ 1MG VIAL SC PRN (15:35)
[2021-05-22] MEDS ORDERED: GLUCOSE 4GM CHEW TABLET PO PRN (15:35)
[2021-05-22] MEDS ORDERED: DEXTROSE 50% 50 ML SYRINGE IV PRN (15:35)
[2021-05-22] MEDS ORDERED: VITMTA PO (15:46)
[2021-05-22] MEDS ORDERED: TRAV04OPD OU (15:46)
[2021-05-22] MEDS ORDERED: HOME MED LIST COMPLETE! XX SCH (15:50)
[2021-05-22] MEDS: HumaLOG INSULIN (NovoLOG) PER UNIT SC SCH ×2 (18:19→21:00)
[2021-05-22] MEDS: NS 1,000 ML IV SCH (18:33)
[2021-05-22] MEDS: FINASTERIDE 5 MG TAB PO SCH (21:05)
[2021-05-22] MEDS: TAMSULOSIN 0.4 MG CAP PO SCH (21:05)
[2021-05-22] MEDS: LATANOPROST 0.005% OPHTH SOLN 2.5 ML OU SCH (21:05)
[2021-05-22] MEDS: HEPARIN SOD (PORCINE) 5000UNITS/ML 1ML VIAL/SYRINGE SQ SCH (21:05)
[2021-05-22 22:00] VITALS: BP 122/67
[2021-05-22] MEDS: ACETAMINOPHEN TAB 650MG DOSE (2X325MG) PO PRN (22:23)
[2021-05-22 22:38] VITALS: BP 127/68
[2021-05-23 05:58] LABS: BASO # 0.1 10^3/uL (0.0-0.2); BASO % 0.3 % (0.0-1.0); HEMATOCRIT 53.5 % (42.0-52.0); HEMOGLOBIN 17.2 g/dl (13.5-17.5); LYMPH # 1.1 10^3/uL (1.5-5.0); LYMPH % 6.2 % (24.0-44.0); MEAN CORPUSCULAR HEMOGLOBIN 27.8 pg (27.0-33.0); MEAN CORPUSCULAR HGB CONC 32.1 g/dl (32.0-36.5); MEAN CORPUSCULAR VOLUME 86.4 fl (80.0-96.0); MONO # 1.4 10^3/uL (0.0-0.8); MONO % 7.5 % (2.0-8.0); NEUTROPHILS # 15.2 10^3/uL (1.5-8.5); NEUTROPHILS % 85.2 % (36.0-66.0); PLATELET COUNT, AUTOMATED 172 10^3/uL (150-450); RED BLOOD COUNT 6.19 10^6/uL (4.30-6.10); WHITE BLOOD COUNT 17.9 10^3/uL (4.0-10.0)
[2021-05-23 06:02] VITALS: BP 114/70
[2021-05-23 06:17] LABS: CALCIUM LEVEL 8.2 MG/DL (8.8-10.2); CREATININE FOR GFR 2.52 MG/DL (0.70-1.30); GLOMERULAR FILTRATION RATE 26.4 (>42); POTASSIUM SERUM 4.1 MEQ/L (3.5-5.1)
[2021-05-23] MEDS: NS 1,000 ML IV SCH ×2 (06:39→18:00)
[2021-05-23] MEDS: HumaLOG INSULIN (NovoLOG) PER UNIT SC SCH ×4 (07:30→21:00)
[2021-05-23] MEDS ORDERED: LEVEMIR (INSULIN DETEMIR) 1 UNITS/0.01ML SC SCH (09:00)
[2021-05-23] MEDS: TAMSULOSIN 0.4 MG CAP PO SCH ×2 (10:15→20:47)
[2021-05-23] MEDS: HEPARIN SOD (PORCINE) 5000UNITS/ML 1ML VIAL/SYRINGE SQ SCH ×2 (10:15→20:48)
[2021-05-23] MEDS: ASPIRIN 81MG ENTERIC TABLET PO SCH (10:15)
[2021-05-23] MEDS: ATORVASTATIN 20 MG TAB PO SCH (10:15)
[2021-05-23] MEDS: ACETAMINOPHEN TAB 650MG DOSE (2X325MG) PO PRN (10:16)
[2021-05-23] MEDS: LEVEMIR (INSULIN DETEMIR) 1 UNITS/0.01ML SC SCH (10:16)
[2021-05-23] MEDS: VANCOMYCIN HCL 1,000 MG, VIAL MATE ADAPTER 1 EACH in NS 250 ML IV SCH (10:17)
[2021-05-23] MEDS ORDERED: VANCOMYCIN HCL 1,000 MG, VIAL MATE ADAPTER 1 EACH in NS 250 ML IV ONE (11:00)
[2021-05-23] MEDS ORDERED: LevoFLOXacin IV 250 MG in IV 1 EA IV SCH (12:00)
[2021-05-23] MEDS: MEROPENEM INJ 1 GM in IV 1 EA IV SCH (12:33)
[2021-05-23 14:00] VITALS: BP 96/61
[2021-05-23] MEDS: FINASTERIDE 5 MG TAB PO SCH (20:47)
[2021-05-23] MEDS: LATANOPROST 0.005% OPHTH SOLN 2.5 ML OU SCH (20:47)
[2021-05-23 22:22] VITALS: BP 108/77
[2021-05-24] MEDS: MEROPENEM INJ 1 GM in IV 1 EA IV SCH (00:14)
[2021-05-24 06:09] VITALS: BP 107/76
[2021-05-24] MEDS: HumaLOG INSULIN (NovoLOG) PER UNIT SC SCH ×4 (07:44→20:41)
[2021-05-24 08:22] LABS: BASO # 0.1 10^3/uL (0.0-0.2); BASO % 0.4 % (0.0-1.0); EOS # 0.1 10^3/uL (0.0-0.5); EOS % 0.5 % (0.0-3.0); HEMATOCRIT 50.9 % (42.0-52.0); HEMOGLOBIN 16.7 g/dl (13.5-17.5); LYMPH # 1.4 10^3/uL (1.5-5.0); MEAN CORPUSCULAR HEMOGLOBIN 27.8 pg (27.0-33.0); MEAN CORPUSCULAR HGB CONC 32.8 g/dl (32.0-36.5); MEAN CORPUSCULAR VOLUME 84.7 fl (80.0-96.0); MONO # 1.8 10^3/uL (0.0-0.8); MONO % 14.1 % (2.0-8.0); NEUTROPHILS # 9.2 10^3/uL (1.5-8.5); NEUTROPHILS % 73.2 % (36.0-66.0); PLATELET COUNT, AUTOMATED 160 10^3/uL (150-450); RED BLOOD COUNT 6.01 10^6/uL (4.30-6.10)
[2021-05-24 08:49] LABS: WHITE BLOOD COUNT 12.6 10^3/uL (4.0-10.0)
[2021-05-24 09:04] VITALS: BP 118/75
[2021-05-24 09:06] LABS: CALCIUM LEVEL 8.7 MG/DL (8.8-10.2); CREATININE FOR GFR 2.05 MG/DL (0.70-1.30); GLOMERULAR FILTRATION RATE 33.5 (>42); VANCOMYCIN LEVEL TROUGH 8.4 UG/ML (10.0-20.0)
[2021-05-24] MEDS: ATORVASTATIN 20 MG TAB PO SCH (09:49)
[2021-05-24] MEDS: ASPIRIN 81MG ENTERIC TABLET PO SCH (09:49)
[2021-05-24] MEDS: TAMSULOSIN 0.4 MG CAP PO SCH ×2 (09:49→20:39)
[2021-05-24] MEDS: HEPARIN SOD (PORCINE) 5000UNITS/ML 1ML VIAL/SYRINGE SQ SCH ×2 (09:50→20:40)
[2021-05-24] MEDS: LEVEMIR (INSULIN DETEMIR) 1 UNITS/0.01ML SC SCH (09:50)
[2021-05-24] MEDS: VANCOMYCIN HCL 1,000 MG, VIAL MATE ADAPTER 1 EACH in NS 250 ML IV SCH (09:51)
[2021-05-24 13:39] VITALS: BP 122/75
[2021-05-24] MEDS: cefTRIAXone SOD 1 GM in D5W MINI-BAG PLUS 50 ML IV SCH (17:35)
[2021-05-24] MEDS: FINASTERIDE 5 MG TAB PO SCH (20:39)
[2021-05-24] MEDS: LATANOPROST 0.005% OPHTH SOLN 2.5 ML OU SCH (20:40)
[2021-05-24 22:00] VITALS: BP 142/80
[2021-05-25] MEDS: cefTRIAXone SOD 1 GM in D5W MINI-BAG PLUS 50 ML IV SCH ×2 (05:44→18:17)
[2021-05-25 06:00] VITALS: BP 148/80
[2021-05-25 06:21] LABS: BASO # 0.1 10^3/uL (0.0-0.2); BASO % 0.5 % (0.0-1.0); EOS # 0.1 10^3/uL (0.0-0.5); EOS % 0.9 % (0.0-3.0); HEMATOCRIT 50.9 % (42.0-52.0); HEMOGLOBIN 16.8 g/dl (13.5-17.5); LYMPH # 1.7 10^3/uL (1.5-5.0); LYMPH % 15.7 % (24.0-44.0); MEAN CORPUSCULAR HEMOGLOBIN 27.8 pg (27.0-33.0); MEAN CORPUSCULAR VOLUME 84.3 fl (80.0-96.0); MONO # 1.6 10^3/uL (0.0-0.8); MONO % 15.2 % (2.0-8.0); NEUTROPHILS # 7.2 10^3/uL (1.5-8.5); PLATELET COUNT, AUTOMATED 170 10^3/uL (150-450); RED BLOOD COUNT 6.04 10^6/uL (4.30-6.10)
[2021-05-25 06:28] LABS: WHITE BLOOD COUNT 10.7 10^3/uL (4.0-10.0)
[2021-05-25 06:51] LABS: CALCIUM LEVEL 8.6 MG/DL (8.8-10.2); CREATININE FOR GFR 1.69 MG/DL (0.70-1.30); GLOMERULAR FILTRATION RATE 41.9 (>42); POTASSIUM SERUM 3.9 MEQ/L (3.5-5.1)
[2021-05-25] MEDS: HumaLOG INSULIN (NovoLOG) PER UNIT SC SCH ×4 (08:22→21:00)
[2021-05-25] MEDS: LEVEMIR (INSULIN DETEMIR) 1 UNITS/0.01ML SC SCH (08:22)
[2021-05-25] MEDS: TAMSULOSIN 0.4 MG CAP PO SCH ×2 (08:23→21:07)
[2021-05-25] MEDS: ASPIRIN 81MG ENTERIC TABLET PO SCH (08:23)
[2021-05-25] MEDS: HEPARIN SOD (PORCINE) 5000UNITS/ML 1ML VIAL/SYRINGE SQ SCH ×2 (08:23→21:07)
[2021-05-25] MEDS: DOXYCYCLINE HYCLATE 100MG TABLET PO SCH ×2 (08:24→21:08)
[2021-05-25] MEDS: ATORVASTATIN 20 MG TAB PO SCH (08:24)
[2021-05-25] MEDS: FUROSEMIDE 40 MG TAB PO SCH (09:00)
[2021-05-25 14:00] VITALS: BP 153/74
[2021-05-25] MEDS ORDERED: QUEtiapine FUMARATE 25 MG TAB PO ONE (16:30)
[2021-05-25 20:00] VITALS: BP 170/94
[2021-05-25] MEDS: FINASTERIDE 5 MG TAB PO SCH (21:07)
[2021-05-25] MEDS: ACETAMINOPHEN TAB 650MG DOSE (2X325MG) PO PRN (21:07)
[2021-05-25] MEDS: LATANOPROST 0.005% OPHTH SOLN 2.5 ML OU SCH (21:08)
[2021-05-25 22:00] VITALS: BP 170/91
[2021-05-26] MEDS ORDERED: OLANZapine INTRAMUSCULAR 10MG VIAL IM PRN (02:20)
[2021-05-26 06:00] VITALS: BP 138/80
[2021-05-26] MEDS ORDERED: HALOPERIDOL 5MG/ML VIAL (J1630 PER 1) IM PRN (06:00)
[2021-05-26 06:18] LABS: BASO # 0.1 10^3/uL (0.0-0.2); BASO % 0.5 % (0.0-1.0); EOS # 0.1 10^3/uL (0.0-0.5); EOS % 0.8 % (0.0-3.0); HEMATOCRIT 50.4 % (42.0-52.0); HEMOGLOBIN 16.4 g/dl (13.5-17.5); LYMPH # 1.7 10^3/uL (1.5-5.0); LYMPH % 14.5 % (24.0-44.0); MEAN CORPUSCULAR HEMOGLOBIN 27.4 pg (27.0-33.0); MEAN CORPUSCULAR HGB CONC 32.5 g/dl (32.0-36.5); MEAN CORPUSCULAR VOLUME 84.1 fl (80.0-96.0); MONO # 1.8 10^3/uL (0.0-0.8); MONO % 15.1 % (2.0-8.0); NEUTROPHILS # 8.2 10^3/uL (1.5-8.5); NEUTROPHILS % 68.4 % (36.0-66.0); PLATELET COUNT, AUTOMATED 210 10^3/uL (150-450); RED BLOOD COUNT 5.99 10^6/uL (4.30-6.10)
[2021-05-26 06:31] LABS: CALCIUM LEVEL 8.6 MG/DL (8.8-10.2); CREATININE FOR GFR 1.73 MG/DL (0.70-1.30); GLOMERULAR FILTRATION RATE 40.8 (>42)
[2021-05-26] MEDS: cefTRIAXone SOD 1 GM in D5W MINI-BAG PLUS 50 ML IV SCH ×2 (06:57→17:13)
[2021-05-26] MEDS: LEVEMIR (INSULIN DETEMIR) 1 UNITS/0.01ML SC SCH (07:49)
[2021-05-26] MEDS: HumaLOG INSULIN (NovoLOG) PER UNIT SC SCH ×4 (07:49→21:00)
[2021-05-26] MEDS: LORazepam 2 MG/ML VIAL IV PRN ×2 (07:49→18:22)
[2021-05-26] MEDS: TAMSULOSIN 0.4 MG CAP PO SCH ×2 (07:50→22:12)
[2021-05-26] MEDS: ATORVASTATIN 20 MG TAB PO SCH (07:50)
[2021-05-26] MEDS: FUROSEMIDE 40 MG TAB PO SCH (07:50)
[2021-05-26] MEDS: DOXYCYCLINE HYCLATE 100MG TABLET PO SCH ×2 (07:50→22:13)
[2021-05-26] MEDS: ASPIRIN 81MG ENTERIC TABLET PO SCH (07:50)
[2021-05-26] MEDS: HEPARIN SOD (PORCINE) 5000UNITS/ML 1ML VIAL/SYRINGE SQ SCH ×2 (07:51→22:13)
[2021-05-26] MEDS ORDERED: OXAZEPAM 10 MG CAP PO SCH (09:00)
[2021-05-26 10:37] LABS: MAGNESIUM LEVEL 2.2 MG/DL (1.8-2.4)
[2021-05-26 10:54] LABS: FOLATE 16.1 NG/ML (>5.4)
[2021-05-26 14:00] VITALS: BP 147/83
[2021-05-26] MEDS: QUEtiapine FUMARATE 12.5 MG HALF-TAB PO SCH (17:13)
[2021-05-26 22:00] VITALS: BP 142/73
[2021-05-26] MEDS: FINASTERIDE 5 MG TAB PO SCH (22:12)
[2021-05-26] MEDS: LATANOPROST 0.005% OPHTH SOLN 2.5 ML OU SCH (22:13)
[2021-05-27] MEDS ORDERED: LORazepam 2 MG/ML VIAL As Ordered ONE ×2 (01:01→06:46)
[2021-05-27] MEDS: LORazepam 2 MG/ML VIAL IV PRN ×4 (01:05→19:09)
[2021-05-27] MEDS: cefTRIAXone SOD 1 GM in D5W MINI-BAG PLUS 50 ML IV SCH ×2 (05:31→18:03)
[2021-05-27 06:00] VITALS: BP 142/71
[2021-05-27 07:35] LABS: BASO # 0.1 10^3/uL (0.0-0.2); BASO % 0.7 % (0.0-1.0); EOS # 0.2 10^3/uL (0.0-0.5); EOS % 1.8 % (0.0-3.0); HEMATOCRIT 50.6 % (42.0-52.0); HEMOGLOBIN 16.4 g/dl (13.5-17.5); LYMPH # 2.1 10^3/uL (1.5-5.0); LYMPH % 16.7 % (24.0-44.0); MEAN CORPUSCULAR HEMOGLOBIN 27.6 pg (27.0-33.0); MEAN CORPUSCULAR HGB CONC 32.4 g/dl (32.0-36.5); MEAN CORPUSCULAR VOLUME 85.2 fl (80.0-96.0); MONO # 1.8 10^3/uL (0.0-0.8); MONO % 14.2 % (2.0-8.0); NEUTROPHILS # 8.4 10^3/uL (1.5-8.5); NEUTROPHILS % 65.4 % (36.0-66.0); PLATELET COUNT, AUTOMATED 237 10^3/uL (150-450); RED BLOOD COUNT 5.94 10^6/uL (4.30-6.10)
[2021-05-27 08:03] LABS: CALCIUM LEVEL 8.5 MG/DL (8.8-10.2); CREATININE FOR GFR 1.87 MG/DL (0.70-1.30); GLOMERULAR FILTRATION RATE 37.3 (>42); POTASSIUM SERUM 3.9 MEQ/L (3.5-5.1)
[2021-05-27 08:22] LABS: WHITE BLOOD COUNT 12.8 10^3/uL (4.0-10.0)
[2021-05-27] MEDS: HumaLOG INSULIN (NovoLOG) PER UNIT SC SCH ×4 (08:25→21:00)
[2021-05-27] MEDS: DOXYCYCLINE HYCLATE 100MG TABLET PO SCH ×2 (08:26→22:32)
[2021-05-27] MEDS: LEVEMIR (INSULIN DETEMIR) 1 UNITS/0.01ML SC SCH (08:26)
[2021-05-27] MEDS: QUEtiapine FUMARATE 12.5 MG HALF-TAB PO SCH ×2 (08:26→18:02)
[2021-05-27] MEDS: ATORVASTATIN 20 MG TAB PO SCH (08:26)
[2021-05-27] MEDS: ASPIRIN 81MG ENTERIC TABLET PO SCH (08:26)
[2021-05-27] MEDS: TAMSULOSIN 0.4 MG CAP PO SCH ×2 (08:26→22:33)
[2021-05-27] MEDS: HEPARIN SOD (PORCINE) 5000UNITS/ML 1ML VIAL/SYRINGE SQ SCH ×2 (08:27→22:33)
[2021-05-27 14:00] VITALS: BP 122/72
[2021-05-27 22:00] VITALS: BP 127/72
[2021-05-27] MEDS: FINASTERIDE 5 MG TAB PO SCH (22:32)
[2021-05-27] MEDS: ACETAMINOPHEN TAB 650MG DOSE (2X325MG) PO PRN (22:32)
[2021-05-27] MEDS: LATANOPROST 0.005% OPHTH SOLN 2.5 ML OU SCH (22:33)
[2021-05-28] MEDS: cefTRIAXone SOD 1 GM in D5W MINI-BAG PLUS 50 ML IV SCH ×2 (05:06→18:02)
[2021-05-28 06:00] VITALS: BP 137/74
[2021-05-28 06:13] LABS: BASO # 0.1 10^3/uL (0.0-0.2); EOS # 0.5 10^3/uL (0.0-0.5); EOS % 3.8 % (0.0-3.0); HEMATOCRIT 51.6 % (42.0-52.0); HEMOGLOBIN 16.5 g/dl (13.5-17.5); LYMPH # 1.9 10^3/uL (1.5-5.0); LYMPH % 16.4 % (24.0-44.0); MEAN CORPUSCULAR HEMOGLOBIN 27.8 pg (27.0-33.0); MONO # 1.5 10^3/uL (0.0-0.8); MONO % 12.8 % (2.0-8.0); NEUTROPHILS # 7.6 10^3/uL (1.5-8.5); NEUTROPHILS % 64.9 % (36.0-66.0); RED BLOOD COUNT 5.93 10^6/uL (4.30-6.10)
[2021-05-28 06:40] LABS: C REACTIVE PROTEIN QUANTITATIV 11.6 MG/DL (0.00-0.30); CALCIUM LEVEL 8.7 MG/DL (8.8-10.2); CREATININE FOR GFR 1.6 MG/DL (0.70-1.30); GLOMERULAR FILTRATION RATE 44.6 (>42)
[2021-05-28 06:46] LABS: PLATELET COUNT, AUTOMATED 228 10^3/uL (150-450); WHITE BLOOD COUNT 11.7 10^3/uL (4.0-10.0)
[2021-05-28] MEDS: HumaLOG INSULIN (NovoLOG) PER UNIT SC SCH ×4 (07:26→20:53)
[2021-05-28 07:51] LABS: ERYTHROCYTE SEDIMENTATION RATE 8 mm/hr (0-20)
[2021-05-28 08:08] LABS: ABG BASE EXCESS -2.1 (-2.0-2.0); ABG PARTIAL PRESSURE CO2 32.4 mmHg (35.0-45.0); ABG PARTIAL PRESSURE O2 66.2 mmHg (75.0-100.0); ABG STANDARD HCO3 22.6 MEQ/L (22.0-26.0)
[2021-05-28] MEDS: DOXYCYCLINE HYCLATE 100MG TABLET PO SCH ×2 (08:40→20:39)
[2021-05-28] MEDS: TAMSULOSIN 0.4 MG CAP PO SCH ×2 (08:40→20:39)
[2021-05-28] MEDS: ATORVASTATIN 20 MG TAB PO SCH (08:40)
[2021-05-28] MEDS: HEPARIN SOD (PORCINE) 5000UNITS/ML 1ML VIAL/SYRINGE SQ SCH ×2 (08:41→20:40)
[2021-05-28] MEDS: QUEtiapine FUMARATE 12.5 MG HALF-TAB PO SCH ×2 (08:41→18:02)
[2021-05-28] MEDS: ASPIRIN 81MG ENTERIC TABLET PO SCH (08:41)
[2021-05-28] MEDS: LEVEMIR (INSULIN DETEMIR) 1 UNITS/0.01ML SC SCH (08:41)
[2021-05-28 14:00] VITALS: BP 154/85
[2021-05-28 19:47] VITALS: BP 141/56
[2021-05-28] MEDS: FINASTERIDE 5 MG TAB PO SCH (20:39)
[2021-05-28] MEDS: LATANOPROST 0.005% OPHTH SOLN 2.5 ML OU SCH (22:36)
[2021-05-29] MEDS: LORazepam 2 MG/ML VIAL IV PRN (02:20)
[2021-05-29 04:57] VITALS: BP 145/58
[2021-05-29] MEDS: cefTRIAXone SOD 1 GM in D5W MINI-BAG PLUS 50 ML IV SCH ×2 (05:17→17:24)
[2021-05-29 08:02] LABS: BASO # 0.1 10^3/uL (0.0-0.2); BASO % 0.9 % (0.0-1.0); EOS # 0.3 10^3/uL (0.0-0.5); EOS % 2.6 % (0.0-3.0); HEMOGLOBIN 16.8 g/dl (13.5-17.5); LYMPH # 1.5 10^3/uL (1.5-5.0); LYMPH % 13.1 % (24.0-44.0); MEAN CORPUSCULAR HEMOGLOBIN 27.9 pg (27.0-33.0); MEAN CORPUSCULAR HGB CONC 32.3 g/dl (32.0-36.5); MEAN CORPUSCULAR VOLUME 86.4 fl (80.0-96.0); MONO # 1.2 10^3/uL (0.0-0.8); MONO % 10.4 % (2.0-8.0); NEUTROPHILS # 8.3 10^3/uL (1.5-8.5); NEUTROPHILS % 71.5 % (36.0-66.0); PLATELET COUNT, AUTOMATED 312 10^3/uL (150-450); RED BLOOD COUNT 6.02 10^6/uL (4.30-6.10); WHITE BLOOD COUNT 11.7 10^3/uL (4.0-10.0)
[2021-05-29 08:23] LABS: C REACTIVE PROTEIN QUANTITATIV 8.86 MG/DL (0.00-0.30); CREATININE FOR GFR 1.61 MG/DL (0.70-1.30); GLOMERULAR FILTRATION RATE 44.3 (>42); POTASSIUM SERUM 3.9 MEQ/L (3.5-5.1)
[2021-05-29 08:31] LABS: ERYTHROCYTE SEDIMENTATION RATE 5 mm/hr (0-20)
[2021-05-29] MEDS: ASPIRIN 81MG ENTERIC TABLET PO SCH (08:49)
[2021-05-29] MEDS: QUEtiapine FUMARATE 12.5 MG HALF-TAB PO SCH ×2 (08:50→17:24)
[2021-05-29] MEDS: ATORVASTATIN 20 MG TAB PO SCH (08:50)
[2021-05-29] MEDS: TAMSULOSIN 0.4 MG CAP PO SCH ×2 (08:50→20:53)
[2021-05-29] MEDS: DOXYCYCLINE HYCLATE 100MG TABLET PO SCH ×2 (08:52→20:53)
[2021-05-29] MEDS: LEVEMIR (INSULIN DETEMIR) 1 UNITS/0.01ML SC SCH (08:52)
[2021-05-29] MEDS: HumaLOG INSULIN (NovoLOG) PER UNIT SC SCH ×4 (08:53→20:53)
[2021-05-29] MEDS: HEPARIN SOD (PORCINE) 5000UNITS/ML 1ML VIAL/SYRINGE SQ SCH ×2 (08:53→20:54)
[2021-05-29 14:00] VITALS: BP 149/65
[2021-05-29] MEDS: FINASTERIDE 5 MG TAB PO SCH (20:53)
[2021-05-29] MEDS: LATANOPROST 0.005% OPHTH SOLN 2.5 ML OU SCH (20:54)
[2021-05-29 22:00] VITALS: BP 163/85
[2021-05-30] MEDS: cefTRIAXone SOD 1 GM in D5W MINI-BAG PLUS 50 ML IV SCH (05:48)
[2021-05-30 06:00] VITALS: BP 162/80
[2021-05-30 07:11] LABS: HEMOGLOBIN 17.5 g/dl (13.5-17.5); MEAN CORPUSCULAR HEMOGLOBIN 27.7 pg (27.0-33.0); MEAN CORPUSCULAR HGB CONC 31.8 g/dl (32.0-36.5); PLATELET COUNT, AUTOMATED 331 10^3/uL (150-450); RED BLOOD COUNT 6.32 10^6/uL (4.30-6.10)
[2021-05-30 07:29] LABS: CALCIUM LEVEL 9.3 MG/DL (8.8-10.2); CREATININE FOR GFR 1.51 MG/DL (0.70-1.30); GLOMERULAR FILTRATION RATE 47.7 (>42); POTASSIUM SERUM 4.4 MEQ/L (3.5-5.1)
[2021-05-30] MEDS: ASPIRIN 81MG ENTERIC TABLET PO SCH (08:52)
[2021-05-30] MEDS: HumaLOG INSULIN (NovoLOG) PER UNIT SC SCH ×4 (08:52→20:43)
[2021-05-30] MEDS: QUEtiapine FUMARATE 12.5 MG HALF-TAB PO SCH ×2 (08:53→17:45)
[2021-05-30] MEDS: DOXYCYCLINE HYCLATE 100MG TABLET PO SCH (08:53)
[2021-05-30] MEDS: TAMSULOSIN 0.4 MG CAP PO SCH ×2 (08:54→20:42)
[2021-05-30] MEDS: LEVEMIR (INSULIN DETEMIR) 1 UNITS/0.01ML SC SCH (08:55)
[2021-05-30] MEDS: ATORVASTATIN 20 MG TAB PO SCH (09:01)
[2021-05-30] MEDS: HEPARIN SOD (PORCINE) 5000UNITS/ML 1ML VIAL/SYRINGE SQ SCH ×2 (09:02→20:43)
[2021-05-30 13:46] VITALS: BP 154/75
[2021-05-30] MEDS ORDERED: ALBUTEROL 90 MCG/ACT 8GM HFA INHALER INH PRN (14:25)
[2021-05-30] MEDS ORDERED: EPINEPHrine INJ 1 MG/ML 1ML AMP IM PRN (14:25)
[2021-05-30] MEDS ORDERED: NS 1,000 ML IV SCH (14:25)
[2021-05-30] MEDS ORDERED: ALBUTEROL SULFATE 2.5 MG/0.5 ML INH NEB SOLN INH PRN (14:25)
[2021-05-30] MEDS ORDERED: methylPREDNISolone 125MG 2ML VIAL IV PRN (14:25)
[2021-05-30] MEDS ORDERED: diphenhydrAMINE 50MG/ML VIAL (J1200) IV PRN (14:25)
[2021-05-30 14:45] VITALS: BP 148/73
[2021-05-30] MEDS ORDERED: CASIRIVIMAB/IMDEVIMAB 1,200 MG in NS 250 ML IV ONE (15:00)
[2021-05-30 15:15] VITALS: BP 144/77
[2021-05-30 15:45] VITALS: BP 144/70
[2021-05-30 20:00] VITALS: BP 154/80
[2021-05-30] MEDS: FINASTERIDE 5 MG TAB PO SCH (20:42)
[2021-05-30] MEDS: CEFDINIR 300 MG CAP (OMNICEF) PO SCH (20:42)
[2021-05-30] MEDS: LATANOPROST 0.005% OPHTH SOLN 2.5 ML OU SCH (20:43)
[2021-05-31 06:00] VITALS: BP 160/78
[2021-05-31 07:37] LABS: HEMATOCRIT 55.1 % (42.0-52.0); HEMOGLOBIN 17.2 g/dl (13.5-17.5); MEAN CORPUSCULAR HEMOGLOBIN 27.2 pg (27.0-33.0); MEAN CORPUSCULAR HGB CONC 31.2 g/dl (32.0-36.5); MEAN CORPUSCULAR VOLUME 87.2 fl (80.0-96.0); PLATELET COUNT, AUTOMATED 288 10^3/uL (150-450); RED BLOOD COUNT 6.32 10^6/uL (4.30-6.10); WHITE BLOOD COUNT 12.3 10^3/uL (4.0-10.0)
[2021-05-31 07:48] LABS: CALCIUM LEVEL 8.9 MG/DL (8.8-10.2); CREATININE FOR GFR 1.66 MG/DL (0.70-1.30); GLOMERULAR FILTRATION RATE 42.8 (>42); POTASSIUM SERUM 4.9 MEQ/L (3.5-5.1)
[2021-05-31] MEDS: LEVEMIR (INSULIN DETEMIR) 1 UNITS/0.01ML SC SCH (08:19)
[2021-05-31] MEDS: HumaLOG INSULIN (NovoLOG) PER UNIT SC SCH ×4 (08:19→21:00)
[2021-05-31] MEDS: CEFDINIR 300 MG CAP (OMNICEF) PO SCH ×2 (08:20→22:39)
[2021-05-31] MEDS: QUEtiapine FUMARATE 12.5 MG HALF-TAB PO SCH ×2 (08:20→16:52)
[2021-05-31] MEDS: TAMSULOSIN 0.4 MG CAP PO SCH ×2 (08:20→22:39)
[2021-05-31] MEDS: ASPIRIN 81MG ENTERIC TABLET PO SCH (08:20)
[2021-05-31] MEDS: ATORVASTATIN 20 MG TAB PO SCH (08:20)
[2021-05-31] MEDS: HEPARIN SOD (PORCINE) 5000UNITS/ML 1ML VIAL/SYRINGE SQ SCH ×2 (08:20→22:39)
[2021-05-31 11:21] LABS: C REACTIVE PROTEIN QUANTITATIV 3.85 MG/DL (0.00-0.30)
[2021-05-31 14:00] VITALS: BP 156/75
[2021-05-31 20:00] VITALS: BP 145/73
[2021-05-31] MEDS: FINASTERIDE 5 MG TAB PO SCH (22:39)
[2021-05-31] MEDS: LATANOPROST 0.005% OPHTH SOLN 2.5 ML OU SCH (22:39)
[2021-06-01 07:00] VITALS: BP 172/99
[2021-06-01 07:23] LABS: CALCIUM LEVEL 8.6 MG/DL (8.8-10.2); CREATININE FOR GFR 1.75 MG/DL (0.70-1.30); GLOMERULAR FILTRATION RATE 40.2 (>42); HEMATOCRIT 53.7 % (42.0-52.0); HEMOGLOBIN 17.6 g/dl (13.5-17.5); MEAN CORPUSCULAR HEMOGLOBIN 27.9 pg (27.0-33.0); MEAN CORPUSCULAR HGB CONC 32.8 g/dl (32.0-36.5); MEAN CORPUSCULAR VOLUME 85.2 fl (80.0-96.0); PLATELET COUNT, AUTOMATED 308 10^3/uL (150-450); POTASSIUM SERUM 4.5 MEQ/L (3.5-5.1); WHITE BLOOD COUNT 11.4 10^3/uL (4.0-10.0)
[2021-06-01] MEDS: HumaLOG INSULIN (NovoLOG) PER UNIT SC SCH ×4 (08:35→21:00)
[2021-06-01] MEDS: ATORVASTATIN 20 MG TAB PO SCH (08:36)
[2021-06-01] MEDS: LEVEMIR (INSULIN DETEMIR) 1 UNITS/0.01ML SC SCH (08:36)
[2021-06-01] MEDS: CEFDINIR 300 MG CAP (OMNICEF) PO SCH ×2 (08:36→21:44)
[2021-06-01] MEDS: ASPIRIN 81MG ENTERIC TABLET PO SCH (08:36)
[2021-06-01] MEDS: TAMSULOSIN 0.4 MG CAP PO SCH ×2 (08:36→21:44)
[2021-06-01] MEDS: QUEtiapine FUMARATE 12.5 MG HALF-TAB PO SCH ×2 (08:36→17:02)
[2021-06-01] MEDS: HEPARIN SOD (PORCINE) 5000UNITS/ML 1ML VIAL/SYRINGE SQ SCH ×2 (08:37→21:44)
[2021-06-01 10:41] LABS: C REACTIVE PROTEIN QUANTITATIV 2.2 MG/DL (0.00-0.30)
[2021-06-01] MEDS: MULTIVITAMINS/MINERALS THERAP 1 TAB PO SCH (12:18)
[2021-06-01 14:00] VITALS: BP 153/86
[2021-06-01 20:00] VITALS: BP 158/85
[2021-06-01] MEDS: FUROSEMIDE 40 MG TAB PO SCH (21:44)
[2021-06-01] MEDS: FINASTERIDE 5 MG TAB PO SCH (21:44)
[2021-06-01] MEDS: LATANOPROST 0.005% OPHTH SOLN 2.5 ML OU SCH (21:45)
[2021-06-02 06:00] VITALS: BP 153/80
[2021-06-02 06:11] LABS: HEMATOCRIT 54.5 % (42.0-52.0); HEMOGLOBIN 17.6 g/dl (13.5-17.5); MEAN CORPUSCULAR HEMOGLOBIN 27.2 pg (27.0-33.0); MEAN CORPUSCULAR HGB CONC 32.3 g/dl (32.0-36.5); MEAN CORPUSCULAR VOLUME 84.1 fl (80.0-96.0); PLATELET COUNT, AUTOMATED 309 10^3/uL (150-450); RED BLOOD COUNT 6.48 10^6/uL (4.30-6.10)
[2021-06-02 06:25] LABS: C REACTIVE PROTEIN QUANTITATIV 1.56 MG/DL (0.00-0.30); CALCIUM LEVEL 9.1 MG/DL (8.8-10.2); CREATININE FOR GFR 1.84 MG/DL (0.70-1.30); POTASSIUM SERUM 4.2 MEQ/L (3.5-5.1)
[2021-06-02] MEDS: ACETAMINOPHEN TAB 650MG DOSE (2X325MG) PO PRN ×2 (06:56→20:31)
[2021-06-02] MEDS: LEVEMIR (INSULIN DETEMIR) 1 UNITS/0.01ML SC SCH (08:20)
[2021-06-02] MEDS: HumaLOG INSULIN (NovoLOG) PER UNIT SC SCH ×4 (08:21→20:29)
[2021-06-02] MEDS: MULTIVITAMINS/MINERALS THERAP 1 TAB PO SCH (08:21)
[2021-06-02] MEDS: HEPARIN SOD (PORCINE) 5000UNITS/ML 1ML VIAL/SYRINGE SQ SCH ×2 (08:21→20:29)
[2021-06-02] MEDS: ATORVASTATIN 20 MG TAB PO SCH (08:21)
[2021-06-02] MEDS: CEFDINIR 300 MG CAP (OMNICEF) PO SCH ×2 (08:21→20:28)
[2021-06-02] MEDS: ASPIRIN 81MG ENTERIC TABLET PO SCH (08:21)
[2021-06-02] MEDS: TAMSULOSIN 0.4 MG CAP PO SCH ×2 (08:21→20:28)
[2021-06-02] MEDS: QUEtiapine FUMARATE 12.5 MG HALF-TAB PO SCH ×2 (08:22→18:06)
[2021-06-02 14:00] VITALS: BP 148/78
[2021-06-02] MEDS: FUROSEMIDE 40 MG TAB PO SCH (20:28)
[2021-06-02] MEDS: FINASTERIDE 5 MG TAB PO SCH (20:29)
[2021-06-02] MEDS: LATANOPROST 0.005% OPHTH SOLN 2.5 ML OU SCH (20:30)
[2021-06-02 21:00] VITALS: BP 152/79
[2021-06-03 06:15] VITALS: BP 154/73
[2021-06-03 08:15] LABS: HEMATOCRIT 59.5 % (42.0-52.0); MEAN CORPUSCULAR HEMOGLOBIN 27.5 pg (27.0-33.0); MEAN CORPUSCULAR HGB CONC 31.9 g/dl (32.0-36.5); PLATELET COUNT, AUTOMATED 315 10^3/uL (150-450); RED BLOOD COUNT 6.92 10^6/uL (4.30-6.10); WHITE BLOOD COUNT 10.1 10^3/uL (4.0-10.0)
[2021-06-03 08:45] LABS: CALCIUM LEVEL 9.8 MG/DL (8.8-10.2); CREATININE FOR GFR 1.85 MG/DL (0.70-1.30); GLOMERULAR FILTRATION RATE 37.7 (>42); POTASSIUM SERUM 4.8 MEQ/L (3.5-5.1)
[2021-06-03] MEDS: CEFDINIR 300 MG CAP (OMNICEF) PO SCH ×2 (09:20→21:28)
[2021-06-03] MEDS: ATORVASTATIN 20 MG TAB PO SCH (09:20)
[2021-06-03] MEDS: QUEtiapine FUMARATE 12.5 MG HALF-TAB PO SCH ×2 (09:20→17:15)
[2021-06-03] MEDS: MULTIVITAMINS/MINERALS THERAP 1 TAB PO SCH (09:20)
[2021-06-03] MEDS: TAMSULOSIN 0.4 MG CAP PO SCH ×2 (09:20→21:27)
[2021-06-03] MEDS: ASPIRIN 81MG ENTERIC TABLET PO SCH (09:20)
[2021-06-03] MEDS: LEVEMIR (INSULIN DETEMIR) 1 UNITS/0.01ML SC SCH (09:21)
[2021-06-03] MEDS: HumaLOG INSULIN (NovoLOG) PER UNIT SC SCH ×4 (09:22→21:00)
[2021-06-03] MEDS: HEPARIN SOD (PORCINE) 5000UNITS/ML 1ML VIAL/SYRINGE SQ SCH ×2 (09:23→21:28)
[2021-06-03] MEDS: DOXYCYCLINE HYCLATE 100MG TABLET PO SCH ×2 (12:31→21:27)
[2021-06-03 14:00] VITALS: BP 116/58
[2021-06-03] MEDS: FUROSEMIDE 40 MG TAB PO SCH (21:27)
[2021-06-03] MEDS: FINASTERIDE 5 MG TAB PO SCH (21:28)
[2021-06-03] MEDS: ACETAMINOPHEN TAB 650MG DOSE (2X325MG) PO PRN (21:28)
[2021-06-03] MEDS: LATANOPROST 0.005% OPHTH SOLN 2.5 ML OU SCH (21:28)
[2021-06-04 06:00] VITALS: BP 169/79
[2021-06-04 06:14] LABS: BASO # 0.1 10^3/uL (0.0-0.2); BASO % 1.1 % (0.0-1.0); EOS # 0.3 10^3/uL (0.0-0.5); EOS % 2.3 % (0.0-3.0); HEMOGLOBIN 18.2 g/dl (13.5-17.5); LYMPH # 2.7 10^3/uL (1.5-5.0); MEAN CORPUSCULAR HEMOGLOBIN 27.5 pg (27.0-33.0); MEAN CORPUSCULAR HGB CONC 32.5 g/dl (32.0-36.5); MEAN CORPUSCULAR VOLUME 84.5 fl (80.0-96.0); MONO # 1.3 10^3/uL (0.0-0.8); NEUTROPHILS # 8.3 10^3/uL (1.5-8.5); NEUTROPHILS % 63.9 % (36.0-66.0); PLATELET COUNT, AUTOMATED 317 10^3/uL (150-450); RED BLOOD COUNT 6.63 10^6/uL (4.30-6.10)
[2021-06-04 06:27] LABS: CALCIUM LEVEL 9.4 MG/DL (8.8-10.2); CREATININE FOR GFR 1.79 MG/DL (0.70-1.30); GLOMERULAR FILTRATION RATE 39.2 (>42); MAGNESIUM LEVEL 2.2 MG/DL (1.8-2.4); POTASSIUM SERUM 4.8 MEQ/L (3.5-5.1)
[2021-06-04] MEDS: HumaLOG INSULIN (NovoLOG) PER UNIT SC SCH ×4 (08:41→20:54)
[2021-06-04] MEDS: HEPARIN SOD (PORCINE) 5000UNITS/ML 1ML VIAL/SYRINGE SQ SCH ×2 (08:41→20:54)
[2021-06-04] MEDS: LEVEMIR (INSULIN DETEMIR) 1 UNITS/0.01ML SC SCH (08:42)
[2021-06-04] MEDS: ASPIRIN 81MG ENTERIC TABLET PO SCH (08:42)
[2021-06-04] MEDS: ATORVASTATIN 20 MG TAB PO SCH (08:42)
[2021-06-04] MEDS: TAMSULOSIN 0.4 MG CAP PO SCH ×2 (08:42→20:52)
[2021-06-04] MEDS: CEFDINIR 300 MG CAP (OMNICEF) PO SCH (08:42)
[2021-06-04] MEDS: QUEtiapine FUMARATE 12.5 MG HALF-TAB PO SCH ×2 (08:42→18:02)
[2021-06-04] MEDS: DOXYCYCLINE HYCLATE 100MG TABLET PO SCH ×2 (08:42→20:52)
[2021-06-04] MEDS: MULTIVITAMINS/MINERALS THERAP 1 TAB PO SCH (12:40)
[2021-06-04] MEDS: FUROSEMIDE 40 MG TAB PO SCH (20:52)
[2021-06-04] MEDS: FINASTERIDE 5 MG TAB PO SCH (20:52)
[2021-06-04] MEDS: LATANOPROST 0.005% OPHTH SOLN 2.5 ML OU SCH (20:54)
[2021-06-05] MEDS: ACETAMINOPHEN TAB 650MG DOSE (2X325MG) PO PRN ×2 (05:54→15:52)
[2021-06-05 06:00] VITALS: BP 142/80
[2021-06-05] MEDS: DOXYCYCLINE HYCLATE 100MG TABLET PO SCH ×2 (08:27→20:44)
[2021-06-05] MEDS: ATORVASTATIN 20 MG TAB PO SCH (08:27)
[2021-06-05] MEDS: ASPIRIN 81MG ENTERIC TABLET PO SCH (08:27)
[2021-06-05] MEDS: TAMSULOSIN 0.4 MG CAP PO SCH ×2 (08:27→20:44)
[2021-06-05] MEDS: QUEtiapine FUMARATE 12.5 MG HALF-TAB PO SCH ×2 (08:27→18:07)
[2021-06-05] MEDS: HumaLOG INSULIN (NovoLOG) PER UNIT SC SCH ×4 (08:28→20:45)
[2021-06-05] MEDS: HEPARIN SOD (PORCINE) 5000UNITS/ML 1ML VIAL/SYRINGE SQ SCH ×2 (08:28→20:45)
[2021-06-05] MEDS: LEVEMIR (INSULIN DETEMIR) 1 UNITS/0.01ML SC SCH (08:29)
[2021-06-05 08:48] LABS: BASO # 0.1 10^3/uL (0.0-0.2); BASO % 1.2 % (0.0-1.0); EOS # 0.2 10^3/uL (0.0-0.5); EOS % 2.1 % (0.0-3.0); HEMATOCRIT 55.5 % (42.0-52.0); HEMOGLOBIN 18.1 g/dl (13.5-17.5); LYMPH # 2.4 10^3/uL (1.5-5.0); LYMPH % 20.9 % (24.0-44.0); MEAN CORPUSCULAR HEMOGLOBIN 27.7 pg (27.0-33.0); MEAN CORPUSCULAR HGB CONC 32.6 g/dl (32.0-36.5); NEUTROPHILS # 7.5 10^3/uL (1.5-8.5); NEUTROPHILS % 65.2 % (36.0-66.0); PLATELET COUNT, AUTOMATED 315 10^3/uL (150-450); RED BLOOD COUNT 6.53 10^6/uL (4.30-6.10); WHITE BLOOD COUNT 11.5 10^3/uL (4.0-10.0)
[2021-06-05 09:06] VITALS: BP 144/72
[2021-06-05 09:15] LABS: CALCIUM LEVEL 9.5 MG/DL (8.8-10.2); CREATININE FOR GFR 2.01 MG/DL (0.70-1.30); GLOMERULAR FILTRATION RATE 34.3 (>42); MAGNESIUM LEVEL 2.2 MG/DL (1.8-2.4); POTASSIUM SERUM 4.6 MEQ/L (3.5-5.1)
[2021-06-05] MEDS: MULTIVITAMINS/MINERALS THERAP 1 TAB PO SCH (13:29)
[2021-06-05] MEDS: FUROSEMIDE 40 MG TAB PO SCH (20:44)
[2021-06-05] MEDS: FINASTERIDE 5 MG TAB PO SCH (20:44)
[2021-06-05] MEDS: LATANOPROST 0.005% OPHTH SOLN 2.5 ML OU SCH (20:46)
[2021-06-06 06:00] VITALS: BP 119/72
[2021-06-06] MEDS: HEPARIN SOD (PORCINE) 5000UNITS/ML 1ML VIAL/SYRINGE SQ SCH ×2 (07:31→20:52)
[2021-06-06] MEDS: LEVEMIR (INSULIN DETEMIR) 1 UNITS/0.01ML SC SCH (07:31)
[2021-06-06] MEDS: ACETAMINOPHEN TAB 650MG DOSE (2X325MG) PO PRN ×2 (07:32→15:25)
[2021-06-06] MEDS: QUEtiapine FUMARATE 12.5 MG HALF-TAB PO SCH ×2 (07:32→16:38)
[2021-06-06] MEDS: ASPIRIN 81MG ENTERIC TABLET PO SCH (07:32)
[2021-06-06] MEDS: ATORVASTATIN 20 MG TAB PO SCH (07:32)
[2021-06-06] MEDS: DOXYCYCLINE HYCLATE 100MG TABLET PO SCH ×2 (07:33→20:51)
[2021-06-06] MEDS: TAMSULOSIN 0.4 MG CAP PO SCH ×2 (07:33→20:51)
[2021-06-06] MEDS: HumaLOG INSULIN (NovoLOG) PER UNIT SC SCH ×4 (07:36→20:52)
[2021-06-06 09:00] VITALS: BP 119/72
[2021-06-06 10:26] LABS: BASO # 0.1 10^3/uL (0.0-0.2); BASO % 0.9 % (0.0-1.0); EOS # 0.2 10^3/uL (0.0-0.5); EOS % 1.1 % (0.0-3.0); LYMPH # 2.2 10^3/uL (1.5-5.0); LYMPH % 15.5 % (24.0-44.0); MEAN CORPUSCULAR HEMOGLOBIN 27.5 pg (27.0-33.0); MEAN CORPUSCULAR HGB CONC 32.1 g/dl (32.0-36.5); MEAN CORPUSCULAR VOLUME 85.6 fl (80.0-96.0); MONO # 1.3 10^3/uL (0.0-0.8); MONO % 9.2 % (2.0-8.0); NEUTROPHILS # 10.3 10^3/uL (1.5-8.5); NEUTROPHILS % 72.3 % (36.0-66.0); PLATELET COUNT, AUTOMATED 308 10^3/uL (150-450); RED BLOOD COUNT 6.54 10^6/uL (4.30-6.10); WHITE BLOOD COUNT 14.2 10^3/uL (4.0-10.0)
[2021-06-06 11:02] LABS: CALCIUM LEVEL 9.3 MG/DL (8.8-10.2); CREATININE FOR GFR 2.22 MG/DL (0.70-1.30); GLOMERULAR FILTRATION RATE 30.6 (>42); MAGNESIUM LEVEL 2.2 MG/DL (1.8-2.4); POTASSIUM SERUM 5.2 MEQ/L (3.5-5.1)
[2021-06-06] MEDS: MULTIVITAMINS/MINERALS THERAP 1 TAB PO SCH (12:06)
[2021-06-06] MEDS: CEFDINIR 300 MG CAP (OMNICEF) PO SCH ×2 (14:58→20:51)
[2021-06-06] MEDS ORDERED: SOD POLYSTYRENE SULFONATE SUSP 15 GM/60 ML UD PO ONE (16:00)
[2021-06-06] MEDS: FUROSEMIDE 40 MG TAB PO SCH (20:51)
[2021-06-06] MEDS: LATANOPROST 0.005% OPHTH SOLN 2.5 ML OU SCH (20:51)
[2021-06-06] MEDS: FINASTERIDE 5 MG TAB PO SCH (20:51)
[2021-06-07 04:43] LABS: BASO # 0.1 10^3/uL (0.0-0.2); EOS # 0.4 10^3/uL (0.0-0.5); EOS % 3.1 % (0.0-3.0); HEMATOCRIT 52.3 % (42.0-52.0); HEMOGLOBIN 17.3 g/dl (13.5-17.5); LYMPH % 22.1 % (24.0-44.0); MEAN CORPUSCULAR HEMOGLOBIN 27.9 pg (27.0-33.0); MEAN CORPUSCULAR HGB CONC 33.1 g/dl (32.0-36.5); MEAN CORPUSCULAR VOLUME 84.5 fl (80.0-96.0); MONO # 1.5 10^3/uL (0.0-0.8); MONO % 10.9 % (2.0-8.0); NEUTROPHILS # 8.3 10^3/uL (1.5-8.5); NEUTROPHILS % 61.6 % (36.0-66.0); PLATELET COUNT, AUTOMATED 298 10^3/uL (150-450); RED BLOOD COUNT 6.19 10^6/uL (4.30-6.10); WHITE BLOOD COUNT 13.4 10^3/uL (4.0-10.0)
[2021-06-07 04:58] LABS: CALCIUM LEVEL 9.1 MG/DL (8.8-10.2); CREATININE FOR GFR 1.98 MG/DL (0.70-1.30); GLOMERULAR FILTRATION RATE 34.9 (>42); MAGNESIUM LEVEL 2.3 MG/DL (1.8-2.4); POTASSIUM SERUM 4.4 MEQ/L (3.5-5.1)
[2021-06-07 06:25] VITALS: BP 145/77
[2021-06-07] MEDS: HumaLOG INSULIN (NovoLOG) PER UNIT SC SCH ×4 (08:27→21:00)
[2021-06-07] MEDS: HEPARIN SOD (PORCINE) 5000UNITS/ML 1ML VIAL/SYRINGE SQ SCH ×2 (08:28→21:55)
[2021-06-07] MEDS: ATORVASTATIN 20 MG TAB PO SCH (08:28)
[2021-06-07] MEDS: LEVEMIR (INSULIN DETEMIR) 1 UNITS/0.01ML SC SCH (08:28)
[2021-06-07] MEDS: QUEtiapine FUMARATE 12.5 MG HALF-TAB PO SCH ×2 (08:28→17:06)
[2021-06-07] MEDS: CEFDINIR 300 MG CAP (OMNICEF) PO SCH ×2 (08:29→21:55)
[2021-06-07] MEDS: TAMSULOSIN 0.4 MG CAP PO SCH ×2 (08:29→21:55)
[2021-06-07] MEDS: ASPIRIN 81MG ENTERIC TABLET PO SCH (08:29)
[2021-06-07] MEDS: DOXYCYCLINE HYCLATE 100MG TABLET PO SCH ×2 (08:29→21:55)
[2021-06-07] MEDS: MULTIVITAMINS/MINERALS THERAP 1 TAB PO SCH (12:46)
[2021-06-07] MEDS: FUROSEMIDE 40 MG TAB PO SCH (21:55)
[2021-06-07] MEDS: FINASTERIDE 5 MG TAB PO SCH (21:55)
[2021-06-07] MEDS: LATANOPROST 0.005% OPHTH SOLN 2.5 ML OU SCH (21:56)
[2021-06-08 02:39] VITALS: BP 119/98
[2021-06-08] MEDS: ACETAMINOPHEN TAB 650MG DOSE (2X325MG) PO PRN ×2 (05:46→20:56)
[2021-06-08 07:59] LABS: BASO # 0.1 10^3/uL (0.0-0.2); BASO % 1.2 % (0.0-1.0); EOS # 0.3 10^3/uL (0.0-0.5); EOS % 2.5 % (0.0-3.0); LYMPH # 2.3 10^3/uL (1.5-5.0); LYMPH % 19.8 % (24.0-44.0); MEAN CORPUSCULAR HEMOGLOBIN 27.4 pg (27.0-33.0); MEAN CORPUSCULAR HGB CONC 32.1 g/dl (32.0-36.5); MEAN CORPUSCULAR VOLUME 85.4 fl (80.0-96.0); MONO # 1.2 10^3/uL (0.0-0.8); MONO % 10.3 % (2.0-8.0); NEUTROPHILS # 7.7 10^3/uL (1.5-8.5); NEUTROPHILS % 65.1 % (36.0-66.0); PLATELET COUNT, AUTOMATED 309 10^3/uL (150-450); RED BLOOD COUNT 6.56 10^6/uL (4.30-6.10); WHITE BLOOD COUNT 11.8 10^3/uL (4.0-10.0)
[2021-06-08 08:19] LABS: CALCIUM LEVEL 9.6 MG/DL (8.8-10.2); CREATININE FOR GFR 2.19 MG/DL (0.70-1.30); GLOMERULAR FILTRATION RATE 31.1 (>42); MAGNESIUM LEVEL 2.3 MG/DL (1.8-2.4); POTASSIUM SERUM 4.8 MEQ/L (3.5-5.1)
[2021-06-08] MEDS: LEVEMIR (INSULIN DETEMIR) 1 UNITS/0.01ML SC SCH (08:35)
[2021-06-08] MEDS: HumaLOG INSULIN (NovoLOG) PER UNIT SC SCH ×4 (08:35→21:00)
[2021-06-08] MEDS: QUEtiapine FUMARATE 12.5 MG HALF-TAB PO SCH ×2 (08:36→17:09)
[2021-06-08] MEDS: ASPIRIN 81MG ENTERIC TABLET PO SCH (08:36)
[2021-06-08] MEDS: ATORVASTATIN 20 MG TAB PO SCH (08:36)
[2021-06-08] MEDS: CEFDINIR 300 MG CAP (OMNICEF) PO SCH ×2 (08:36→20:54)
[2021-06-08] MEDS: DOXYCYCLINE HYCLATE 100MG TABLET PO SCH ×2 (08:36→20:55)
[2021-06-08] MEDS: HEPARIN SOD (PORCINE) 5000UNITS/ML 1ML VIAL/SYRINGE SQ SCH ×2 (08:36→20:55)
[2021-06-08] MEDS: TAMSULOSIN 0.4 MG CAP PO SCH ×2 (08:36→20:55)
[2021-06-08] MEDS: MULTIVITAMINS/MINERALS THERAP 1 TAB PO SCH (12:12)
[2021-06-08] MEDS: FINASTERIDE 5 MG TAB PO SCH (20:55)
[2021-06-08] MEDS: FUROSEMIDE 40 MG TAB PO SCH (20:55)
[2021-06-08] MEDS: LATANOPROST 0.005% OPHTH SOLN 2.5 ML OU SCH (20:56)
[2021-06-09 06:00] VITALS: BP 128/91
[2021-06-09 06:20] LABS: BASO # 0.1 10^3/uL (0.0-0.2); BASO % 1.2 % (0.0-1.0); EOS # 0.4 10^3/uL (0.0-0.5); EOS % 3.8 % (0.0-3.0); HEMATOCRIT 54.2 % (42.0-52.0); HEMOGLOBIN 17.7 g/dl (13.5-17.5); LYMPH # 2.6 10^3/uL (1.5-5.0); LYMPH % 24.9 % (24.0-44.0); MEAN CORPUSCULAR HEMOGLOBIN 27.6 pg (27.0-33.0); MEAN CORPUSCULAR HGB CONC 32.7 g/dl (32.0-36.5); MEAN CORPUSCULAR VOLUME 84.6 fl (80.0-96.0); MONO # 1.1 10^3/uL (0.0-0.8); MONO % 10.6 % (2.0-8.0); NEUTROPHILS # 6.1 10^3/uL (1.5-8.5); NEUTROPHILS % 58.5 % (36.0-66.0); PLATELET COUNT, AUTOMATED 330 10^3/uL (150-450); RED BLOOD COUNT 6.41 10^6/uL (4.30-6.10); WHITE BLOOD COUNT 10.4 10^3/uL (4.0-10.0)
[2021-06-09 06:41] LABS: CALCIUM LEVEL 9.3 MG/DL (8.8-10.2); CREATININE FOR GFR 2.02 MG/DL (0.70-1.30); GLOMERULAR FILTRATION RATE 34.1 (>42); MAGNESIUM LEVEL 2.2 MG/DL (1.8-2.4); POTASSIUM SERUM 4.1 MEQ/L (3.5-5.1)
[2021-06-09] MEDS: ATORVASTATIN 20 MG TAB PO SCH (08:15)
[2021-06-09] MEDS: DOXYCYCLINE HYCLATE 100MG TABLET PO SCH ×2 (08:15→21:35)
[2021-06-09] MEDS: ASPIRIN 81MG ENTERIC TABLET PO SCH (08:16)
[2021-06-09] MEDS: TAMSULOSIN 0.4 MG CAP PO SCH ×2 (08:16→21:35)
[2021-06-09] MEDS: CEFDINIR 300 MG CAP (OMNICEF) PO SCH ×2 (08:16→21:35)
[2021-06-09] MEDS: HEPARIN SOD (PORCINE) 5000UNITS/ML 1ML VIAL/SYRINGE SQ SCH ×2 (08:16→21:36)
[2021-06-09] MEDS: LEVEMIR (INSULIN DETEMIR) 1 UNITS/0.01ML SC SCH (08:16)
[2021-06-09] MEDS: QUEtiapine FUMARATE 12.5 MG HALF-TAB PO SCH ×2 (08:16→16:04)
[2021-06-09] MEDS: HumaLOG INSULIN (NovoLOG) PER UNIT SC SCH ×4 (08:17→21:00)
[2021-06-09] MEDS: MULTIVITAMINS/MINERALS THERAP 1 TAB PO SCH (12:32)
[2021-06-09] MEDS: ACETAMINOPHEN TAB 650MG DOSE (2X325MG) PO PRN (16:04)
[2021-06-09] MEDS: FINASTERIDE 5 MG TAB PO SCH (21:35)
[2021-06-09] MEDS: FUROSEMIDE 40 MG TAB PO SCH (21:35)
[2021-06-09] MEDS: LATANOPROST 0.005% OPHTH SOLN 2.5 ML OU SCH (21:36)
[2021-06-10] MEDS: ACETAMINOPHEN TAB 650MG DOSE (2X325MG) PO PRN ×2 (01:04→05:43)
[2021-06-10 06:00] VITALS: BP 126/86
[2021-06-10 06:05] VITALS: BP 121/90
[2021-06-10 06:43] LABS: BASO # 0.1 10^3/uL (0.0-0.2); BASO % 1.1 % (0.0-1.0); EOS # 0.2 10^3/uL (0.0-0.5); EOS % 2.1 % (0.0-3.0); HEMATOCRIT 53.6 % (42.0-52.0); HEMOGLOBIN 17.3 g/dl (13.5-17.5); LYMPH # 2.4 10^3/uL (1.5-5.0); LYMPH % 22.8 % (24.0-44.0); MEAN CORPUSCULAR HEMOGLOBIN 27.7 pg (27.0-33.0); MEAN CORPUSCULAR HGB CONC 32.3 g/dl (32.0-36.5); MEAN CORPUSCULAR VOLUME 85.9 fl (80.0-96.0); MONO # 1.1 10^3/uL (0.0-0.8); MONO % 10.5 % (2.0-8.0); NEUTROPHILS # 6.7 10^3/uL (1.5-8.5); NEUTROPHILS % 62.7 % (36.0-66.0); PLATELET COUNT, AUTOMATED 325 10^3/uL (150-450); RED BLOOD COUNT 6.24 10^6/uL (4.30-6.10); WHITE BLOOD COUNT 10.7 10^3/uL (4.0-10.0)
[2021-06-10 07:15] LABS: CALCIUM LEVEL 9.7 MG/DL (8.8-10.2); CREATININE FOR GFR 2.16 MG/DL (0.70-1.30); GLOMERULAR FILTRATION RATE 31.6 (>42); MAGNESIUM LEVEL 2.2 MG/DL (1.8-2.4); POTASSIUM SERUM 5.3 MEQ/L (3.5-5.1)
[2021-06-10] MEDS: QUEtiapine FUMARATE 12.5 MG HALF-TAB PO SCH ×2 (08:15→17:22)
[2021-06-10] MEDS: ATORVASTATIN 20 MG TAB PO SCH (08:15)
[2021-06-10] MEDS: DOXYCYCLINE HYCLATE 100MG TABLET PO SCH ×2 (08:15→21:38)
[2021-06-10] MEDS: CEFDINIR 300 MG CAP (OMNICEF) PO SCH ×2 (08:15→21:38)
[2021-06-10] MEDS: ASPIRIN 81MG ENTERIC TABLET PO SCH (08:15)
[2021-06-10] MEDS: TAMSULOSIN 0.4 MG CAP PO SCH ×2 (08:16→21:37)
[2021-06-10] MEDS: HEPARIN SOD (PORCINE) 5000UNITS/ML 1ML VIAL/SYRINGE SQ SCH ×2 (08:16→21:37)
[2021-06-10] MEDS: LEVEMIR (INSULIN DETEMIR) 1 UNITS/0.01ML SC SCH (08:17)
[2021-06-10] MEDS: HumaLOG INSULIN (NovoLOG) PER UNIT SC SCH ×4 (08:17→21:00)
[2021-06-10 11:14] LABS: RSV AMPLIFICATION NEGATIVE (NEGATIVE)
[2021-06-10] MEDS: MULTIVITAMINS/MINERALS THERAP 1 TAB PO SCH (12:02)
[2021-06-10] MEDS: LATANOPROST 0.005% OPHTH SOLN 2.5 ML OU SCH (21:37)
[2021-06-10] MEDS: FUROSEMIDE 40 MG TAB PO SCH (21:37)
[2021-06-10] MEDS: FINASTERIDE 5 MG TAB PO SCH (21:37)
[2021-06-11 06:00] VITALS: BP 138/70
[2021-06-11] MEDS: DOXYCYCLINE HYCLATE 100MG TABLET PO SCH (09:20)
[2021-06-11] MEDS: ATORVASTATIN 20 MG TAB PO SCH (09:20)
[2021-06-11] MEDS: ASPIRIN 81MG ENTERIC TABLET PO SCH (09:20)
[2021-06-11] MEDS: QUEtiapine FUMARATE 12.5 MG HALF-TAB PO SCH (09:20)
[2021-06-11] MEDS: TAMSULOSIN 0.4 MG CAP PO SCH (09:20)
[2021-06-11] MEDS: LEVEMIR (INSULIN DETEMIR) 1 UNITS/0.01ML SC SCH (09:21)
[2021-06-11] MEDS: CEFDINIR 300 MG CAP (OMNICEF) PO SCH (09:21)
[2021-06-11] MEDS: HumaLOG INSULIN (NovoLOG) PER UNIT SC SCH ×2 (09:21→12:48)
[2021-06-11] MEDS: HEPARIN SOD (PORCINE) 5000UNITS/ML 1ML VIAL/SYRINGE SQ SCH (09:22)
[2021-06-11] MEDS ORDERED: CEFD300CAP PO (11:25)
[2021-06-11] MEDS ORDERED: DOXY100T PO (11:25)
[2021-06-11] MEDS: MULTIVITAMINS/MINERALS THERAP 1 TAB PO SCH (12:46)
== END 2021-06-11 13:25 | DRG 871 ==
LOC: EDBD 10:02 → M ED 10:02 → M ED INP 15:31 → ENRESERV 16:10 → M MS5PR 16:35
PROVIDERS: ADMIT Internal Medicine Nephrology; ATTEND Internal Medicine
DX: A41.9 Sepsis, unspecified organism (principal); G93.41 Metabolic encephalopathy; I13.0 Hypertensive heart and chronic kidney disease with heart failure and stage 1 through stage 4 chronic kidney disease, or unspecified chronic kidney disease; I50.32 Chronic diastolic (congestive) heart failure; E83.42 Hypomagnesemia; N18.32 Chronic kidney disease, stage 3b; E11.621 Type 2 diabetes mellitus with foot ulcer; D75.1 Secondary polycythemia; Z95.0 Presence of cardiac pacemaker; Z79.4 Long term (current) use of insulin; N40.0 Benign prostatic hyperplasia without lower urinary tract symptoms; F03.90 Unspecified dementia, unspecified severity, without behavioral disturbance, psychotic disturbance, mood disturbance, and anxiety; E78.5 Hyperlipidemia, unspecified; I87.2 Venous insufficiency (chronic) (peripheral); Z79.899 Other long term (current) drug therapy; Z79.82 Long term (current) use of aspirin; Z88.0 Allergy status to penicillin; Z91.030 Bee allergy status; K21.9 Gastro-esophageal reflux disease without esophagitis; E11.51 Type 2 diabetes mellitus with diabetic peripheral angiopathy without gangrene; Z98.41 Cataract extraction status, right eye; Z98.42 Cataract extraction status, left eye; Z86.73 Personal history of transient ischemic attack (TIA), and cerebral infarction without residual deficits; L97.519 Non-pressure chronic ulcer of other part of right foot with unspecified severity

== ENCOUNTER → 2021-05-22 | Outpatient (REF) | payer MEDICARE ==
[~2021-05-22] MED LIST changes: +LANTINJ4 SC; +TRAV04OPD OU; +VITMTA PO
== END ==
LOC: M LAB REF 13:20
PROVIDERS: ATTEND Nurse Practitioner Family
DX: E83.42 Hypomagnesemia (principal)

== ENCOUNTER → 2021-09-09 | Outpatient (REF) | payer MEDICARE ==
[~2021-09-09] MED LIST changes: +CEFD300CAP PO; +DOXY100T PO; +TRAV04OPD OU; +VITMTA PO
[2021-09-09 18:17] LABS: HEMATOCRIT 52.7 % (42.0-52.0); HEMOGLOBIN 16.5 g/dl (13.5-17.5); MEAN CORPUSCULAR HEMOGLOBIN 26.8 pg (27.0-33.0); MEAN CORPUSCULAR HGB CONC 31.3 g/dl (32.0-36.5); MEAN CORPUSCULAR VOLUME 85.7 fl (80.0-96.0); PLATELET COUNT, AUTOMATED 293 10^3/uL (150-450); RED BLOOD COUNT 6.15 10^6/uL (4.30-6.10); WHITE BLOOD COUNT 12.9 10^3/uL (4.0-10.0)
[2021-09-09 18:50] LABS: ALBUMIN 3.5 GM/DL (3.2-5.2); BILIRUBIN,TOTAL 0.4 MG/DL (0.2-1.0); CALCIUM LEVEL 9.7 MG/DL (8.8-10.2); CREATININE FOR GFR 2.14 MG/DL (0.70-1.30); GLOMERULAR FILTRATION RATE 31.9 (>42); MAGNESIUM LEVEL 2.3 MG/DL (1.8-2.4); POTASSIUM SERUM 4.7 MEQ/L (3.5-5.1); THYROID STIMULATING HORMONE 2.33 uIU/ML (0.358-3.740); TOTAL PROTEIN 7.7 GM/DL (6.4-8.2)
== END ==
LOC: M LABDRWAD 17:12
PROVIDERS: ATTEND Physician Assistant
DX: I48.0 Paroxysmal atrial fibrillation (principal)

== ENCOUNTER → 2021-09-10 | Outpatient (REF) | payer MEDICARE ==
[2021-09-10 13:33] LABS: CHOLESTEROL RISK RATIO 4.5 (<5)
== END ==
LOC: M LABDRWAD 12:17
PROVIDERS: ATTEND Physician Assistant
DX: E78.2 Mixed hyperlipidemia (principal)

== ENCOUNTER → 2021-11-21 | Outpatient (REF) | payer MEDICARE | LOC: M LAB REF 16:40 | PROVIDERS: ATTEND Nurse Practitioner Family | DX: E83.42 Hypomagnesemia (principal) ==

== ENCOUNTER → 2021-12-11 | Outpatient (REF) | payer MEDICARE ==
[2021-12-11 14:52] LABS: ALBUMIN 3.8 GM/DL (3.2-5.2); BILIRUBIN,TOTAL 0.4 MG/DL (0.2-1.0); CALCIUM LEVEL 9.6 MG/DL (8.8-10.2); CREATININE FOR GFR 2.05 MG/DL (0.70-1.30); GLOMERULAR FILTRATION RATE 33.5 (>42); POTASSIUM SERUM 4.1 MEQ/L (3.5-5.1); TOTAL PROTEIN 7.8 GM/DL (6.4-8.2)
[2021-12-11 17:08] LABS: HEMOGLOBIN A1c 7.7 %
== END ==
LOC: M SFHCADAM 11:11
PROVIDERS: ATTEND Physician Assistant Medical
DX: I11.0 Hypertensive heart disease with heart failure (principal); E66.01 Morbid (severe) obesity due to excess calories; E11.22 Type 2 diabetes mellitus with diabetic chronic kidney disease

== ENCOUNTER → 2022-05-21 | Outpatient (CLI) | payer MEDICARE | LOC: M RAD 15:16 | PROVIDERS: ATTEND Nurse Practitioner Family | DX: R60.0 Localized edema (principal); M79.604 Pain in right leg ==

== ENCOUNTER 2022-05-27 14:20 | Inpatient (IN) | payer MEDICARE ==
[~2022-05-27] VITALS: Ht 177.8 cm; Wt 115.8 kg
[2022-05-27 16:35] LABS: BASO # 0.1 10^3/uL (0.0-0.2); BASO % 0.7 % (0.0-1.0); EOS # 0.1 10^3/uL (0.0-0.5); EOS % 1.1 % (0.0-3.0); HEMATOCRIT 48.6 % (42.0-52.0); HEMOGLOBIN 15.5 g/dl (13.5-17.5); LYMPH # 1.7 10^3/uL (1.5-5.0); LYMPH % 14.5 % (24.0-44.0); MEAN CORPUSCULAR HEMOGLOBIN 26.4 pg (27.0-33.0); MEAN CORPUSCULAR HGB CONC 31.9 g/dl (32.0-36.5); MEAN CORPUSCULAR VOLUME 82.8 fl (80.0-96.0); MONO # 1.2 10^3/uL (0.0-0.8); MONO % 9.8 % (2.0-8.0); NEUTROPHILS # 8.7 10^3/uL (1.5-8.5); NEUTROPHILS % 73.1 % (36.0-66.0); PLATELET COUNT, AUTOMATED 277 10^3/uL (150-450); RED BLOOD COUNT 5.87 10^6/uL (4.30-6.10); WHITE BLOOD COUNT 11.9 10^3/uL (4.0-10.0)
[2022-05-27 17:13] LABS: C REACTIVE PROTEIN QUANTITATIV 4.48 MG/DL (0.00-0.30); CALCIUM LEVEL 9.6 MG/DL (8.8-10.2); CREATININE FOR GFR 2.44 MG/DL (0.70-1.30); GLOMERULAR FILTRATION RATE 27.3 (>35); POTASSIUM SERUM 4.3 MEQ/L (3.5-5.1)
[2022-05-27 18:49] LABS: ERYTHROCYTE SEDIMENTATION RATE 27 mm/hr (0-20)
[2022-05-27] MEDS ORDERED: VANCOMYCIN HCL 1,000 MG, VIAL MATE ADAPTER 1 EACH in NS 250 ML IV ONE (19:35)
[2022-05-27 20:08] LABS: RSV AMPLIFICATION NEGATIVE (NEGATIVE)
[2022-05-27] MEDS: FINASTERIDE 5MG TAB PO SCH (21:00)
[2022-05-27] MEDS: INSULIN LISPRO (NovoLOG) PER UNIT SC SCH (21:00)
[2022-05-27] MEDS: TAMSULOSIN 0.4 MG CAP PO SCH (21:00)
[2022-05-27] MEDS: ATORVASTATIN 20 MG TAB PO SCH (21:00)
[2022-05-27] MEDS: ASPIRIN 81MG ENTERIC TABLET PO SCH (21:00)
[2022-05-27] MEDS ORDERED: ACETAMINOPHEN TAB 650MG DOSE (2X325MG) PO PRN (21:15)
[2022-05-27] MEDS ORDERED: LATA0.0015 OU (21:15)
[2022-05-27] MEDS ORDERED: DOXY100T PO (21:15)
[2022-05-27] MEDS ORDERED: MOM 30ML SUSPENSION UDC PO PRN (21:15)
[2022-05-27] MEDS ORDERED: HOME MED LIST COMPLETE! XX SCH (21:20)
[2022-05-27] MEDS ORDERED: NS 1,000 ML IV SCH (21:40)
[2022-05-27] MEDS ORDERED: VANCOMYCIN HCL 1,000 MG, VIAL MATE ADAPTER 1 EACH in NS 250 ML IV SCH (21:45)
[2022-05-27] MEDS ORDERED: VANCOMYCIN HCL 750 MG, VIAL MATE ADAPTER 1 EACH in D5W 250 ML IV ONE (23:00)
[2022-05-27] MEDS ORDERED: GLUCAGON INJ 1MG VIAL SC PRN (23:10)
[2022-05-27] MEDS ORDERED: GLUCOSE 4GM CHEW TABLET PO PRN (23:10)
[2022-05-27] MEDS ORDERED: DEXTROSE 50% 50 ML SYRINGE IV PRN (23:10)
[2022-05-27] MEDS ORDERED: hydrALAZINE 20MG/ML 1ML VIAL (J0360 PER 20MG) IV ONE (23:35)
[2022-05-28 00:04] VITALS: BP 135/82
[2022-05-28] MEDS: LATANOPROST 0.005% OPHTH SOLN 2.5 ML OU SCH ×2 (02:28→20:48)
[2022-05-28 05:55] LABS: HEMOGLOBIN 15.3 g/dl (13.5-17.5); MEAN CORPUSCULAR HEMOGLOBIN 27.2 pg (27.0-33.0); MEAN CORPUSCULAR HGB CONC 32.6 g/dl (32.0-36.5); MEAN CORPUSCULAR VOLUME 83.6 fl (80.0-96.0); PLATELET COUNT, AUTOMATED 259 10^3/uL (150-450); RED BLOOD COUNT 5.62 10^6/uL (4.30-6.10)
[2022-05-28 06:00] VITALS: BP 139/81
[2022-05-28] MEDS: HEPARIN SOD (PORCINE) 5000UNITS/ML 1ML VIAL/SYRINGE SC SCH ×3 (06:23→20:48)
[2022-05-28 06:28] LABS: ALBUMIN 2.8 GM/DL (3.2-5.2); BILIRUBIN,TOTAL 0.5 MG/DL (0.2-1.0); CREATININE FOR GFR 2.27 MG/DL (0.70-1.30); GLOMERULAR FILTRATION RATE 29.7 (>35); MAGNESIUM LEVEL 2.3 MG/DL (1.8-2.4); POTASSIUM SERUM 4.2 MEQ/L (3.5-5.1); TOTAL PROTEIN 6.7 GM/DL (6.4-8.2)
[2022-05-28] MEDS: INSULIN LISPRO (NovoLOG) PER UNIT SC SCH ×4 (08:20→20:49)
[2022-05-28] MEDS: LEVEMIR (INSULIN DETEMIR) 1 UNITS/0.01ML SC SCH (08:20)
[2022-05-28] MEDS: TAMSULOSIN 0.4 MG CAP PO SCH ×2 (08:21→20:47)
[2022-05-28] MEDS: DOCUSATE SODIUM 100MG CAPSULE PO SCH ×2 (08:21→20:47)
[2022-05-28] MEDS: VANCOMYCIN HCL 1,000 MG, VIAL MATE ADAPTER 1 EACH in D5W 250 ML IV SCH (09:06)
[2022-05-28 14:00] VITALS: BP 137/59
[2022-05-28 20:12] VITALS: BP 165/78
[2022-05-28] MEDS: FINASTERIDE 5MG TAB PO SCH (20:47)
[2022-05-28] MEDS: FUROSEMIDE 40 MG TAB PO SCH (20:47)
[2022-05-28] MEDS: ATORVASTATIN 20 MG TAB PO SCH (20:47)
[2022-05-28] MEDS: ASPIRIN 81MG ENTERIC TABLET PO SCH (20:48)
[2022-05-29 05:43] VITALS: BP 156/65
[2022-05-29] MEDS: HEPARIN SOD (PORCINE) 5000UNITS/ML 1ML VIAL/SYRINGE SC SCH ×3 (06:29→21:07)
[2022-05-29] MEDS: DOCUSATE SODIUM 100MG CAPSULE PO SCH ×2 (08:36→21:01)
[2022-05-29] MEDS: LEVEMIR (INSULIN DETEMIR) 1 UNITS/0.01ML SC SCH (08:36)
[2022-05-29] MEDS: INSULIN LISPRO (NovoLOG) PER UNIT SC SCH ×4 (08:36→21:00)
[2022-05-29] MEDS: TAMSULOSIN 0.4 MG CAP PO SCH ×2 (08:36→21:01)
[2022-05-29 08:40] LABS: CALCIUM LEVEL 9.5 MG/DL (8.8-10.2); CREATININE FOR GFR 2.26 MG/DL (0.70-1.30); GLOMERULAR FILTRATION RATE 29.9 (>35); POTASSIUM SERUM 4.6 MEQ/L (3.5-5.1)
[2022-05-29] MEDS: VANCOMYCIN HCL 1,000 MG, VIAL MATE ADAPTER 1 EACH in D5W 250 ML IV SCH (09:47)
[2022-05-29] MEDS ORDERED: PIPERACILLIN/TAZOBACTAM SOD 2.25 GM in D5W MINI-BAG PLUS 50 ML IV SCH (12:30)
[2022-05-29 12:55] LABS: BASO # 0.1 10^3/uL (0.0-0.2); BASO % 0.8 % (0.0-1.0); EOS # 0.3 10^3/uL (0.0-0.5); EOS % 2.8 % (0.0-3.0); HEMATOCRIT 48.9 % (42.0-52.0); HEMOGLOBIN 15.9 g/dl (13.5-17.5); LYMPH # 1.9 10^3/uL (1.5-5.0); LYMPH % 19.3 % (24.0-44.0); MEAN CORPUSCULAR HEMOGLOBIN 27.5 pg (27.0-33.0); MEAN CORPUSCULAR HGB CONC 32.5 g/dl (32.0-36.5); MEAN CORPUSCULAR VOLUME 84.5 fl (80.0-96.0); MONO # 1.3 10^3/uL (0.0-0.8); MONO % 13.5 % (2.0-8.0); NEUTROPHILS # 6.1 10^3/uL (1.5-8.5); NEUTROPHILS % 63.1 % (36.0-66.0); PLATELET COUNT, AUTOMATED 251 10^3/uL (150-450); RED BLOOD COUNT 5.79 10^6/uL (4.30-6.10); WHITE BLOOD COUNT 9.7 10^3/uL (4.0-10.0)
[2022-05-29] MEDS ORDERED: LevoFLOXacin IV 750 MG in IV 1 EA IV SCH (13:00)
[2022-05-29] MEDS ORDERED: LIDOCAINE 1% MDV 20ML VIAL As Ordered ONE (13:02)
[2022-05-29 13:25] LABS: CALCIUM LEVEL 9.3 MG/DL (8.8-10.2); CREATININE FOR GFR 2.25 MG/DL (0.70-1.30); POTASSIUM SERUM 3.9 MEQ/L (3.5-5.1)
[2022-05-29] MEDS ORDERED: SODIUM CHLORIDE 0.9% INJ 10 ML SYR IV PRN ×2 (16:00)
[2022-05-29] MEDS: SODIUM CHLORIDE 0.9% INJ 10 ML SYR IV SCH (17:36)
[2022-05-29] MEDS ORDERED: SODIUM CHLORIDE 0.9% INJ 10 ML SYR IV SCH (18:00)
[2022-05-29 20:00] VITALS: BP 154/68
[2022-05-29] MEDS: ATORVASTATIN 20 MG TAB PO SCH (21:01)
[2022-05-29] MEDS: ASPIRIN 81MG ENTERIC TABLET PO SCH (21:01)
[2022-05-29] MEDS: FINASTERIDE 5MG TAB PO SCH (21:01)
[2022-05-29] MEDS: FUROSEMIDE 40 MG TAB PO SCH (21:01)
[2022-05-29] MEDS: LATANOPROST 0.005% OPHTH SOLN 2.5 ML OU SCH (21:02)
[2022-05-30] MEDS: HEPARIN SOD (PORCINE) 5000UNITS/ML 1ML VIAL/SYRINGE SC SCH ×3 (05:14→20:28)
[2022-05-30] MEDS: SODIUM CHLORIDE 0.9% INJ 10 ML SYR IV SCH ×2 (05:15→17:23)
[2022-05-30 05:35] VITALS: BP 127/57
[2022-05-30] MEDS: DOCUSATE SODIUM 100MG CAPSULE PO SCH ×2 (07:40→20:21)
[2022-05-30] MEDS: INSULIN LISPRO (NovoLOG) PER UNIT SC SCH ×4 (07:41→20:28)
[2022-05-30] MEDS: TAMSULOSIN 0.4 MG CAP PO SCH ×2 (07:41→20:22)
[2022-05-30] MEDS: LEVEMIR (INSULIN DETEMIR) 1 UNITS/0.01ML SC SCH (07:42)
[2022-05-30 08:48] LABS: BASO # 0.1 10^3/uL (0.0-0.2); BASO % 0.8 % (0.0-1.0); EOS # 0.3 10^3/uL (0.0-0.5); EOS % 2.7 % (0.0-3.0); HEMATOCRIT 49.6 % (42.0-52.0); HEMOGLOBIN 16.2 g/dl (13.5-17.5); LYMPH # 1.9 10^3/uL (1.5-5.0); LYMPH % 18.5 % (24.0-44.0); MEAN CORPUSCULAR HGB CONC 32.7 g/dl (32.0-36.5); MEAN CORPUSCULAR VOLUME 82.8 fl (80.0-96.0); MONO # 1.1 10^3/uL (0.0-0.8); MONO % 10.8 % (2.0-8.0); NEUTROPHILS # 6.7 10^3/uL (1.5-8.5); NEUTROPHILS % 66.6 % (36.0-66.0); PLATELET COUNT, AUTOMATED 262 10^3/uL (150-450); RED BLOOD COUNT 5.99 10^6/uL (4.30-6.10); WHITE BLOOD COUNT 10.1 10^3/uL (4.0-10.0)
[2022-05-30 09:08] LABS: ERYTHROCYTE SEDIMENTATION RATE 27 mm/hr (0-20)
[2022-05-30 09:16] LABS: C REACTIVE PROTEIN QUANTITATIV 1.85 MG/DL (0.00-0.30); CALCIUM LEVEL 9.2 MG/DL (8.8-10.2); CREATININE FOR GFR 2.67 MG/DL (0.70-1.30); GLOMERULAR FILTRATION RATE 24.6 (>35); POTASSIUM SERUM 4.7 MEQ/L (3.5-5.1)
[2022-05-30] MEDS: CEPHALEXIN 500 MG CAP PO SCH ×3 (09:29→20:22)
[2022-05-30 14:00] VITALS: BP 126/63
[2022-05-30] MEDS: ATORVASTATIN 20 MG TAB PO SCH (20:21)
[2022-05-30] MEDS: FUROSEMIDE 40 MG TAB PO SCH (20:22)
[2022-05-30] MEDS: ASPIRIN 81MG ENTERIC TABLET PO SCH (20:22)
[2022-05-30] MEDS: LATANOPROST 0.005% OPHTH SOLN 2.5 ML OU SCH (20:22)
[2022-05-30] MEDS: FINASTERIDE 5MG TAB PO SCH (20:22)
[2022-05-30 21:55] VITALS: BP 139/78
[2022-05-31] MEDS: SODIUM CHLORIDE 0.9% INJ 10 ML SYR IV SCH (05:09)
[2022-05-31] MEDS: HEPARIN SOD (PORCINE) 5000UNITS/ML 1ML VIAL/SYRINGE SC SCH (05:10)
[2022-05-31 06:00] VITALS: BP 138/97
[2022-05-31] MEDS ORDERED: LevoFLOXacin 750 MG TABLET PO SCH (06:00)
[2022-05-31 07:49] LABS: BASO # 0.1 10^3/uL (0.0-0.2); BASO % 0.8 % (0.0-1.0); EOS # 0.4 10^3/uL (0.0-0.5); EOS % 3.7 % (0.0-3.0); HEMATOCRIT 51.7 % (42.0-52.0); HEMOGLOBIN 16.5 g/dl (13.5-17.5); LYMPH # 2.6 10^3/uL (1.5-5.0); LYMPH % 25.6 % (24.0-44.0); MEAN CORPUSCULAR HEMOGLOBIN 26.7 pg (27.0-33.0); MEAN CORPUSCULAR HGB CONC 31.9 g/dl (32.0-36.5); MEAN CORPUSCULAR VOLUME 83.5 fl (80.0-96.0); MONO % 9.9 % (2.0-8.0); NEUTROPHILS # 5.9 10^3/uL (1.5-8.5); NEUTROPHILS % 59.3 % (36.0-66.0); PLATELET COUNT, AUTOMATED 261 10^3/uL (150-450); RED BLOOD COUNT 6.19 10^6/uL (4.30-6.10)
[2022-05-31 08:09] LABS: ERYTHROCYTE SEDIMENTATION RATE 27 mm/hr (0-20)
[2022-05-31] MEDS: INSULIN LISPRO (NovoLOG) PER UNIT SC SCH ×2 (08:17→12:05)
[2022-05-31] MEDS: DOCUSATE SODIUM 100MG CAPSULE PO SCH (08:18)
[2022-05-31] MEDS: TAMSULOSIN 0.4 MG CAP PO SCH (08:18)
[2022-05-31] MEDS: LEVEMIR (INSULIN DETEMIR) 1 UNITS/0.01ML SC SCH (08:18)
[2022-05-31] MEDS: CEPHALEXIN 500 MG CAP PO SCH (08:18)
[2022-05-31 08:23] LABS: C REACTIVE PROTEIN QUANTITATIV 1.38 MG/DL (0.00-0.30); CALCIUM LEVEL 9.7 MG/DL (8.8-10.2); CREATININE FOR GFR 2.42 MG/DL (0.70-1.30); GLOMERULAR FILTRATION RATE 27.6 (>35); POTASSIUM SERUM 4.6 MEQ/L (3.5-5.1)
[2022-05-31] MEDS ORDERED: BACITAB PO (10:00)
[2022-05-31] MEDS ORDERED: LEVO1TAB40 PO (10:00)
[2022-05-31] MEDS ORDERED: CEPH500C PO (10:00)
== END 2022-05-31 13:15 | disposition home health service (06) | DRG 638 ==
LOC: M ED 14:20 → M ED INP 21:13 → ENRESERV 22:45 → M MS5PR 05-28 01:10
PROVIDERS: ADMIT Family Medicine; ATTEND Family Medicine
PROC: 02HV33Z Insertion of Infusion Device into Superior Vena Cava, Percutaneous Approach (ICD-10-PCS; 2022-05-29)
PROC: 0JBQ0ZX Excision of Right Foot Subcutaneous Tissue and Fascia, Open Approach, Diagnostic (ICD-10-PCS; principal; 2022-05-29 15:00)
DX: E11.621 Type 2 diabetes mellitus with foot ulcer (principal); I13.0 Hypertensive heart and chronic kidney disease with heart failure and stage 1 through stage 4 chronic kidney disease, or unspecified chronic kidney disease; I50.32 Chronic diastolic (congestive) heart failure; L03.115 Cellulitis of right lower limb; L97.519 Non-pressure chronic ulcer of other part of right foot with unspecified severity; E78.5 Hyperlipidemia, unspecified; N18.30 Chronic kidney disease, stage 3 unspecified; E11.22 Type 2 diabetes mellitus with diabetic chronic kidney disease; Z86.73 Personal history of transient ischemic attack (TIA), and cerebral infarction without residual deficits; Z95.0 Presence of cardiac pacemaker; N40.1 Benign prostatic hyperplasia with lower urinary tract symptoms; E11.51 Type 2 diabetes mellitus with diabetic peripheral angiopathy without gangrene; I73.9 Peripheral vascular disease, unspecified; K21.9 Gastro-esophageal reflux disease without esophagitis; Z98.41 Cataract extraction status, right eye; Z98.42 Cataract extraction status, left eye; Z87.891 Personal history of nicotine dependence; E11.622 Type 2 diabetes mellitus with other skin ulcer; I25.10 Atherosclerotic heart disease of native coronary artery without angina pectoris; Z20.822 Contact with and (suspected) exposure to COVID-19; Z79.82 Long term (current) use of aspirin; Z79.2 Long term (current) use of antibiotics; Z79.4 Long term (current) use of insulin; Z79.899 Other long term (current) drug therapy; Z88.0 Allergy status to penicillin; Z91.030 Bee allergy status; E11.42 Type 2 diabetes mellitus with diabetic polyneuropathy; E66.9 Obesity, unspecified; Z68.36 Body mass index [BMI] 36.0-36.9, adult; M54.9 Dorsalgia, unspecified; G89.29 Other chronic pain; B95.8 Unspecified staphylococcus as the cause of diseases classified elsewhere; B96.5 Pseudomonas (aeruginosa) (mallei) (pseudomallei) as the cause of diseases classified elsewhere

== ENCOUNTER → 2022-06-22 | Outpatient (REF) | payer MEDICARE ==
[~2022-06-22] MED LIST changes: +BACITAB PO; +CEPH500C PO; +LEVO1TAB40 PO
[2022-06-22 13:56] LABS: BASO # 0.1 10^3/uL (0.0-0.2); BASO % 0.8 % (0.0-1.0); EOS # 0.3 10^3/uL (0.0-0.5); EOS % 2.5 % (0.0-3.0); HEMATOCRIT 51.1 % (42.0-52.0); HEMOGLOBIN 16.4 g/dl (13.5-17.5); LYMPH # 2.5 10^3/uL (1.5-5.0); LYMPH % 22.3 % (24.0-44.0); MEAN CORPUSCULAR HEMOGLOBIN 27.3 pg (27.0-33.0); MEAN CORPUSCULAR HGB CONC 32.1 g/dl (32.0-36.5); MEAN CORPUSCULAR VOLUME 85.2 fl (80.0-96.0); MONO # 1.2 10^3/uL (0.0-0.8); MONO % 10.4 % (2.0-8.0); NEUTROPHILS % 63.5 % (36.0-66.0); PLATELET COUNT, AUTOMATED 238 10^3/uL (150-450); WHITE BLOOD COUNT 11.1 10^3/uL (4.0-10.0)
[2022-06-22 15:01] LABS: ALBUMIN 3.8 GM/DL (3.2-5.2); BILIRUBIN,TOTAL 0.4 MG/DL (0.2-1.0); CALCIUM LEVEL 9.7 MG/DL (8.8-10.2); CHOLESTEROL RISK RATIO 5.323 (<5); CREATININE FOR GFR 2.48 MG/DL (0.70-1.30); GLOMERULAR FILTRATION RATE 26.8 (>35); POTASSIUM SERUM 5.2 MEQ/L (3.5-5.1); THYROID STIMULATING HORMONE 2.51 uIU/ML (0.358-3.740); TOTAL PROTEIN 7.9 GM/DL (6.4-8.2)
[2022-06-22 15:26] LABS: CREATININE, URINE 85.8 MG/DL; MAU/CREAT RATIO 552.4 MCG/MG (0.0-30.0)
[2022-06-22 17:34] LABS: HEMOGLOBIN A1c 9.1 %
== END ==
LOC: M SFHCADAM 10:02
PROVIDERS: ATTEND Physician Assistant Medical
DX: E11.621 Type 2 diabetes mellitus with foot ulcer (principal); E78.2 Mixed hyperlipidemia; E66.01 Morbid (severe) obesity due to excess calories

== ENCOUNTER → 2022-09-25 | Outpatient (CLI) | payer MEDICARE ==
[~2022-09-25] MED LIST changes: +ELIQ2.5T
== END ==
LOC: M RAD 07:15
PROVIDERS: ATTEND Internal Medicine Hematology & Oncology
DX: D45 Polycythemia vera (principal); K80.20 Calculus of gallbladder without cholecystitis without obstruction; N13.30 Unspecified hydronephrosis

== ENCOUNTER → 2022-12-14 | Outpatient (REF) | payer MEDICARE ==
[2022-12-14 15:52] LABS: ALBUMIN 3.8 G/DL (3.2-5.2); BILIRUBIN,TOTAL 0.4 MG/DL (0.3-1.2); CALCIUM LEVEL 9.7 MG/DL (8.3-10.6); CHOLESTEROL RISK RATIO 4.5 (<5); CREATININE FOR GFR 2.32 MG/DL (0.70-1.30); HDL CHOLESTEROL 31.1 MG/DL (>40); LDL CHOLESTEROL 71.3 MG/DL (<100); POTASSIUM SERUM 4.7 MMOL/L (3.5-5.1); THYROID STIMULATING HORMONE 3.138 uIU/ML (0.55-4.78); TOTAL PROTEIN 7.5 G/DL (5.7-8.2)
== END ==
LOC: M SFHCADAM 08:46
PROVIDERS: ATTEND Physician Assistant Medical
DX: E11.621 Type 2 diabetes mellitus with foot ulcer (principal); N18.4 Chronic kidney disease, stage 4 (severe); I11.0 Hypertensive heart disease with heart failure

== ENCOUNTER → 2023-02-23 | Outpatient (REF) | payer MEDICARE | LOC: M LAB REF 16:55 | PROVIDERS: ATTEND Nurse Practitioner Family | DX: N39.0 Urinary tract infection, site not specified (principal) ==

== ENCOUNTER → 2023-06-21 | Outpatient (REF) | payer MEDICARE | LOC: M SFHCADAM 15:31 | PROVIDERS: ATTEND Physician Assistant Medical | DX: E11.22 Type 2 diabetes mellitus with diabetic chronic kidney disease (principal); N18.4 Chronic kidney disease, stage 4 (severe); E78.2 Mixed hyperlipidemia ==

== ENCOUNTER → 2023-07-01 | Outpatient (REF) | payer MEDICARE ==
[2023-07-01 18:51] LABS: BASO # 0.1 10^3/uL (0.0-0.2); BASO % 0.6 % (0.0-1.0); EOS # 0.4 10^3/uL (0.0-0.5); EOS % 3.3 % (0.0-3.0); HEMATOCRIT 52.2 % (42.0-52.0); HEMOGLOBIN 16.7 g/dl (13.5-17.5); LYMPH # 2.6 10^3/uL (1.5-5.0); LYMPH % 20.8 % (24.0-44.0); MEAN CORPUSCULAR HEMOGLOBIN 27.4 pg (27.0-33.0); MEAN CORPUSCULAR VOLUME 85.7 fl (80.0-96.0); MONO # 1.3 10^3/uL (0.0-0.8); MONO % 10.4 % (2.0-8.0); NEUTROPHILS # 8.1 10^3/uL (1.5-8.5); NEUTROPHILS % 64.5 % (36.0-66.0); PLATELET COUNT, AUTOMATED 260 10^3/uL (150-450); RED BLOOD COUNT 6.09 10^6/uL (4.30-6.10); WHITE BLOOD COUNT 12.6 10^3/uL (4.0-10.0)
[2023-07-01 18:57] LABS: ALBUMIN 3.8 G/DL (3.2-5.2); BILIRUBIN,TOTAL 0.4 MG/DL (0.3-1.2); CALCIUM LEVEL 9.8 MG/DL (8.3-10.6); CHOLESTEROL RISK RATIO 4.71 (<5); CREATININE FOR GFR 2.24 MG/DL (0.70-1.30); CREATININE, URINE 34.9 MG/DL; GLOMERULAR FILTRATION RATE 30.1 (>35); HDL CHOLESTEROL 29.7 MG/DL (>40); LDL CHOLESTEROL 70.9 MG/DL (<100); MAU/CREAT RATIO 578.7 MCG/MG (0.0-30.0); NON-HDL-C 110.3 MG/DL; POTASSIUM SERUM 5.1 MMOL/L (3.5-5.1); TOTAL PROTEIN 7.4 G/DL (5.7-8.2)
[2023-07-01 19:00] LABS: TOTAL 25(OH) VITAMIN D 45.6 NG/ML (20.0-100.0)
[2023-07-01 19:02] LABS: THYROID STIMULATING HORMONE 2.863 uIU/ML (0.55-4.78)
[2023-07-01 19:34] LABS: HEMOGLOBIN A1c 6.9 % (4.0-6.0)
== END ==
LOC: M SFHCADAM 17:44
PROVIDERS: ATTEND Physician Assistant Medical
DX: E11.22 Type 2 diabetes mellitus with diabetic chronic kidney disease (principal); N18.4 Chronic kidney disease, stage 4 (severe); E78.2 Mixed hyperlipidemia

== ENCOUNTER 2023-07-28 11:51 | Day surgery (SDC) | payer MEDICARE ==
[~2023-07-28] VITALS: Ht 177.8 cm; Wt 115.9 kg
[~2023-07-28 11:51] MED LIST changes: +BSS IRRIG/VANCO(10MG)/TOBRA(5MG)/EPINEPH(1:1000-0.5CC)500ML BAG-ORONLY IR ONE; +CYCLOPENTOLATE 1% OPHTH SOLN 2ML BTL OD SCH; +LIDOCAINE 1% SDV 5ML VIAL As Ordered ONE; +LIDOCAINE 3.5 % 1ML OPHTH TOPICAL GEL OU ONE; +OFLOXACIN 0.3 % (OCUFLOX) OPTH SOL 5ML OD ONE; +PHENYLEPHRINE 10% OPHTH SOL 5ML OD PRN; +PHENYLEPHRINE 2.5% OPHTH SOL 2ML OD SCH; +TOBRADEX OPHTH OINT 3.5 GM As Ordered ONE; +TROPICAMIDE 1% OPHTH SOLN 15ML OD SCH; +XELP0.00 OD; +mitoMYcin 0.2 MG/VIAL KIT FOR OPHTHALMIC USE As Ordered ONE
[2023-07-28] MEDS ORDERED: fentaNYL 100 MCG/2 ML INJECTION As Ordered ONE (12:34)
[2023-07-28 14:10] VITALS: BP 163/82; TEMP 97.7; O2SAT 98
== END 2023-07-28 14:36 | disposition home or self-care (01) ==
LOC: M SDC 11:51
PROVIDERS: ATTEND Ophthalmology
DX: H40.9 Unspecified glaucoma (principal); E11.22 Type 2 diabetes mellitus with diabetic chronic kidney disease; N18.4 Chronic kidney disease, stage 4 (severe); I12.9 Hypertensive chronic kidney disease with stage 1 through stage 4 chronic kidney disease, or unspecified chronic kidney disease; Z87.891 Personal history of nicotine dependence; Z95.0 Presence of cardiac pacemaker; Z79.899 Other long term (current) drug therapy; Z79.01 Long term (current) use of anticoagulants; Z79.4 Long term (current) use of insulin
CPT/HCPCS: 66183; C1783; J3010; J7315

== ENCOUNTER 2023-10-30 12:41 | Inpatient (IN) | payer MEDICARE ==
[~2023-10-30] VITALS: Ht 177.8 cm; Wt 111.4 kg
[~2023-10-30 12:41] MED LIST changes: -BSS IRRIG/VANCO(10MG)/TOBRA(5MG)/EPINEPH(1:1000-0.5CC)500ML BAG-ORONLY IR ONE; -CYCLOPENTOLATE 1% OPHTH SOLN 2ML BTL OD SCH; -ELIQ2.5T; +ELIQ2.5T PO; -LIDOCAINE 1% SDV 5ML VIAL As Ordered ONE; -LIDOCAINE 3.5 % 1ML OPHTH TOPICAL GEL OU ONE; -OFLOXACIN 0.3 % (OCUFLOX) OPTH SOL 5ML OD ONE; -PHENYLEPHRINE 10% OPHTH SOL 5ML OD PRN; -PHENYLEPHRINE 2.5% OPHTH SOL 2ML OD SCH; -TOBRADEX OPHTH OINT 3.5 GM As Ordered ONE; -TROPICAMIDE 1% OPHTH SOLN 15ML OD SCH; -XELP0.00 OD; +XELP0.00 OU; -mitoMYcin 0.2 MG/VIAL KIT FOR OPHTHALMIC USE As Ordered ONE
[2023-10-30 13:32] LABS: VENOUS BASE EXCESS -7.6 (-2.0-2.0); VENOUS HCO3 16.9 MMOL/L (23.0-27.0); VENOUS O2 SATURATION 94.7 % (60.0-80.0); VENOUS PARTIAL PRESSURE CO2 32.3 mmHg (38.0-50.0); VENOUS PARTIAL PRESSURE O2 69.5 mmHg (30.0-50.0); VENOUS PH 7.337 UNITS (7.330-7.430); VENOUS STANDARD HCO3 18.4 MMOL/L; VENOUS TOTAL CO2 17.9 MMOL/L (24.0-28.0)
[2023-10-30 13:36] LABS: BASO # 0.1 10^3/uL (0.0-0.2); BASO % 0.5 % (0.0-1.0); EOS # 0.1 10^3/uL (0.0-0.5); EOS % 0.8 % (0.0-3.0); HEMATOCRIT 46.4 % (42.0-52.0); HEMOGLOBIN 15.7 g/dl (13.5-17.5); LYMPH # 1.4 10^3/uL (1.5-5.0); LYMPH % 10.8 % (24.0-44.0); MEAN CORPUSCULAR HEMOGLOBIN 28.5 pg (27.0-33.0); MEAN CORPUSCULAR HGB CONC 33.8 g/dl (32.0-36.5); MEAN CORPUSCULAR VOLUME 84.4 fl (80.0-96.0); MONO # 1.4 10^3/uL (0.0-0.8); MONO % 11.2 % (2.0-8.0); NEUTROPHILS # 9.7 10^3/uL (1.5-8.5); NEUTROPHILS % 76.2 % (36.0-66.0); PLATELET COUNT, AUTOMATED 283 10^3/uL (150-450); WHITE BLOOD COUNT 12.8 10^3/uL (4.0-10.0)
[2023-10-30 14:02] LABS: ALBUMIN 3.2 G/DL (3.2-5.2); BILIRUBIN,DIRECT 0.1 MG/DL (<0.4); BILIRUBIN,TOTAL 0.3 MG/DL (0.3-1.2); CALCIUM LEVEL 8.9 MG/DL (8.3-10.6); CREATININE FOR GFR 2.79 MG/DL (0.70-1.30); GLOMERULAR FILTRATION RATE 23.4 (>35); TOTAL PROTEIN 6.9 G/DL (5.7-8.2)
[2023-10-30 14:04] LABS: THYROID STIMULATING HORMONE 2.433 uIU/ML (0.55-4.78)
[2023-10-30] MEDS ORDERED: GLUCOSE 4GM CHEW TABLET PO PRN (15:50)
[2023-10-30] MEDS ORDERED: DEXTROSE 50% 50ML SYRINGE IV PRN (15:50)
[2023-10-30] MEDS ORDERED: HEPARIN SOD (PORCINE) 5000UNITS/ML 1ML VIAL/SYRINGE SC SCH (15:50)
[2023-10-30] MEDS ORDERED: GLUCAGON INJ 1MG VIAL SC PRN (15:50)
[2023-10-30] MEDS ORDERED: MED REC IN PROGRESS XX SCH (15:55)
[2023-10-30] MEDS ORDERED: NS 1,000 ML IV SCH (16:30)
[2023-10-30 17:00] VITALS: BP 115/76; TEMP 98.2; O2SAT 98
[2023-10-30] MEDS ORDERED: THERTAB52 PO (17:14)
[2023-10-30] MEDS: INSULIN LISPRO (NovoLOG) PER UNIT SC SCH ×2 (17:53→21:00)
[2023-10-30] MEDS: ACETAMINOPHEN 500 MG TAB PO SCH (17:53)
[2023-10-30] MEDS: D5W/0.45% SODIUM CHLORIDE 1,000 ML IV SCH (17:53)
[2023-10-30] MEDS ORDERED: TOUJ1.2I SC (18:41)
[2023-10-30] MEDS ORDERED: BIMA01SOL OU (18:41)
[2023-10-30] MEDS ORDERED: HOME MED LIST COMPLETE! XX SCH (18:50)
[2023-10-30] MEDS ORDERED: cefTRIAXone SOD 1 GM in D5W MINI-BAG PLUS 50 ML IV SCH (20:00)
[2023-10-30] MEDS ORDERED: COMB0.2S OU (20:37)
[2023-10-30 21:19] VITALS: BP 124/70; TEMP 98.2; O2SAT 97
[2023-10-30] MEDS: ASPIRIN 81MG ENTERIC TABLET PO SCH (21:57)
[2023-10-30] MEDS: APIXABAN 2.5 MG TAB (ELIQUIS) PO SCH (21:57)
[2023-10-30] MEDS: TAMSULOSIN 0.4 MG CAP PO SCH (21:57)
[2023-10-30] MEDS: FINASTERIDE 5MG TAB PO SCH (21:57)
[2023-10-30] MEDS: ATORVASTATIN 20 MG TAB PO SCH (21:58)
[2023-10-30] MEDS: LIDOCAINE 5% (LIDODERM) PATCH TD SCH (21:59)
[2023-10-30] MEDS: LATANOPROST 0.005% OPHTH SOLN 2.5 ML OU SCH (22:07)
[2023-10-31] MEDS: ACETAMINOPHEN 500 MG TAB PO SCH ×4 (00:14→17:31)
[2023-10-31 05:59] VITALS: BP 141/84; TEMP 98.6; O2SAT 97
[2023-10-31 06:19] LABS: HEMATOCRIT 44.9 % (42.0-52.0); HEMOGLOBIN 15.1 g/dl (13.5-17.5); MEAN CORPUSCULAR HEMOGLOBIN 28.6 pg (27.0-33.0); MEAN CORPUSCULAR HGB CONC 33.6 g/dl (32.0-36.5); PLATELET COUNT, AUTOMATED 292 10^3/uL (150-450); RED BLOOD COUNT 5.28 10^6/uL (4.30-6.10)
[2023-10-31 06:40] LABS: CALCIUM LEVEL 9.3 MG/DL (8.3-10.6); CREATININE FOR GFR 2.66 MG/DL (0.70-1.30); GLOMERULAR FILTRATION RATE 24.7 (>35); POTASSIUM SERUM 3.9 MMOL/L (3.5-5.1)
[2023-10-31] MEDS: D5W/0.45% SODIUM CHLORIDE 1,000 ML IV SCH (06:58)
[2023-10-31] MEDS: TAMSULOSIN 0.4 MG CAP PO SCH ×2 (08:26→21:10)
[2023-10-31] MEDS: INSULIN LISPRO (NovoLOG) PER UNIT SC SCH ×4 (08:27→21:00)
[2023-10-31] MEDS: LEVEMIR (INSULIN DETEMIR) 1 UNITS/0.01ML SC SCH (08:27)
[2023-10-31] MEDS ORDERED: LR 1,000 ML IV ONE (10:05)
[2023-10-31] MEDS: LR 1,000 ML IV SCH (11:52)
[2023-10-31] MEDS: APIXABAN 2.5 MG TAB (ELIQUIS) PO SCH ×2 (12:59→21:10)
[2023-10-31 14:00] VITALS: BP 152/64; TEMP 98.2; O2SAT 98
[2023-10-31 17:21] LABS: C REACTIVE PROTEIN QUANTITATIV 7.5 MG/DL (<1.0)
[2023-10-31 17:22] LABS: CREATININE FOR GFR 2.63 MG/DL (0.70-1.30); POTASSIUM SERUM 4.1 MMOL/L (3.5-5.1)
[2023-10-31] MEDS: MEROPENEM INJ 1 GM in IV 1 EA IV SCH (17:31)
[2023-10-31 17:34] LABS: PROCALCITONIN 0.39 ng/ml
[2023-10-31 21:01] VITALS: BP 145/68; TEMP 99; O2SAT 96
[2023-10-31] MEDS: LIDOCAINE 5% (LIDODERM) PATCH TD SCH (21:09)
[2023-10-31] MEDS: ATORVASTATIN 20 MG TAB PO SCH (21:10)
[2023-10-31] MEDS: FINASTERIDE 5MG TAB PO SCH (21:10)
[2023-10-31] MEDS: QUEtiapine FUMARATE 12.5 MG HALF-TAB PO SCH (21:10)
[2023-10-31] MEDS: ASPIRIN 81MG ENTERIC TABLET PO SCH (21:10)
[2023-10-31] MEDS: LATANOPROST 0.005% OPHTH SOLN 2.5 ML OU SCH (21:10)
[2023-11-01] MEDS: ACETAMINOPHEN 500 MG TAB PO SCH ×5 (00:12→23:06)
[2023-11-01 00:53] LABS: VENOUS BASE EXCESS -7.4 (-2.0-2.0); VENOUS HCO3 15.3 MMOL/L (23.0-27.0); VENOUS O2 SATURATION 99.1 % (60.0-80.0); VENOUS PARTIAL PRESSURE CO2 25.1 mmHg (38.0-50.0); VENOUS PARTIAL PRESSURE O2 133.3 mmHg (30.0-50.0); VENOUS PH 7.403 UNITS (7.330-7.430); VENOUS STANDARD HCO3 18.6 MMOL/L; VENOUS TOTAL CO2 16.1 MMOL/L (24.0-28.0)
[2023-11-01 01:21] LABS: CALCIUM LEVEL 9.2 MG/DL (8.3-10.6); CREATININE FOR GFR 2.56 MG/DL (0.70-1.30); GLOMERULAR FILTRATION RATE 25.8 (>35); MAGNESIUM LEVEL 2.2 MG/DL (1.8-2.4); POTASSIUM SERUM 4.2 MMOL/L (3.5-5.1)
[2023-11-01] MEDS: LR 1,000 ML IV SCH (01:47)
[2023-11-01 05:01] VITALS: BP 134/68; TEMP 98.8; O2SAT 98
[2023-11-01] MEDS: MEROPENEM INJ 1 GM in IV 1 EA IV SCH (05:04)
[2023-11-01] MEDS: INSULIN LISPRO (NovoLOG) PER UNIT SC SCH ×4 (07:30→20:54)
[2023-11-01 08:16] LABS: HEMATOCRIT 44.6 % (42.0-52.0); HEMOGLOBIN 14.9 g/dl (13.5-17.5); MEAN CORPUSCULAR HEMOGLOBIN 28.6 pg (27.0-33.0); MEAN CORPUSCULAR HGB CONC 33.4 g/dl (32.0-36.5); MEAN CORPUSCULAR VOLUME 85.6 fl (80.0-96.0); PLATELET COUNT, AUTOMATED 303 10^3/uL (150-450); RED BLOOD COUNT 5.21 10^6/uL (4.30-6.10); WHITE BLOOD COUNT 13.5 10^3/uL (4.0-10.0)
[2023-11-01 08:37] LABS: CALCIUM LEVEL 9.3 MG/DL (8.3-10.6); CREATININE FOR GFR 2.56 MG/DL (0.70-1.30); GLOMERULAR FILTRATION RATE 25.8 (>35); POTASSIUM SERUM 3.8 MMOL/L (3.5-5.1)
[2023-11-01] MEDS: APIXABAN 2.5 MG TAB (ELIQUIS) PO SCH ×2 (11:42→20:54)
[2023-11-01] MEDS: LEVEMIR (INSULIN DETEMIR) 1 UNITS/0.01ML SC SCH (11:42)
[2023-11-01] MEDS: TAMSULOSIN 0.4 MG CAP PO SCH ×2 (11:42→20:53)
[2023-11-01] MEDS: NS 0.45% 1,000 ML IV SCH ×2 (11:42→20:56)
[2023-11-01 14:00] VITALS: BP 153/66; TEMP 97.4; O2SAT 97
[2023-11-01] MEDS ORDERED: cefTRIAXone SOD 1 GM in D5W MINI-BAG PLUS 50 ML IV SCH (17:00)
[2023-11-01] MEDS: LIDOCAINE 5% (LIDODERM) PATCH TD SCH (20:53)
[2023-11-01] MEDS: LATANOPROST 0.005% OPHTH SOLN 2.5 ML OU SCH (20:54)
[2023-11-01] MEDS: QUEtiapine FUMARATE 12.5 MG HALF-TAB PO SCH (20:54)
[2023-11-01] MEDS: ATORVASTATIN 20 MG TAB PO SCH (20:54)
[2023-11-01] MEDS: ASPIRIN 81MG ENTERIC TABLET PO SCH (20:54)
[2023-11-01] MEDS: FINASTERIDE 5MG TAB PO SCH (20:54)
[2023-11-01 21:00] VITALS: BP 177/77; TEMP 99.5; O2SAT 98
[2023-11-01 22:00] VITALS: BP 177/77; TEMP 99.5; O2SAT 98
[2023-11-01 23:09] VITALS: BP 169/74
[2023-11-02] MEDS: ACETAMINOPHEN 500 MG TAB PO SCH (05:02)
[2023-11-02 05:25] VITALS: BP 136/81; TEMP 97.2; O2SAT 97
[2023-11-02 05:51] LABS: HEMATOCRIT 44.2 % (42.0-52.0); HEMOGLOBIN 14.1 g/dl (13.5-17.5); MEAN CORPUSCULAR HEMOGLOBIN 27.6 pg (27.0-33.0); MEAN CORPUSCULAR HGB CONC 31.9 g/dl (32.0-36.5); MEAN CORPUSCULAR VOLUME 86.7 fl (80.0-96.0); PLATELET COUNT, AUTOMATED 300 10^3/uL (150-450); WHITE BLOOD COUNT 13.4 10^3/uL (4.0-10.0)
[2023-11-02 06:00] VITALS: BP 136/81; TEMP 97.2; O2SAT 97
[2023-11-02] MEDS: NS 0.45% 1,000 ML IV SCH ×2 (06:22→16:18)
[2023-11-02 06:24] LABS: CALCIUM LEVEL 8.8 MG/DL (8.3-10.6); CREATININE FOR GFR 2.23 MG/DL (0.70-1.30); GLOMERULAR FILTRATION RATE 30.3 (>35); POTASSIUM SERUM 4.2 MMOL/L (3.5-5.1)
[2023-11-02] MEDS: INSULIN LISPRO (NovoLOG) PER UNIT SC SCH ×4 (06:49→19:38)
[2023-11-02] MEDS: TAMSULOSIN 0.4 MG CAP PO SCH ×2 (08:17→19:52)
[2023-11-02] MEDS: APIXABAN 2.5 MG TAB (ELIQUIS) PO SCH ×2 (08:17→19:52)
[2023-11-02] MEDS: LEVEMIR (INSULIN DETEMIR) 1 UNITS/0.01ML SC SCH (08:18)
[2023-11-02] MEDS: LIDOCAINE 5% (LIDODERM) PATCH TD SCH ×2 (09:34→19:52)
[2023-11-02 11:11] LABS: C REACTIVE PROTEIN QUANTITATIV 5.7 MG/DL (<1.0)
[2023-11-02 11:13] LABS: ERYTHROCYTE SEDIMENTATION RATE 52 mm/hr (0-20)
[2023-11-02 11:20] LABS: PROCALCITONIN 0.33 ng/ml
[2023-11-02] MEDS: CEFDINIR 300 MG CAP (OMNICEF) PO SCH ×2 (11:52→20:01)
[2023-11-02 14:00] VITALS: BP 149/63; TEMP 98.6; O2SAT 93
[2023-11-02] MEDS ORDERED: OLANZapine INTRAMUSCULAR 10MG VIAL IM ONE (16:25)
[2023-11-02] MEDS: FINASTERIDE 5MG TAB PO SCH (19:51)
[2023-11-02] MEDS: ASPIRIN 81MG ENTERIC TABLET PO SCH (19:51)
[2023-11-02] MEDS: LATANOPROST 0.005% OPHTH SOLN 2.5 ML OU SCH (19:52)
[2023-11-02] MEDS: QUEtiapine FUMARATE 12.5 MG HALF-TAB PO SCH (19:52)
[2023-11-02] MEDS: ATORVASTATIN 20 MG TAB PO SCH (19:52)
[2023-11-02 22:00] VITALS: BP 142/66; TEMP 99.5; O2SAT 95
[2023-11-03] MEDS: NS 0.45% 1,000 ML IV SCH (01:32)
[2023-11-03 06:00] VITALS: BP 164/79; TEMP 98.3; O2SAT 96
[2023-11-03 06:04] LABS: HEMATOCRIT 44.6 % (42.0-52.0); HEMOGLOBIN 14.1 g/dl (13.5-17.5); MEAN CORPUSCULAR HEMOGLOBIN 27.6 pg (27.0-33.0); MEAN CORPUSCULAR HGB CONC 31.6 g/dl (32.0-36.5); MEAN CORPUSCULAR VOLUME 87.5 fl (80.0-96.0); PLATELET COUNT, AUTOMATED 299 10^3/uL (150-450); WHITE BLOOD COUNT 13.1 10^3/uL (4.0-10.0)
[2023-11-03 06:31] LABS: CALCIUM LEVEL 8.9 MG/DL (8.3-10.6); CREATININE FOR GFR 2.13 MG/DL (0.70-1.30); GLOMERULAR FILTRATION RATE 31.9 (>35)
[2023-11-03] MEDS: CEFDINIR 300 MG CAP (OMNICEF) PO SCH ×2 (09:35→19:58)
[2023-11-03] MEDS: INSULIN LISPRO (NovoLOG) PER UNIT SC SCH ×4 (09:35→19:53)
[2023-11-03] MEDS: TAMSULOSIN 0.4 MG CAP PO SCH ×2 (09:35→19:58)
[2023-11-03] MEDS: APIXABAN 2.5 MG TAB (ELIQUIS) PO SCH ×2 (09:35→19:58)
[2023-11-03] MEDS: LEVEMIR (INSULIN DETEMIR) 1 UNITS/0.01ML SC SCH (09:36)
[2023-11-03] MEDS: LIDOCAINE 5% (LIDODERM) PATCH TD SCH ×2 (09:36→19:59)
[2023-11-03] MEDS: SODIUM BICARBONATE 325 MG TAB PO SCH ×2 (13:17→19:58)
[2023-11-03 18:30] VITALS: BP 146/59; TEMP 98.8; O2SAT 96
[2023-11-03] MEDS: ASPIRIN 81MG ENTERIC TABLET PO SCH (19:57)
[2023-11-03] MEDS: ATORVASTATIN 20 MG TAB PO SCH (19:58)
[2023-11-03] MEDS: FINASTERIDE 5MG TAB PO SCH (19:58)
[2023-11-03] MEDS: QUEtiapine FUMARATE 12.5 MG HALF-TAB PO SCH (19:58)
[2023-11-03] MEDS: LATANOPROST 0.005% OPHTH SOLN 2.5 ML OU SCH (19:59)
[2023-11-03 22:00] VITALS: BP 157/70; TEMP 98.8; O2SAT 96
[2023-11-04] MEDS: ACETAMINOPHEN 500 MG TAB PO PRN (03:14)
[2023-11-04 05:18] VITALS: BP 144/76; TEMP 98.4; O2SAT 96
[2023-11-04 06:17] LABS: HEMATOCRIT 43.9 % (42.0-52.0); HEMOGLOBIN 14.2 g/dl (13.5-17.5); MEAN CORPUSCULAR HEMOGLOBIN 27.7 pg (27.0-33.0); MEAN CORPUSCULAR HGB CONC 32.3 g/dl (32.0-36.5); MEAN CORPUSCULAR VOLUME 85.7 fl (80.0-96.0); PLATELET COUNT, AUTOMATED 323 10^3/uL (150-450); RED BLOOD COUNT 5.12 10^6/uL (4.30-6.10)
[2023-11-04 06:40] LABS: CALCIUM LEVEL 8.1 MG/DL (8.3-10.6); CREATININE FOR GFR 2.09 MG/DL (0.70-1.30); GLOMERULAR FILTRATION RATE 32.6 (>35); POTASSIUM SERUM 4.4 MMOL/L (3.5-5.1)
[2023-11-04] MEDS: INSULIN LISPRO (NovoLOG) PER UNIT SC SCH ×4 (07:25→20:53)
[2023-11-04 07:47] LABS: ERYTHROCYTE SEDIMENTATION RATE 57 mm/hr (0-20)
[2023-11-04 07:49] LABS: C REACTIVE PROTEIN QUANTITATIV 11.3 MG/DL (<1.0)
[2023-11-04 08:02] LABS: PROCALCITONIN 0.3 ng/ml
[2023-11-04] MEDS: APIXABAN 2.5 MG TAB (ELIQUIS) PO SCH ×2 (08:05→20:23)
[2023-11-04] MEDS: CEFDINIR 300 MG CAP (OMNICEF) PO SCH (08:05)
[2023-11-04] MEDS: SODIUM BICARBONATE 325 MG TAB PO SCH ×2 (08:05→20:22)
[2023-11-04] MEDS: TAMSULOSIN 0.4 MG CAP PO SCH ×2 (08:05→20:22)
[2023-11-04] MEDS: LIDOCAINE 5% (LIDODERM) PATCH TD SCH ×3 (08:06→20:24)
[2023-11-04] MEDS: LEVEMIR (INSULIN DETEMIR) 1 UNITS/0.01ML SC SCH (08:06)
[2023-11-04] MEDS ORDERED: cefTRIAXone SOD 1 GM in D5W MINI-BAG PLUS 50 ML IV SCH (12:00)
[2023-11-04 14:00] VITALS: BP 145/49; TEMP 99; O2SAT 6; O2SAT 96
[2023-11-04] MEDS: CEFEPIME HCL 2 GM in D5W MINI-BAG PLUS 50 ML IV SCH (16:54)
[2023-11-04 20:00] VITALS: BP 108/69; TEMP 100; O2SAT 94
[2023-11-04] MEDS ORDERED: ACETAMINOPHEN TAB 650MG DOSE (2X325MG) PO ONE (20:05)
[2023-11-04] MEDS: DICLOFENAC EPOLAMINE 1.3% PATCH TOP SCH (20:19)
[2023-11-04] MEDS: ASPIRIN 81MG ENTERIC TABLET PO SCH (20:22)
[2023-11-04] MEDS: FINASTERIDE 5MG TAB PO SCH (20:22)
[2023-11-04] MEDS: QUEtiapine FUMARATE 12.5 MG HALF-TAB PO SCH (20:22)
[2023-11-04] MEDS: LATANOPROST 0.005% OPHTH SOLN 2.5 ML OU SCH (20:23)
[2023-11-04] MEDS: ATORVASTATIN 20 MG TAB PO SCH (20:23)
[2023-11-05 03:36] VITALS: TEMP 98.1
[2023-11-05] MEDS: CEFEPIME HCL 2 GM in D5W MINI-BAG PLUS 50 ML IV SCH ×2 (05:11→16:42)
[2023-11-05 05:15] VITALS: BP 154/67; TEMP 98.8; O2SAT 97
[2023-11-05 06:35] LABS: BASO # 0.1 10^3/uL (0.0-0.2); BASO % 0.9 % (0.0-1.0); EOS # 0.6 10^3/uL (0.0-0.5); EOS % 4.2 % (0.0-3.0); HEMATOCRIT 43.9 % (42.0-52.0); LYMPH # 1.7 10^3/uL (1.5-5.0); LYMPH % 12.2 % (24.0-44.0); MEAN CORPUSCULAR HEMOGLOBIN 27.8 pg (27.0-33.0); MEAN CORPUSCULAR HGB CONC 31.9 g/dl (32.0-36.5); MEAN CORPUSCULAR VOLUME 87.1 fl (80.0-96.0); MONO # 1.7 10^3/uL (0.0-0.8); NEUTROPHILS # 9.8 10^3/uL (1.5-8.5); NEUTROPHILS % 70.1 % (36.0-66.0); PLATELET COUNT, AUTOMATED 320 10^3/uL (150-450); RED BLOOD COUNT 5.04 10^6/uL (4.30-6.10); WHITE BLOOD COUNT 13.9 10^3/uL (4.0-10.0)
[2023-11-05 07:06] LABS: CALCIUM LEVEL 8.4 MG/DL (8.3-10.6); CREATININE FOR GFR 2.09 MG/DL (0.70-1.30); GLOMERULAR FILTRATION RATE 32.6 (>35); POTASSIUM SERUM 3.9 MMOL/L (3.5-5.1)
[2023-11-05] MEDS: APIXABAN 2.5 MG TAB (ELIQUIS) PO SCH ×2 (08:32→19:51)
[2023-11-05] MEDS: SODIUM BICARBONATE 325 MG TAB PO SCH ×2 (08:32→19:51)
[2023-11-05] MEDS: TAMSULOSIN 0.4 MG CAP PO SCH ×2 (08:32→19:51)
[2023-11-05] MEDS: LEVEMIR (INSULIN DETEMIR) 1 UNITS/0.01ML SC SCH (08:33)
[2023-11-05] MEDS: INSULIN LISPRO (NovoLOG) PER UNIT SC SCH ×4 (08:33→19:52)
[2023-11-05] MEDS: LIDOCAINE 5% (LIDODERM) PATCH TD SCH ×3 (08:35→19:52)
[2023-11-05] MEDS: DICLOFENAC EPOLAMINE 1.3% PATCH TOP SCH ×2 (08:35→19:50)
[2023-11-05] MEDS: NYSTATIN 500,000U/5ML SUSP UDC SS SCH ×2 (18:19→19:51)
[2023-11-05] MEDS: ATORVASTATIN 20 MG TAB PO SCH (19:51)
[2023-11-05] MEDS: ASPIRIN 81MG ENTERIC TABLET PO SCH (19:51)
[2023-11-05] MEDS: FINASTERIDE 5MG TAB PO SCH (19:51)
[2023-11-05] MEDS: QUEtiapine FUMARATE 12.5 MG HALF-TAB PO SCH (19:52)
[2023-11-05] MEDS: LATANOPROST 0.005% OPHTH SOLN 2.5 ML OU SCH (19:54)
[2023-11-05 22:00] VITALS: BP 126/73; TEMP 97.1; O2SAT 96
[2023-11-06] MEDS: CEFEPIME HCL 2 GM in D5W MINI-BAG PLUS 50 ML IV SCH ×2 (04:04→16:57)
[2023-11-06 05:55] LABS: BASO # 0.1 10^3/uL (0.0-0.2); BASO % 0.9 % (0.0-1.0); EOS # 0.7 10^3/uL (0.0-0.5); EOS % 4.7 % (0.0-3.0); HEMATOCRIT 43.4 % (42.0-52.0); LYMPH # 1.6 10^3/uL (1.5-5.0); MEAN CORPUSCULAR HEMOGLOBIN 27.7 pg (27.0-33.0); MEAN CORPUSCULAR HGB CONC 32.3 g/dl (32.0-36.5); MEAN CORPUSCULAR VOLUME 85.9 fl (80.0-96.0); MONO # 1.6 10^3/uL (0.0-0.8); NEUTROPHILS # 10.3 10^3/uL (1.5-8.5); NEUTROPHILS % 71.8 % (36.0-66.0); PLATELET COUNT, AUTOMATED 325 10^3/uL (150-450); RED BLOOD COUNT 5.05 10^6/uL (4.30-6.10); WHITE BLOOD COUNT 14.4 10^3/uL (4.0-10.0)
[2023-11-06 06:00] VITALS: BP 157/72; TEMP 98; O2SAT 95
[2023-11-06 06:14] LABS: C REACTIVE PROTEIN QUANTITATIV 10.6 MG/DL (<1.0)
[2023-11-06 06:16] LABS: CALCIUM LEVEL 8.8 MG/DL (8.3-10.6); CREATININE FOR GFR 2.02 MG/DL (0.70-1.30); GLOMERULAR FILTRATION RATE 33.9 (>35); POTASSIUM SERUM 3.7 MMOL/L (3.5-5.1)
[2023-11-06] MEDS: INSULIN LISPRO (NovoLOG) PER UNIT SC SCH ×4 (06:55→20:12)
[2023-11-06 08:22] LABS: PROCALCITONIN 0.31 ng/ml
[2023-11-06] MEDS: SODIUM BICARBONATE 325 MG TAB PO SCH ×2 (08:30→20:07)
[2023-11-06] MEDS: APIXABAN 2.5 MG TAB (ELIQUIS) PO SCH ×2 (08:35→20:08)
[2023-11-06] MEDS: TAMSULOSIN 0.4 MG CAP PO SCH ×2 (08:35→20:08)
[2023-11-06] MEDS: NYSTATIN 500,000U/5ML SUSP UDC SS SCH ×4 (08:35→20:07)
[2023-11-06] MEDS: LEVEMIR (INSULIN DETEMIR) 1 UNITS/0.01ML SC SCH (08:35)
[2023-11-06] MEDS: LIDOCAINE 5% (LIDODERM) PATCH TD SCH ×3 (08:35→20:08)
[2023-11-06] MEDS: DICLOFENAC EPOLAMINE 1.3% PATCH TOP SCH ×2 (08:36→20:09)
[2023-11-06 09:04] LABS: ERYTHROCYTE SEDIMENTATION RATE 89 mm/hr (0-20)
[2023-11-06 14:00] VITALS: BP 148/61; TEMP 98.4; O2SAT 96
[2023-11-06 20:00] VITALS: BP 138/76; TEMP 98.6; O2SAT 93
[2023-11-06] MEDS: ASPIRIN 81MG ENTERIC TABLET PO SCH (20:07)
[2023-11-06] MEDS: QUEtiapine FUMARATE 12.5 MG HALF-TAB PO SCH (20:07)
[2023-11-06] MEDS: LATANOPROST 0.005% OPHTH SOLN 2.5 ML OU SCH (20:08)
[2023-11-06] MEDS: ACETAMINOPHEN 500 MG TAB PO PRN (20:08)
[2023-11-06] MEDS: ATORVASTATIN 20 MG TAB PO SCH (20:08)
[2023-11-06] MEDS: FINASTERIDE 5MG TAB PO SCH (20:08)
[2023-11-06 22:00] VITALS: BP 138/76; TEMP 98.6; O2SAT 93
[2023-11-06 22:01] VITALS: BP 138/76; TEMP 98.6; O2SAT 93
[2023-11-06] MEDS ORDERED: OLANZapine INTRAMUSCULAR 10MG VIAL IM ONE (23:00)
[2023-11-07] MEDS: CEFEPIME HCL 2 GM in D5W MINI-BAG PLUS 50 ML IV SCH ×2 (04:11→17:23)
[2023-11-07 05:48] LABS: BASO # 0.1 10^3/uL (0.0-0.2); BASO % 0.9 % (0.0-1.0); EOS # 0.5 10^3/uL (0.0-0.5); HEMATOCRIT 43.9 % (42.0-52.0); HEMOGLOBIN 13.9 g/dl (13.5-17.5); LYMPH # 1.5 10^3/uL (1.5-5.0); LYMPH % 11.2 % (24.0-44.0); MEAN CORPUSCULAR HEMOGLOBIN 27.7 pg (27.0-33.0); MEAN CORPUSCULAR HGB CONC 31.7 g/dl (32.0-36.5); MEAN CORPUSCULAR VOLUME 87.6 fl (80.0-96.0); MONO # 1.7 10^3/uL (0.0-0.8); MONO % 12.9 % (2.0-8.0); NEUTROPHILS # 9.3 10^3/uL (1.5-8.5); NEUTROPHILS % 70.4 % (36.0-66.0); PLATELET COUNT, AUTOMATED 325 10^3/uL (150-450); RED BLOOD COUNT 5.01 10^6/uL (4.30-6.10); WHITE BLOOD COUNT 13.2 10^3/uL (4.0-10.0)
[2023-11-07 06:00] VITALS: BP 131/84; TEMP 98.8; O2SAT 97
[2023-11-07 06:17] LABS: CALCIUM LEVEL 8.8 MG/DL (8.3-10.6); CREATININE FOR GFR 2.03 MG/DL (0.70-1.30); GLOMERULAR FILTRATION RATE 33.7 (>35); POTASSIUM SERUM 4.1 MMOL/L (3.5-5.1)
[2023-11-07] MEDS: TAMSULOSIN 0.4 MG CAP PO SCH ×2 (08:21→19:40)
[2023-11-07] MEDS: SODIUM BICARBONATE 325 MG TAB PO SCH ×2 (08:21→19:40)
[2023-11-07] MEDS: INSULIN LISPRO (NovoLOG) PER UNIT SC SCH ×4 (08:21→19:46)
[2023-11-07] MEDS: APIXABAN 2.5 MG TAB (ELIQUIS) PO SCH ×2 (08:21→19:40)
[2023-11-07] MEDS: LEVEMIR (INSULIN DETEMIR) 1 UNITS/0.01ML SC SCH ×2 (08:21→08:26)
[2023-11-07] MEDS: NYSTATIN 500,000U/5ML SUSP UDC SS SCH ×4 (08:21→19:39)
[2023-11-07] MEDS: LIDOCAINE 5% (LIDODERM) PATCH TD SCH ×3 (08:22→19:40)
[2023-11-07] MEDS: DICLOFENAC EPOLAMINE 1.3% PATCH TOP SCH ×2 (08:22→19:39)
[2023-11-07 14:00] VITALS: BP 120/62; TEMP 98.7; O2SAT 95
[2023-11-07] MEDS: ATORVASTATIN 20 MG TAB PO SCH (19:40)
[2023-11-07] MEDS: QUEtiapine FUMARATE 25 MG TAB PO SCH (19:40)
[2023-11-07] MEDS: FINASTERIDE 5MG TAB PO SCH (19:40)
[2023-11-07] MEDS: ASPIRIN 81MG ENTERIC TABLET PO SCH (19:40)
[2023-11-07] MEDS: LATANOPROST 0.005% OPHTH SOLN 2.5 ML OU SCH (19:41)
[2023-11-07 22:08] VITALS: BP 139/59; TEMP 97.5; O2SAT 96
[2023-11-08] MEDS: CEFEPIME HCL 2 GM in D5W MINI-BAG PLUS 50 ML IV SCH ×2 (04:09→17:16)
[2023-11-08 06:00] VITALS: BP 123/76; TEMP 98.8; O2SAT 97
[2023-11-08 06:47] LABS: BASO # 0.2 10^3/uL (0.0-0.2); BASO % 1.3 % (0.0-1.0); EOS # 0.7 10^3/uL (0.0-0.5); EOS % 5.6 % (0.0-3.0); HEMATOCRIT 46.3 % (42.0-52.0); HEMOGLOBIN 14.5 g/dl (13.5-17.5); LYMPH % 16.6 % (24.0-44.0); MEAN CORPUSCULAR HEMOGLOBIN 27.7 pg (27.0-33.0); MEAN CORPUSCULAR HGB CONC 31.3 g/dl (32.0-36.5); MEAN CORPUSCULAR VOLUME 88.5 fl (80.0-96.0); MONO # 1.5 10^3/uL (0.0-0.8); MONO % 12.3 % (2.0-8.0); NEUTROPHILS # 7.6 10^3/uL (1.5-8.5); NEUTROPHILS % 63.4 % (36.0-66.0); PLATELET COUNT, AUTOMATED 340 10^3/uL (150-450); RED BLOOD COUNT 5.23 10^6/uL (4.30-6.10); WHITE BLOOD COUNT 11.9 10^3/uL (4.0-10.0)
[2023-11-08 07:09] LABS: C REACTIVE PROTEIN QUANTITATIV 6.5 MG/DL (<1.0)
[2023-11-08 07:11] LABS: CALCIUM LEVEL 9.1 MG/DL (8.3-10.6); CREATININE FOR GFR 2.1 MG/DL (0.70-1.30); GLOMERULAR FILTRATION RATE 32.4 (>35); POTASSIUM SERUM 4.3 MMOL/L (3.5-5.1)
[2023-11-08 07:23] LABS: PROCALCITONIN 0.35 ng/ml
[2023-11-08 07:30] LABS: ERYTHROCYTE SEDIMENTATION RATE 64 mm/hr (0-20)
[2023-11-08] MEDS: INSULIN LISPRO (NovoLOG) PER UNIT SC SCH ×4 (08:20→20:19)
[2023-11-08] MEDS: LEVEMIR (INSULIN DETEMIR) 1 UNITS/0.01ML SC SCH (08:21)
[2023-11-08] MEDS: LIDOCAINE 5% (LIDODERM) PATCH TD SCH ×3 (08:21→21:14)
[2023-11-08] MEDS: APIXABAN 2.5 MG TAB (ELIQUIS) PO SCH ×2 (08:22→21:04)
[2023-11-08] MEDS: TAMSULOSIN 0.4 MG CAP PO SCH ×2 (08:22→21:04)
[2023-11-08] MEDS: NYSTATIN 500,000U/5ML SUSP UDC SS SCH ×4 (08:22→21:15)
[2023-11-08] MEDS: DICLOFENAC EPOLAMINE 1.3% PATCH TOP SCH ×2 (08:22→21:08)
[2023-11-08] MEDS: SODIUM BICARBONATE 325 MG TAB PO SCH ×2 (08:22→21:04)
[2023-11-08] MEDS: ACETAMINOPHEN 500 MG TAB PO PRN ×2 (08:32→21:21)
[2023-11-08 10:22] VITALS: BP 126/45; TEMP 97.9; O2SAT 96
[2023-11-08 14:00] VITALS: BP 130/52; TEMP 98.1; O2SAT 97
[2023-11-08 20:40] VITALS: BP 106/73; TEMP 98.1; O2SAT 96
[2023-11-08] MEDS: QUEtiapine FUMARATE 25 MG TAB PO SCH (21:04)
[2023-11-08] MEDS: FINASTERIDE 5MG TAB PO SCH (21:04)
[2023-11-08] MEDS: ATORVASTATIN 20 MG TAB PO SCH (21:04)
[2023-11-08] MEDS: LATANOPROST 0.005% OPHTH SOLN 2.5 ML OU SCH (21:04)
[2023-11-08] MEDS: ASPIRIN 81MG ENTERIC TABLET PO SCH (21:04)
[2023-11-09] MEDS: CEFEPIME HCL 2 GM in D5W MINI-BAG PLUS 50 ML IV SCH ×2 (04:15→17:12)
[2023-11-09 05:05] VITALS: BP 135/63; TEMP 98.3; O2SAT 97
[2023-11-09 06:43] LABS: BASO # 0.2 10^3/uL (0.0-0.2); BASO % 1.4 % (0.0-1.0); EOS # 0.8 10^3/uL (0.0-0.5); EOS % 7.1 % (0.0-3.0); HEMOGLOBIN 14.3 g/dl (13.5-17.5); LYMPH # 2.2 10^3/uL (1.5-5.0); LYMPH % 20.6 % (24.0-44.0); MEAN CORPUSCULAR HEMOGLOBIN 27.3 pg (27.0-33.0); MEAN CORPUSCULAR HGB CONC 31.1 g/dl (32.0-36.5); MONO # 1.3 10^3/uL (0.0-0.8); MONO % 11.8 % (2.0-8.0); NEUTROPHILS # 6.3 10^3/uL (1.5-8.5); NEUTROPHILS % 58.4 % (36.0-66.0); PLATELET COUNT, AUTOMATED 366 10^3/uL (150-450); RED BLOOD COUNT 5.23 10^6/uL (4.30-6.10); WHITE BLOOD COUNT 10.8 10^3/uL (4.0-10.0)
[2023-11-09 08:08] LABS: CALCIUM LEVEL 8.9 MG/DL (8.3-10.6); CREATININE FOR GFR 2.1 MG/DL (0.70-1.30); GLOMERULAR FILTRATION RATE 32.4 (>35); POTASSIUM SERUM 4.4 MMOL/L (3.5-5.1)
[2023-11-09] MEDS: INSULIN LISPRO (NovoLOG) PER UNIT SC SCH ×4 (08:44→21:00)
[2023-11-09] MEDS: APIXABAN 2.5 MG TAB (ELIQUIS) PO SCH ×2 (08:44→21:53)
[2023-11-09] MEDS: LEVEMIR (INSULIN DETEMIR) 1 UNITS/0.01ML SC SCH (08:44)
[2023-11-09] MEDS: NYSTATIN 500,000U/5ML SUSP UDC SS SCH ×4 (08:44→21:53)
[2023-11-09] MEDS: TAMSULOSIN 0.4 MG CAP PO SCH ×2 (08:44→21:53)
[2023-11-09] MEDS: SODIUM BICARBONATE 325 MG TAB PO SCH ×2 (08:44→21:53)
[2023-11-09] MEDS: LIDOCAINE 5% (LIDODERM) PATCH TD SCH ×3 (08:45→21:54)
[2023-11-09] MEDS: DICLOFENAC EPOLAMINE 1.3% PATCH TOP SCH ×2 (08:45→21:56)
[2023-11-09] MEDS: MIRALAX *UNIT DOSE* 17GM PACKET PO SCH (09:00)
[2023-11-09] MEDS: DOCUSATE SODIUM 100MG CAPSULE PO SCH ×2 (13:30→21:53)
[2023-11-09 14:00] VITALS: BP 155/62; TEMP 98.2; O2SAT 97
[2023-11-09 15:23] VITALS: BP 140/70
[2023-11-09] MEDS: ASPIRIN 81MG ENTERIC TABLET PO SCH (21:52)
[2023-11-09] MEDS: ATORVASTATIN 20 MG TAB PO SCH (21:52)
[2023-11-09] MEDS: QUEtiapine FUMARATE 25 MG TAB PO SCH (21:53)
[2023-11-09] MEDS: LATANOPROST 0.005% OPHTH SOLN 2.5 ML OU SCH (21:53)
[2023-11-09] MEDS: FINASTERIDE 5MG TAB PO SCH (21:53)
[2023-11-09 22:00] VITALS: BP 137/75; TEMP 98.8; O2SAT 97
[2023-11-10] MEDS: CEFEPIME HCL 2 GM in D5W MINI-BAG PLUS 50 ML IV SCH ×2 (04:34→17:13)
[2023-11-10 06:00] VITALS: BP 149/66; TEMP 98.6; O2SAT 96
[2023-11-10 06:10] LABS: BASO # 0.2 10^3/uL (0.0-0.2); BASO % 1.4 % (0.0-1.0); EOS # 0.7 10^3/uL (0.0-0.5); EOS % 6.4 % (0.0-3.0); HEMATOCRIT 44.8 % (42.0-52.0); HEMOGLOBIN 14.2 g/dl (13.5-17.5); LYMPH # 2.4 10^3/uL (1.5-5.0); LYMPH % 21.7 % (24.0-44.0); MEAN CORPUSCULAR HEMOGLOBIN 28.2 pg (27.0-33.0); MEAN CORPUSCULAR HGB CONC 31.7 g/dl (32.0-36.5); MEAN CORPUSCULAR VOLUME 89.1 fl (80.0-96.0); MONO # 1.3 10^3/uL (0.0-0.8); MONO % 11.8 % (2.0-8.0); NEUTROPHILS # 6.4 10^3/uL (1.5-8.5); NEUTROPHILS % 57.9 % (36.0-66.0); PLATELET COUNT, AUTOMATED 359 10^3/uL (150-450); RED BLOOD COUNT 5.03 10^6/uL (4.30-6.10); WHITE BLOOD COUNT 11.1 10^3/uL (4.0-10.0)
[2023-11-10 06:23] LABS: ERYTHROCYTE SEDIMENTATION RATE 67 mm/hr (0-20)
[2023-11-10 06:32] LABS: C REACTIVE PROTEIN QUANTITATIV 2.2 MG/DL (<1.0)
[2023-11-10 06:46] LABS: PROCALCITONIN 0.3 ng/ml
[2023-11-10] MEDS: DICLOFENAC EPOLAMINE 1.3% PATCH TOP SCH ×2 (08:16→20:03)
[2023-11-10] MEDS: LIDOCAINE 5% (LIDODERM) PATCH TD SCH ×3 (08:17→20:03)
[2023-11-10] MEDS: DOCUSATE SODIUM 100MG CAPSULE PO SCH ×2 (08:21→20:03)
[2023-11-10] MEDS: TAMSULOSIN 0.4 MG CAP PO SCH ×2 (08:21→20:03)
[2023-11-10] MEDS: APIXABAN 2.5 MG TAB (ELIQUIS) PO SCH ×2 (08:21→20:03)
[2023-11-10] MEDS: NYSTATIN 500,000U/5ML SUSP UDC SS SCH ×4 (08:21→20:03)
[2023-11-10] MEDS: SODIUM BICARBONATE 325 MG TAB PO SCH ×2 (08:21→20:03)
[2023-11-10] MEDS: INSULIN LISPRO (NovoLOG) PER UNIT SC SCH ×4 (08:22→21:00)
[2023-11-10] MEDS: MIRALAX *UNIT DOSE* 17GM PACKET PO SCH (08:22)
[2023-11-10] MEDS: LEVEMIR (INSULIN DETEMIR) 1 UNITS/0.01ML SC SCH (08:23)
[2023-11-10] MEDS: ACETAMINOPHEN 500 MG TAB PO PRN ×2 (08:29→22:03)
[2023-11-10 14:00] VITALS: BP 114/80; TEMP 97.9; O2SAT 99
[2023-11-10] MEDS: QUEtiapine FUMARATE 25 MG TAB PO SCH (20:03)
[2023-11-10] MEDS: ATORVASTATIN 20 MG TAB PO SCH (20:03)
[2023-11-10] MEDS: ASPIRIN 81MG ENTERIC TABLET PO SCH (20:03)
[2023-11-10] MEDS: FINASTERIDE 5MG TAB PO SCH (20:03)
[2023-11-10] MEDS: LATANOPROST 0.005% OPHTH SOLN 2.5 ML OU SCH (20:04)
[2023-11-10 20:22] VITALS: BP 147/62; TEMP 98.1; O2SAT 97
[2023-11-11] MEDS: CEFEPIME HCL 2 GM in D5W MINI-BAG PLUS 50 ML IV SCH (05:10)
[2023-11-11 05:57] VITALS: BP 142/68; TEMP 98.2; O2SAT 97
[2023-11-11 07:00] VITALS: BP 122/76; TEMP 97; O2SAT 99
[2023-11-11] MEDS: INSULIN LISPRO (NovoLOG) PER UNIT SC SCH (08:26)
[2023-11-11] MEDS: SODIUM BICARBONATE 325 MG TAB PO SCH (09:41)
[2023-11-11] MEDS: LIDOCAINE 5% (LIDODERM) PATCH TD SCH ×3 (09:41→10:22)
[2023-11-11] MEDS: DICLOFENAC EPOLAMINE 1.3% PATCH TOP SCH (09:41)
[2023-11-11] MEDS: MIRALAX *UNIT DOSE* 17GM PACKET PO SCH (09:41)
[2023-11-11] MEDS: APIXABAN 2.5 MG TAB (ELIQUIS) PO SCH (09:42)
[2023-11-11] MEDS: TAMSULOSIN 0.4 MG CAP PO SCH (09:42)
[2023-11-11] MEDS: LEVEMIR (INSULIN DETEMIR) 1 UNITS/0.01ML SC SCH (09:42)
[2023-11-11] MEDS: DOCUSATE SODIUM 100MG CAPSULE PO SCH (09:42)
[2023-11-11] MEDS: NYSTATIN 500,000U/5ML SUSP UDC SS SCH (10:23)
[2023-11-11] MEDS ORDERED: LANTINJ4 SC (10:52)
[2023-11-11] MEDS ORDERED: MIRA3350 PO (10:52)
[2023-11-11] MEDS ORDERED: QUET1TAB17 PO (10:52)
[2023-11-11] MEDS ORDERED: COLA100C5 PO (10:52)
== END 2023-11-11 12:00 | DRG 683 ==
LOC: M ED 12:41 → EDBD 12:41 → M ED INP 15:46 → ENRESERV 16:05 → M MSPAV 17:01
PROVIDERS: ADMIT Internal Medicine; ATTEND Internal Medicine
DX: N17.9 Acute kidney failure, unspecified (principal); I13.0 Hypertensive heart and chronic kidney disease with heart failure and stage 1 through stage 4 chronic kidney disease, or unspecified chronic kidney disease; I50.32 Chronic diastolic (congestive) heart failure; N39.0 Urinary tract infection, site not specified; G91.2 (Idiopathic) normal pressure hydrocephalus; E87.20 Acidosis, unspecified; N13.4 Hydroureter; R44.3 Hallucinations, unspecified; E87.0 Hyperosmolality and hypernatremia; B37.0 Candidal stomatitis; F03.90 Unspecified dementia, unspecified severity, without behavioral disturbance, psychotic disturbance, mood disturbance, and anxiety; E11.22 Type 2 diabetes mellitus with diabetic chronic kidney disease; I83.008 Varicose veins of unspecified lower extremity with ulcer other part of lower leg; E78.5 Hyperlipidemia, unspecified; I87.2 Venous insufficiency (chronic) (peripheral); N40.1 Benign prostatic hyperplasia with lower urinary tract symptoms; M54.50 Low back pain, unspecified; N18.4 Chronic kidney disease, stage 4 (severe); N13.30 Unspecified hydronephrosis; K21.9 Gastro-esophageal reflux disease without esophagitis; E11.51 Type 2 diabetes mellitus with diabetic peripheral angiopathy without gangrene; E11.628 Type 2 diabetes mellitus with other skin complications; R29.6 Repeated falls; G89.29 Other chronic pain; E11.621 Type 2 diabetes mellitus with foot ulcer; R26.89 Other abnormalities of gait and mobility; I48.91 Unspecified atrial fibrillation; I25.10 Atherosclerotic heart disease of native coronary artery without angina pectoris; Z66 Do not resuscitate; Z79.01 Long term (current) use of anticoagulants; Z86.73 Personal history of transient ischemic attack (TIA), and cerebral infarction without residual deficits; Z79.82 Long term (current) use of aspirin; Z79.4 Long term (current) use of insulin; Z79.899 Other long term (current) drug therapy; Z95.0 Presence of cardiac pacemaker; Z20.822 Contact with and (suspected) exposure to COVID-19

== ENCOUNTER → 2023-11-16 | Outpatient (REF) ==
[~2023-11-16] MED LIST changes: +BIMA01SOL OU; +COMB0.2S OU; +MIRA3350 PO; +QUET1TAB17 PO; +THERTAB52 PO; +TOUJ1.2I SC
[2023-11-16 07:02] LABS: HEMATOCRIT 47.6 % (42.0-52.0); MEAN CORPUSCULAR HGB CONC 31.5 g/dl (32.0-36.5); PLATELET COUNT, AUTOMATED 354 10^3/uL (150-450); RED BLOOD COUNT 5.35 10^6/uL (4.30-6.10); WHITE BLOOD COUNT 15.5 10^3/uL (4.0-10.0)
[2023-11-16 07:18] LABS: HEMOGLOBIN A1c 6.3 % (4.0-6.0)
[2023-11-16 07:25] LABS: ALBUMIN 2.4 G/DL (3.2-5.2); BILIRUBIN,TOTAL 0.6 MG/DL (0.3-1.2); CREATININE FOR GFR 2.07 MG/DL (0.70-1.30); POTASSIUM SERUM 4.7 MMOL/L (3.5-5.1); TOTAL PROTEIN 6.2 G/DL (5.7-8.2)
== END ==
LOC: SKLAB5 08:43
PROVIDERS: ATTEND Nurse Practitioner Family
DX: I48.91 Unspecified atrial fibrillation (principal); N18.9 Chronic kidney disease, unspecified

== ENCOUNTER → 2023-11-23 | Outpatient (REF) ==
[2023-11-23 09:57] LABS: BASO # 0.1 10^3/uL (0.0-0.2); BASO % 0.9 % (0.0-1.0); EOS # 0.7 10^3/uL (0.0-0.5); EOS % 5.4 % (0.0-3.0); HEMATOCRIT 47.7 % (42.0-52.0); HEMOGLOBIN 14.7 g/dl (13.5-17.5); LYMPH % 14.9 % (24.0-44.0); MEAN CORPUSCULAR HEMOGLOBIN 27.3 pg (27.0-33.0); MEAN CORPUSCULAR HGB CONC 30.8 g/dl (32.0-36.5); MEAN CORPUSCULAR VOLUME 88.7 fl (80.0-96.0); MONO # 1.3 10^3/uL (0.0-0.8); MONO % 10.2 % (2.0-8.0); NEUTROPHILS # 8.9 10^3/uL (1.5-8.5); NEUTROPHILS % 67.8 % (36.0-66.0); PLATELET COUNT, AUTOMATED 383 10^3/uL (150-450); RED BLOOD COUNT 5.38 10^6/uL (4.30-6.10); WHITE BLOOD COUNT 13.1 10^3/uL (4.0-10.0)
[2023-11-23 10:27] LABS: ALBUMIN 2.7 G/DL (3.2-5.2); BILIRUBIN,TOTAL 0.5 MG/DL (0.3-1.2); CALCIUM LEVEL 9.2 MG/DL (8.3-10.6); CREATININE FOR GFR 1.89 MG/DL (0.70-1.30); GLOMERULAR FILTRATION RATE 36.6 (>35); POTASSIUM SERUM 4.8 MMOL/L (3.5-5.1); TOTAL PROTEIN 6.4 G/DL (5.7-8.2)
[2023-11-23 10:28] LABS: PTH INTACT 49.9 PG/ML (18.5-88.0)
[2023-11-23 14:25] LABS: AMORPHOUS SEDIMENT SMALL (NEGATIVE); APPEARANCE, URINE TURBID (CLEAR); BACTERIA, URINE AUTO 1+ (NEGATIVE); BILIRUBIN, URINE AUTO NEGATIVE (NEGATIVE); BLOOD, URINE BLOOD 1+ (NEGATIVE); COLOR, URINE YELLOW (YELLOW); GLUCOSE, URINE (UA) AUTO NEGATIVE (NEGATIVE); KETONE, URINE AUTO NEGATIVE (NEGATIVE); LEUKOCYTE ESTERASE, URINE AUTO 3+ (NEGATIVE); MUCUS, URINE SMALL (NEGATIVE); NITRITE, URINE AUTO NEGATIVE (NEGATIVE); PROTEIN, URINE AUTO 2+ mg/dL (NEGATIVE); RBC, URINE AUTO 39 /HPF (0-3); SPECIFIC GRAVITY URINE AUTO 1.013 (1.002-1.035); SQUAMOUS EPITHELIAL CELL UR AU 0 /HPF (0-6); UROBILINOGEN, URINE AUTO 0.2 mg/dL (0.0-2.0); WBC, URINE AUTO TNTC /HPF (0-3)
== END ==
LOC: SKLAB5 09:39
PROVIDERS: ATTEND Nurse Practitioner Family
DX: N18.9 Chronic kidney disease, unspecified (principal)

== ENCOUNTER → 2023-11-26 | Outpatient (REF) ==
[2023-11-26 17:54] LABS: HEMOGLOBIN A1c 6.6 % (4.0-6.0)
== END ==
LOC: SKLAB5 10:45
PROVIDERS: ATTEND Nurse Practitioner Family
DX: R25.1 Tremor, unspecified (principal); E11.9 Type 2 diabetes mellitus without complications

== ENCOUNTER → 2023-11-30 | Outpatient (REF) ==
[2023-11-30 07:37] LABS: HEMATOCRIT 42.1 % (42.0-52.0); HEMOGLOBIN 13.6 g/dl (13.5-17.5); MEAN CORPUSCULAR HEMOGLOBIN 27.4 pg (27.0-33.0); MEAN CORPUSCULAR HGB CONC 32.3 g/dl (32.0-36.5); MEAN CORPUSCULAR VOLUME 84.9 fl (80.0-96.0); PLATELET COUNT, AUTOMATED 302 10^3/uL (150-450); RED BLOOD COUNT 4.96 10^6/uL (4.30-6.10); WHITE BLOOD COUNT 16.2 10^3/uL (4.0-10.0)
[2023-11-30 08:01] LABS: ALBUMIN 2.2 G/DL (3.2-5.2); BILIRUBIN,TOTAL 0.4 MG/DL (0.3-1.2); CALCIUM LEVEL 8.7 MG/DL (8.3-10.6); CREATININE FOR GFR 1.95 MG/DL (0.70-1.30); GLOMERULAR FILTRATION RATE 35.3 (>35); POTASSIUM SERUM 4.6 MMOL/L (3.5-5.1)
== END ==
LOC: SKLAB5 08:07
PROVIDERS: ATTEND Nurse Practitioner Family
DX: N18.9 Chronic kidney disease, unspecified (principal)

== ENCOUNTER → 2023-12-12 | Outpatient (REF) ==
[2023-12-12 12:41] LABS: CALCIUM LEVEL 7.9 MG/DL (8.3-10.6); CREATININE FOR GFR 2.01 MG/DL (0.70-1.30); GLOMERULAR FILTRATION RATE 34.1 (>35); POTASSIUM SERUM 4.3 MMOL/L (3.5-5.1)
== END ==
LOC: SKLAB5 09:16
PROVIDERS: ATTEND Physician Assistant
DX: R11.2 Nausea with vomiting, unspecified (principal)

== ENCOUNTER → 2023-12-13 | Outpatient (REF) ==
[2023-12-13 07:45] LABS: BASO # 0.1 10^3/uL (0.0-0.2); BASO % 0.8 % (0.0-1.0); EOS # 0.7 10^3/uL (0.0-0.5); EOS % 6.2 % (0.0-3.0); HEMATOCRIT 41.6 % (42.0-52.0); HEMOGLOBIN 13.2 g/dl (13.5-17.5); LYMPH # 2.2 10^3/uL (1.5-5.0); LYMPH % 20.2 % (24.0-44.0); MEAN CORPUSCULAR HEMOGLOBIN 26.9 pg (27.0-33.0); MEAN CORPUSCULAR HGB CONC 31.7 g/dl (32.0-36.5); MEAN CORPUSCULAR VOLUME 84.9 fl (80.0-96.0); MONO # 1.4 10^3/uL (0.0-0.8); MONO % 12.2 % (2.0-8.0); NEUTROPHILS # 6.5 10^3/uL (1.5-8.5); NEUTROPHILS % 59.3 % (36.0-66.0); PLATELET COUNT, AUTOMATED 399 10^3/uL (150-450)
[2023-12-13 08:14] LABS: ALBUMIN 2.1 G/DL (3.2-5.2); CREATININE FOR GFR 1.89 MG/DL (0.70-1.30); GLOMERULAR FILTRATION RATE 36.6 (>35); MAGNESIUM LEVEL 1.9 MG/DL (1.8-2.4); PHOSPHORUS LEVEL 3.3 MG/DL (2.4-5.1); POTASSIUM SERUM 4.2 MMOL/L (3.5-5.1); PTH INTACT 73.4 PG/ML (18.5-88.0)
[2023-12-13 12:38] LABS: APPEARANCE, URINE HAZY (CLEAR); BACTERIA, URINE AUTO 2+ (NEGATIVE); BILIRUBIN, URINE AUTO NEGATIVE (NEGATIVE); BLOOD, URINE BLOOD 1+ (NEGATIVE); CALCIUM OXALATE CRYSTALS SMALL; COLOR, URINE YELLOW (YELLOW); GLUCOSE, URINE (UA) AUTO NEGATIVE (NEGATIVE); KETONE, URINE AUTO NEGATIVE (NEGATIVE); LEUKOCYTE ESTERASE, URINE AUTO 3+ (NEGATIVE); NITRITE, URINE AUTO POSITIVE (NEGATIVE); PROTEIN, URINE AUTO 2+ mg/dL (NEGATIVE); RBC, URINE AUTO 6 /HPF (0-3); SPECIFIC GRAVITY URINE AUTO 1.012 (1.002-1.035); SQUAMOUS EPITHELIAL CELL UR AU 0 /HPF (0-6); UROBILINOGEN, URINE AUTO 0.2 mg/dL (0.0-2.0); WBC, URINE AUTO 144 /HPF (0-3)
== END ==
LOC: SKLAB5 15:50
PROVIDERS: ATTEND Nurse Practitioner Family
DX: N18.9 Chronic kidney disease, unspecified (principal); I12.9 Hypertensive chronic kidney disease with stage 1 through stage 4 chronic kidney disease, or unspecified chronic kidney disease; I87.309 Chronic venous hypertension (idiopathic) without complications of unspecified lower extremity

== ENCOUNTER → 2023-12-13 | Outpatient (REF) | LOC: SKLAB5 15:50 | PROVIDERS: ATTEND Internal Medicine | DX: R11.2 Nausea with vomiting, unspecified (principal); Z53.8 Procedure and treatment not carried out for other reasons ==

== ENCOUNTER → 2024-01-04 | Outpatient (REF) | payer MEDICARE, OTHER ==
[2024-01-04 14:00] LABS: FOLATE 12.15 NG/ML (>5.4); THYROID STIMULATING HORMONE 3.164 uIU/ML (0.55-4.78)
== END ==
LOC: SKLAB5 12:03
PROVIDERS: ATTEND Nurse Practitioner Family
DX: G62.9 Polyneuropathy, unspecified (principal); Z79.899 Other long term (current) drug therapy

== ENCOUNTER → 2024-01-17 | Outpatient (REF) | payer MEDICARE ==
[~2024-01-17] MED LIST changes: +MEMA10TA PO; -MEMA10TA19 PO
[2024-01-17 11:18] LABS: BASO # 0.1 10^3/uL (0.0-0.2); BASO % 0.8 % (0.0-1.0); EOS # 0.6 10^3/uL (0.0-0.5); HEMATOCRIT 39.3 % (42.0-52.0); HEMOGLOBIN 12.2 g/dl (13.5-17.5); LYMPH # 1.9 10^3/uL (1.5-5.0); LYMPH % 12.4 % (24.0-44.0); MEAN CORPUSCULAR HEMOGLOBIN 25.6 pg (27.0-33.0); MEAN CORPUSCULAR VOLUME 82.6 fl (80.0-96.0); MONO # 1.4 10^3/uL (0.0-0.8); NEUTROPHILS # 11.2 10^3/uL (1.5-8.5); NEUTROPHILS % 72.8 % (36.0-66.0); PLATELET COUNT, AUTOMATED 531 10^3/uL (150-450); RED BLOOD COUNT 4.76 10^6/uL (4.30-6.10); WHITE BLOOD COUNT 15.4 10^3/uL (4.0-10.0)
[2024-01-17 11:35] LABS: INR 1.34; PROTHROMBIN TIME 16.2 SECONDS (12.5-14.5)
[2024-01-17 11:49] LABS: BILIRUBIN,TOTAL 0.4 MG/DL (0.3-1.2); CALCIUM LEVEL 9.6 MG/DL (8.3-10.6); CREATININE FOR GFR 1.77 MG/DL (0.70-1.30); GLOMERULAR FILTRATION RATE 39.5 (>35); TOTAL PROTEIN 6.7 G/DL (5.7-8.2)
== END ==
LOC: SKLAB4 10:36
PROVIDERS: ATTEND Nurse Practitioner Family
DX: R17 Unspecified jaundice (principal)

== ENCOUNTER → 2024-01-18 | Outpatient (CLI) | payer MEDICARE | LOC: M RAD 10:49 | PROVIDERS: ATTEND Nurse Practitioner Family | DX: K82.8 Other specified diseases of gallbladder (principal); R16.0 Hepatomegaly, not elsewhere classified; R10.11 Right upper quadrant pain; R74.01 Elevation of levels of liver transaminase levels ==

== ENCOUNTER → 2024-01-21 | Outpatient (CLI) | payer MEDICARE | LOC: M RAD 13:46 | PROVIDERS: ATTEND Psychiatry & Neurology Neurology | DX: G91.2 (Idiopathic) normal pressure hydrocephalus (principal); R26.81 Unsteadiness on feet ==